=== PATIENT | male | born 1995 | race Caucasian/White ===

== ENCOUNTER → 2018-01-18 16:13 | Outpatient (CLI) | payer BC, SELFPAY ==
--- NOTE | 2018-01-18 16:17 | XR_ITS ---
XR knee RT 3V HISTORY: ITS.REASON: RIGHT KNEE PAIN ORDERING PHYSICIAN: Rylee Alexander PATIENT AGE: 22 years COMPARISON: None FINDINGS: No fracture or dislocation. No lytic or blastic change. Normal mineralization. No significant arthritic changes evident. No other significant findings IMPRESSION: Negative Knee
== END ==
PROVIDERS: PCP Nurse Practitioner Family; Visit Provider Nurse Practitioner Family
DX: M25.561 Pain in right knee (principal)
CPT/HCPCS: 73562

== ENCOUNTER → 2018-01-26 14:54 | Outpatient (CLI) | payer BC, SELFPAY ==
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
== END ==
PROVIDERS: Family Provider Family Medicine; PCP Nurse Practitioner Family; Visit Provider Family Medicine
DX: M25.561 Pain in right knee (principal)
CPT/HCPCS: 73721

== ENCOUNTER → 2018-08-03 10:27 | Outpatient (CLI) | payer BC, SELFPAY ==
--- NOTE | 2018-08-03 10:37 | NVE_ITS ---
Venous Exam Indications: 729.81 Swelling of limb. IMPRESSIONS 1. There is no evidence of significant Reflux. 2. No evidence of deep or superficial vein thrombosis involving the right lower extremity 3. No evidence of deep or superficial vein thrombosis involving the left lower extremity History: Risk factors: Obese. Complete lower extremity venous duplex evaluation. Doppler flow study including spectral analysis, color and moran scale imaging. Location: Vascular laboratory. Patient status: Outpatient. CRITICAL FINDINGS - Reported to: [facility] office - 08/03/2018 - 10:55 am - Neg. for DVT Tables: Venous flow and imaging: + +-------+ + Location Overall Flow properties + +-------+ + Right common femoral Patent Normal phasicity; spontaneous; normal augmentation; compressible + +-------+ + Right saphenofemoral junction Patent Compressible + +-------+ + Right profunda femoral Patent Compressible + +-------+ + Right femoral Patent Normal phasicity; spontaneous; normal augmentation; compressible; no reflux + +-------+ + Right greater saphenous Patent Normal phasicity; spontaneous; normal augmentation; compressible + +-------+ + Right popliteal Patent Normal phasicity; spontaneous; normal augmentation; compressible + +-------+ + Right posterior tibial Patent Compressible + +-------+ + Right peroneal Patent Compressible + +-------+ + Right gastrocnemius Patent Compressible + +-------+ + Right soleal Patent Compressible + +-------+ + Left common femoral Patent Normal phasicity; spontaneous; normal augmentation; compressible + +-------+ + Left saphenofemoral junction Patent Compressible + +-------+ + Left profunda femoral Patent Compressible + +-------+ + Left femoral Patent Normal phasicity; spontaneous; normal augmentation; compressible + +-------+ + Left greater saphenous
--- NOTE | 2018-08-03 11:05 | XR_ITS ---
XR chest 2V HISTORY: ITS.REASON: COUGH ORDERING PHYSICIAN: Richardson Melgoza MD PATIENT AGE: 22 years COMPARISON: 02/23/2015 FINDINGS: There is cardiomegaly with pulmonary venous congestion and interstitial edema consistent with congestive heart failure. No lobar consolidation or collapse is evident. Suspect trace bilateral effusions. No acute bony findings. IMPRESSION: CHF with interstitial edema and trace bilateral effusions Significant findings called to Richardson Melgoza MD on 08/03/2018 11:25 AM.
== END ==
PROVIDERS: PCP Family Medicine; Visit Provider Family Medicine
DX: R05 Cough (principal); R60.9 Edema, unspecified
CPT/HCPCS: 71046; 93970

== ENCOUNTER 2019-11-17 12:59 | Emergency (ER) | payer BC, SELFPAY ==
[2019-11-17 13:18] VITALS: BP 149/97; PULSE 96; RESP 18; TEMP 36.2; O2SAT 97; BMI 42.3
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
[2019-11-17 14:02] VITALS: BP 149/97; PULSE 96; RESP 18; TEMP 36.2; O2SAT 97
== END 2019-11-17 14:03 | disposition home or self-care (01) ==
PROVIDERS: Emergency Provider Nurse Practitioner Family; PCP Family Medicine
DX: Z20.828 Contact with and (suspected) exposure to other viral communicable diseases (principal)
CPT/HCPCS: 99201; U0003

== ENCOUNTER 2020-03-04 17:09 | Emergency (ER) | payer BC, SELFPAY ==
[2020-03-04 17:20] VITALS: BP 155/91; PULSE 84; RESP 18; TEMP 36.9; O2SAT 99; BMI 39.8
--- NOTE | 2020-03-04 17:39 | HMH.EDUTC ---
[facility] [place] [facility] [place] Clinical Impression: Urinary problem in male Disposition: Still a Patient Condition on Discharge: Good Referrals: Richardson Melgoza MD [Primary Care Provider] - Time of Disposition: 17:51 Medical Decision Making - Robert Inquiry Pt receiving controlled substance: No Robert was queried for this patient: No Vital Signs: 03/04/20 17:20 Temperature 98.4 F Temperature Source Oral Pulse Rate [Right Brachial] 84 Respiratory Rate 18 Blood Pressure [Right Arm] 155/91 H Blood Pressure Mean [Right Arm] 112 Blood Pressure Source [Right Arm] Automatic Cuff Blood Pressure Position [Right Arm] Sitting 02 Sat by Pulse Oximetry 99 Oxygen Delivery Method Room Air - Lab Data Lab results reviewed: Yes: I reviewed the patient's lab results. Medical Decision Narrative: Urine dip completed in [facility] patient denies history of kidney stones, complains of bilateral flank pain and hurting when he urinates, Urine dip showed large blood and 3+protein, Patient reports not feeling right having flank pain, Spoke with Dr Pavon in ED and patient transferred to ED for further work up and evaluation Patient transferred to room 5 without complications [facility] [place] [facility] [place] HPI - General Stated complaint: need Kidney function checked Time Seen by Provider: 03/04/20 17:39 Mode of Arrival: Ambulatory Source of Information: Patient Limitations: No Limitations Description of Symptoms (Recalled from Triage Doc. by RN): PATIENT C/O OCCASIONAL DISCOMFORT WHEN URINATING HEENT Symptoms (Recalled from RN notes): No Resp Symptoms (Recalled from RN notes): No Skin Symptoms (Recalled from RN notes): No MS Symptoms (Recalled from RN notes): No Functional Status (Recalled from RN notes): WNL - History of Present Illness Provider Complaint: Patient state that he has history of Kidney failure/problems States that he has been having some pain on and off when he urinates but last night started having pain in his back around his kidneys States that it has continued to get worse and just hurts and dont feel right States that he had kidney failure last year and feels like it did then State that today he just has not felt well and felt off, the pain in his kidneys has continued State that he called his PCP and the office was closed so he came in to get checked worried that his kidney function will be off again and wanted to get checked early - Related Data Allergies Allergy/AdvReac Type Severity Reaction Status Date / Time Penicillins [PENICILLINS] Allergy Unknown Verified 12/30/17 10:06 - Worker's Comp Is this a Worker's Comp case?: No [facility] History - Hepatitis A Screen Drug use history?: No High risk sexual behaviors?: No History of sexually transmitted infection?: No Currently employed?: No Childcare worker?: No Do you have indoor plumbing?: Yes Do you have electricity?: Yes Attestation statement:: This patient has been screened for Hepatitis A risk factors. Medical History: Denies:: Cancer, Diabetes Mellitus Type 1, Diabetes Mellitus Type 2, Internal Pacemaker, MRSA Other Surgeries: No: Pacemaker Amputation: No Fractures: No - Social History Smoking Status: Never smoker Alcohol Intake: never Occupational Status: other ROS Obtained: Yes All systems reviewed & no additional complaints, Yes Systems reviewed as appropriate & no additional complaints - Constitutional Constitutional: Reports system reviewed and no additional complaints, except as docu, Denies fever(s) - ENT Ears, Nose, Mouth, and Throat: Reports system reviewed and no additional complaints, except as docu, Reports dizziness - Respiratory Respiratory: Yes system reviewed and no additional complaints, except as docu - Gastrointestinal Gastrointestingal: Reports: system reviewed and no additional complaints, except as docu - Genitourinary Male Genitourinary: Reports flank pain, Reports other (Reports pain with urination at times, pain in kidney area ) [facility]ica
[2020-03-04 17:43] VITALS: BP 151/102; PULSE 80; O2SAT 98
--- NOTE | 2020-03-04 17:45 | PC.NURSE ---
PATIENT SENT TO ER PER CASSIA GUIDRY APRN WHO GAVE REPORT TO Eugenio LOUIS RN
--- NOTE | 2020-03-04 17:49 | XR_ITS ---
PROCEDURE: XR CHEST PORTABLE CLINICAL HISTORY: cough COMPARISON: CR CXR CHEST(2 VIEWS-NOT PORTABLE) from 02/23/2015 FINDINGS: The cardiomediastinal silhouette and pulmonary vascularity are within normal limits. The lungs are clear without infiltrates, suspicious nodules, or pleural effusions. No acute bony abnormalities. IMPRESSION: No acute findings. Dictated by: Nilton Mcfarland MD 03/04/2020 18:39 Nilton Mcfarland MD in [place] 03/04/2020 18:39
[2020-03-04 17:51] LABS: Apearance,Urine Clear (Clear); Bilirubin,Urine Negative (Negative); Blood, Urine 3+ (Negative); Color,Urine Yellow (Yellow); Glucose,Urine (UA) Negative (Negative); Ketones,Urine Negative (Negative); PH,Urine 5.5 (5.0-8.5); Protein,Urine 3+ (Negative); Specific Gravity, Urine 1.025 (1.005-1.030)
[2020-03-04 17:52] LABS: UTC Leukocyte Esterase,Urine Negative (Negative); UTC Nitrate,Urine Negative (Negative); Urobilinogen,Urine 0.2 EU/dl (0.2)
--- NOTE | 2020-03-04 17:52 | HMH.EDGENADL ---
ED Disposition Clinical Impression: Viral syndrome, Nephropathy Fatigue Qualifiers: Fatigue type: unspecified Qualified Code(s): R53.83 - Other fatigue Disposition: Home, Self-Care Condition on Discharge: Fair Instructions: Preventing the Spread of Coronavirus Discharge Instructions, DI for Nephrotic Syndrome Additional Instructions: You have been evaluated for generalized fatigue, possibly due to viral syndrome or COVID-19. Please stay hydrated. Take all medications as prescribed. Follow-up with your graduate advisor. Return to the emergency department if you have any new or worsening symptoms. Referrals: Richardson Melgoza MD [Primary Care Provider] - Forms: Work/School Release Time of Disposition: 19:05 - Critical Care Critical Care Time: No Attestation: On 03/04/20, the high probability of a clinically significant, sudden or life threatening deterioration of the following system(s) required my full and direct attention, intervention and personal management. The time I documented below is in addition to time spent performing reported procedures but includes the following listed in this critical care notation. Medical Decision Making - Medical Records Medical records reviewed: Yes: I reviewed the patient's medical records. - Robert Inquiry Pt receiving controlled substance: No Vital Signs: 03/04/20 17:20 03/04/20 17:43 03/04/20 18:00 Temperature 98.4 F Temperature Source Oral Pulse Rate [Right Brachial] 84 80 74 Respiratory Rate 18 17 Blood Pressure [Right Arm] 155/91 H 151/102 H 155/93 H Blood Pressure Mean [Right Arm] 112 118 113 Blood Pressure Source [Right Arm] Automatic Cuff Automatic Cuff Blood Pressure Position [Right Arm] Sitting Sitting 02 Sat by Pulse Oximetry 99 98 99 Oxygen Delivery Method Room Air Room Air - Lab Data Lab Results 03/04/20 17:27: Urine Color Yellow, Urine Appearance Clear, Urine pH 5.5, Ur Specific [place] 1.025, Urine Protein 3+, Urine Glucose (UA) Negative, Urine Ketones Negative, Urine Blood 3+, Urine Nitrate Negative, Urine Bilirubin Negative, Urine Urobilinogen 0.2, Ur Leukocyte Esterase Negative 03/04/20 17:48: Urine Color Yellow, Urine Appearance Clear, Urine pH 6.0, Ur Specific [place] 1.025, Urine Protein 3+, Urine Glucose (UA) Negative, Urine Ketones Negative, Urine Blood 3+, Urine Nitrate Negative, Urine Bilirubin Negative, Urine Urobilinogen 0.2, Ur Leukocyte Esterase Negative, Urine RBC 5-10, Urine WBC 5-10, Ur Squamous Epith Cells Occasional, Urine Bacteria Trace 03/04/20 17:49: WBC 8.5, RBC 5.05, Hgb 16.6, Hct 48.8, MCV 96.6 H, MCH 32.9 H, MCHC 34.0, RDW 14.3, Plt Count 303, MPV 9.9, Neut % (Auto) 62.7, Lymph % (Auto) 25.5, [place] % (Auto) 7.6, Eos % (Auto) 2.9, Baso % (Auto) 1.4, Neut # (Auto) 5.3, Lymph # (Auto) 2.2, [place] # (Auto) 0.6, Eos # (Auto) 0.3, Baso # (Auto) 0.1 03/04/20 17:49: Sodium 138, Potassium 3.7, Chloride 105, Carbon Dioxide 25, Anion Gap 11.7, BUN 30 H, Creatinine 1.80 H, Estimated Creat Clear 124, Estimated GFR 47 L, Est GFR ( Amer) 57 L, Glucose 106 H, Calcium 9.1, Total Bilirubin 0.3, AST 34, ALT 26, Alkaline Phosphatase 77, Total Protein 7.3, Albumin 4.2, Globulin 3.1, Albumin/Globulin Ratio 1.4 Result diagrams: 03/04/20 17:49 03/04/20 17:49 Orders (Tests/Meds): ORDERS Category Date Time Status Covid-19 Nasal PCR Sendout Vj Stat Lab 03/04/20 17:57 Ordered Medical Decision Narrative: In summary this is a 24-year-old male presenting to the emergency department with dysuria, malaise. Patient clinically stable on arrival. Vital signs within normal limits. Slightly hypertensive. Concern for worsening nephropathy, acute kidney injury, rhabdo. Will obtain CBC, CMP, urinalysis. Urinalysis shows 3+ protein and 3+ blood, concerning for nephrotic syndrome. Initial laboratory results show creatinine of 1.80. Patient says that his baseline creatinine is around 1.9. His has been in contact with his graduate advisor at
--- NOTE | 2020-03-04 17:56 | PC.NURSE ---
Radiology at bedside
[2020-03-04 18:00] VITALS: BP 155/93; PULSE 74; RESP 17; O2SAT 99; BMI 40.0
[2020-03-04 18:09] LABS: Chloride 105 mmol/L (98-107); Potassium 3.7 mmoL/L (3.5-5.1); Sodium 138 mmol/L (136-145)
[2020-03-04 18:10] LABS: Microscopic, Urine URINE MICROSCOPIC (MICROSCOPIC)
[2020-03-04 18:11] LABS: Alanine Aminotransferase 26 U/L (12-78); Aspartate Amino Transferase 34 U/L (17-59); Basophils # 0.1 K/mm3 (0-0.2); Basophils % 1.4 % (0.1-2.0); Blood Urea Nitrogen 30 mg/dl (9-20); Creatinine Clearance Estimated 124 mL/min (50-200); Eosinophils # 0.3 K/mm3 (0.0-0.4); Eosinophils % 2.9 % (0.1-12.0); Estimated Glomerular Filt Rate 47 ml/min (>60); GFR (African American) 57 ML/MIN (>60); Hematocrit 48.8 % (42.0-52.0); Hemoglobin 16.6 g/dL (14.1-18.0); Lymphocytes # 2.2 K/mm3 (0.7-4.5); Lymphocytes % 25.5 % (10-50); Mean Corpuscular Hemoglobin 32.9 pg (27.0-31.2); Mean Corpuscular Volume 96.6 fl (80-94); Mean Platelet Volume 9.9 fl (7.4-10.4); Monocytes # 0.6 K/mm3 (0.1-1.0); Monocytes % 7.6 % (1.7-9.3); Neutrophils # 5.3 K/mm3 (1.8-7.8); Neutrophils % 62.7 % (37.0-80.0); Platelet Count 303 K/mm3 (142-424); Red Blood Count 5.05 M/mm3 (4.60-6.20); Red Cell Distribution Width 14.3 % (11.5-17.5); White Blood Count 8.5 K/mm3 (4.8-10.8)
[2020-03-04 18:12] LABS: Albumin Level 4.2 g/dl (3.5-5.0); Albumin/Globulin Ratio 1.4 (1.1-1.8); Alkaline Phosphatase 77 U/L (38-126); Anion Gap 11.7 mEq/L (5-15); Bilirubin,Total 0.3 mg/dl (0.2-1.3); Calcium 9.1 mg/dl (8.4-10.2); Carbon Dioxide 25 mmol/L (22.0-30.0); Globulin 3.1 g/dL (1.3-3.2); Glucose 106 mg/dl (74-100); Total Protein,Serum 7.3 g/dl (6.3-8.2)
[2020-03-04 18:23] LABS: Appearance,Urine CLEAR (Clear); Bilirubin,Urine Negative (Negative); Blood, Urine 3+ (Negative); Color,Urine YELLOW (Yellow); Glucose,Urine (UA) Negative (Negative); Ketones,Urine Negative (Negative); Leukocyte Esterase,Urine Negative (Negative); Nitrate,Urine Negative (Negative); Protein,Urine 3+ (Negative); Specific Gravity, Urine 1.025 (1.005-1.030); Urobilinogen,Urine 0.2 EU/dl (0.2)
[2020-03-04 18:58] LABS: Bacteria,Urine Trace /lpf; Squamous Epithelial Cell,Urine Occasional #/hpf (0-5)
[2020-03-04 19:35] VITALS: BP 138/96; PULSE 72; RESP 16; TEMP 36.6; O2SAT 98
[2020-03-05 21:27] LABS: Covid-19 Nasal PCR Sendout Lex Not Detected
== END 2020-03-04 19:36 | disposition home or self-care (01) ==
LOC: UTC 17:13 → ER 17:41
PROVIDERS: Nurse Practitioner; Emergency Provider Emergency Medicine; PCP Family Medicine
DX: Z20.828 Contact with and (suspected) exposure to other viral communicable diseases (principal); B34.9 Viral infection, unspecified; N28.9 Disorder of kidney and ureter, unspecified; Z88.0 Allergy status to penicillin
CPT/HCPCS: 71045; 80053; 81001; 81003; 85025; 99282; U0004

== ENCOUNTER 2020-08-08 15:58 | Day surgery (SDC) | payer BC, SELFPAY ==
[2020-08-08] VITALS (15 sets, daily range): BP systolic 126–164; BP diastolic 74–100; PULSE 70–102; RESP 16–22; TEMP 36.4–43; O2SAT 94–99; BMI 36.6
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
--- NOTE | 2020-08-08 17:46 | PC.NURSE ---
at bedside performing sutures at this time.
--- NOTE | 2020-08-08 17:59 | PC.NURSE ---
cutting and creasing press operator paging ortho rn concurrent review per ER MD request
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
--- NOTE | 2020-08-08 18:53 | HMH.ORTHOCON ---
*Admission Date: 08/08/20 *Reason for consult:: Laceration right thigh *History of present illness: Patient is a 24-year-old male seen in the ER for orthopedic consultation. Patient states he sustained a laceration to his right distal thigh while working with a utility knife. Patient states that he bled a lot at the time of the injury which subsided spontaneously. However, it started bleeding again when he was initially seen in the [facility]. Therefore patient was transferred to the ER and was evaluated by the ER physician under local anesthesia. The ER physician reports that the wound could not be explored properly as it is very small. He also reports active bleeding from the laceration with surrounding hematoma. Patient denies any distal tingling, numbness or weakness. He was given a tetanus immunization in the urgent treatment center. He is not on any blood thinners. He has history of hypertension and renal impairment. [facility] History I have reviewed the patient's past medical history: Yes Medical History: Denies:: Cancer, Diabetes Mellitus Type 1, Diabetes Mellitus Type 2, Internal Pacemaker, MRSA *Have you ever received a pneumonia vaccine?: No *Have you received a flu vaccine this season?: No Other Surgeries: No: Pacemaker Amputation: No Fractures: No - *Social History Smoking Status: Never smoker Alcohol Intake: never *Occupational Status:: other *Travel in the last 8 weeks: None Family Hx:: Non-contributory Review of Systems - Review of Systems Review of systems:: pertinent systems reviewed and negative unless documented below - *Neurologic Denies numbness, Denies weakness Meds Home Medications Medication Instructions Recorded Confirmed Type No Known Home Medications 03/04/20 08/08/20 History Allergies Allergy/AdvReac Type Severity Reaction Status Date / Time Penicillins [PENICILLINS] Allergy Unknown Verified 08/08/20 16:21 Exam Vital signs and Labs for Last 24 Hours: Temp Pulse Resp BP Pulse Ox 97.6 F 80 16 140/88 99 08/08/20 16:14 08/08/20 17:30 08/08/20 16:14 08/08/20 17:30 08/08/20 17:30 I & O for Last 24 hours: Intake & Output 08/06/20 08/07/20 08/08/20 08/09/20 11:59 11:59 11:59 11:59 Weight 285 lb - Constitutional no acute distress, obese, cooperative - *Routine HEENT Exam Head: Present: normocephalic, atraumatic Eye: Present: EOMI, PERRL ENT: Present: mucous membranes moist - *Routine Neck Exam Present: supple, full ROM, trachea midline. Absent: lymphadenopathy - *Routine Respiratory Exam Present: CTA bilaterally. Absent: respiratory distress - *Routine Cardiovascular Exam Present: RRR, Normal S1, Normal S2 - *Routine Abdominal Exam Present: soft, normoactive bowel sounds. Absent: organomegaly - *Routine Extremities Exam Comments: On examination of the right lower extremity, there is a 1.5 to 2 cm laceration (more like a stab injury) over the anteromedial medial aspect of the distal thigh/knee.? The edges are sharp and there is a small amount of bleeding from the wound at present.? No pulsatile bleeding is noted at the time of examination but there is dried blood over the thigh and leg. No underlying structures are visible through the small laceration. However, there is a sizable hematoma around the wound.? No visible contamination or foreign body material noted. The distal extent of the wound is in line with the proximal pole of the patella.? On examination of the knee joint itself, there is no effusion.? Knee joint is nontender and ligamentously stable.? Patient is able to actively straight leg raise and the quadriceps tendon and patellar tendons are clinically intact.? He is nontender over the hip joint, tib-fib, ankle and foot.? Distal pulses (DP, TP) are 2+; capillary refill is brisk.? Altered sensation noted over the anterior aspect of the knee; however, patient had local anesthesia by the ER physician. Sensation is intact to light touch dist
[2020-08-08 19:16] LABS: Basophils # 0.1 K/mm3 (0-0.2); Basophils % 0.5 % (0.1-2.0); Eosinophils # 0.2 K/mm3 (0.0-0.4); Eosinophils % 1.1 % (0.1-12.0); Hematocrit 41.3 % (42.0-52.0); Hemoglobin 13.7 g/dL (14.1-18.0); Lymphocytes # 2.1 K/mm3 (0.7-4.5); Lymphocytes % 14.4 % (10-50); Mean Corpuscular HGB Conc 33.2 g/dL (31.8-35.4); Mean Corpuscular Hemoglobin 31.1 pg (27.0-31.2); Mean Corpuscular Volume 93.7 fl (80-94); Mean Platelet Volume 7.7 fl (7.4-10.4); Monocytes # 0.7 K/mm3 (0.1-1.0); Neutrophils # 11.3 K/mm3 (1.8-7.8); Platelet Count 286 K/mm3 (142-424); Red Cell Distribution Width 12.5 % (11.5-17.5); White Blood Count 14.3 K/mm3 (4.8-10.8)
[2020-08-08 19:19] LABS: Chloride 107 mmol/L (98-107); Potassium 4.4 mmoL/L (3.5-5.1); Sodium 139 mmol/L (136-145)
[2020-08-08 19:22] LABS: Anion Gap 11.4 mEq/L (5-15); Blood Urea Nitrogen 32 mg/dl (9-20); Calcium 8.8 mg/dl (8.4-10.2); Carbon Dioxide 25 mmol/L (22.0-30.0); Creatinine Clearance Estimated 88 mL/min (50-200); Estimated Glomerular Filt Rate 34 ml/min (>60); GFR (African American) 41 ML/MIN (>60); Glucose 99 mg/dl (74-100)
[2020-08-08 19:47] LABS: Coronavirus 19 IgG Antibody Negative (Negative); Coronavirus 19 IgM Antibody Negative (Negative)
--- NOTE | 2020-08-08 20:01 | HMH.ANESCL ---
[facility] Anesthesia Checklist - Patient Identification Patient Identification: Arm Band - Structural Data Admitted From: Emergency Dept Planned Operative Procedure/s: I&D Right Knee Laceration Consent for Planned Operative Procedure(s) Verified: Yes Verified Documents: Surgical Consent, History and Physical - NPO Status Verified Time NPO: 17:30 (1730 clear liquids, 1200 solid foods) - Additional verifications Anesthesia Reactions: No - Airway Assessment C-Spine Mobility Assessed: Yes (mp2) TMJ Mobility Assessed: Yes Dentition: Good Dentition - Neurological Assessment Level of Consciousness: Awake, Alert - Anesthesia Plan Anesthesia Risk discussed: Yes Anesthesia Plan: Verified ASA Class: II Anesthesia Type: General [facility] History I have reviewed the patient's past medical history: Yes Medical History: Reports:: Hypertension, Renal Disease Denies:: Cancer, Diabetes Mellitus Type 1, Diabetes Mellitus Type 2, Internal Pacemaker, MRSA *Have you ever received a pneumonia vaccine?: No *Have you received a flu vaccine this season?: No Anesthesia experience/problems:: nac Other Surgeries: Yes: No Previous Surgery. No: Pacemaker Amputation: No Fractures: No - *Social History Smoking Status: Never smoker Alcohol Intake: never Substance Use Type: denies use *Occupational Status:: other *Travel in the last 8 weeks: None Family Hx:: No significant family history
--- NOTE | 2020-08-08 21:07 | HMH.ANESI ---
[facility] Anesthesia Record Part I Intake, IV Amount: 1,200 Estimated blood loss (mL): 10 Urine output (mL): 0 Blood Pressure: 163/99 SaO2: 94 Pulse Rate: 83 Respiratory Rate: 16 Temperature: 98.7 F Patient is:: Drowsy, Stable Stable to PACU at:: 21:05
--- NOTE | 2020-08-08 21:37 | HMH.OPNOTE ---
Date of procedure: 08/08/20 Pre-op Diagnosis:: Laceration, right thigh Post-op Diagnosis:: Same Procedure performed:: 1. Wound exploration and debridement, laceration right thigh 2. Primary closure of laceration, right thigh 3. Saline load test, right knee Surgeon:: Luis Alberto Dean MD Hot Press Operator(s):: Nay Yates SENIOR STORAGE ENGINEER:: Leonel Stanton Anesthesia: LMA Estimated blood loss (mL): 5 Clinical Note:: Patient is a 24-year-old male seen earlier this evening in the ER for orthopedic consultation. Patient states he sustained a laceration to his right distal thigh while working with a utility knife. Patient states that he bled a lot at the time of the injury which subsided spontaneously. However, it started bleeding again when he was initially seen in the [facility]. Therefore patient was transferred to the ER and was evaluated by the ER physician under local anesthesia. The ER physician reports that the wound could not be explored properly as it is very small. He also reports active bleeding from the laceration with surrounding hematoma. Patient denies any distal tingling, numbness or weakness. No history of any previous knee problems or surgery. He was given a tetanus immunization in the urgent treatment center. He is not on any blood thinners. He has history of hypertension and renal impairment. On examination of the right lower extremity, there is a 1.5 to 2 cm laceration (more like a stab injury) over the anteromedial aspect of the distal thigh/knee. The edges are sharp and there is a small amount of bleeding from the wound at present. No pulsatile bleeding is noted at the time of examination but there is dried blood over the thigh and leg. No underlying structures are visible through the small laceration. However, there is a sizable hematoma around the wound. No visible contamination or foreign body material noted. The distal extent of the wound is in line with the proximal pole of the patella. On examination of the knee joint itself, there is no effusion. Knee joint is nontender and ligamentously stable. Patient is able to actively straight leg raise and the quadriceps tendon and patellar tendons are clinically intact. He is nontender over the hip joint, tib-fib, ankle and foot. Distal pulses (DP, TP) are 2+; capillary refill is brisk. Altered sensation noted over the anterior aspect of the knee; however, patient had local anesthesia by the ER physician. Sensation is intact to light touch distally over the leg, foot and ankle. Diagnostic imaging: X-rays of the right knee performed at [facility] reviewed. The x-rays do not show any obvious bony injury. No effusion free air noted in the knee joint. No foreign body material noted in the soft tissue. No acute bony injury like fracture, subluxation or dislocation noted. Please refer to my consult note for full details. Operative findings:: As noted in the operative report below Operative note:: Patient was brought to the operating room and placed supine on the operating table. All the bony prominences were appropriately padded. A general anesthesia was administered by the medical office assistant instructor.? A well-padded tourniquet cuff was placed high over the right upper thigh.? Examination showed a clean laceration over the anteromedial aspect of the distal thigh at the level of superior pole of the patella measuring about 1.5-2 cm in size.? Minimal active bleeding is noted from the wound.? Examination of the right knee under anesthesia was performed. No knee effusion was noted. Knee range of motion was 0-140 degrees of flexion. Knee joint is noted to be ligamentously stable. The right lower extremity was then prepped and draped in the usual sterile fashion. A preprocedure timeout was performed as per protocol. Administration of prophylactic IV antibiotics was confirmed with the medical office assistant instructor.? Initially, the wound was thoroughly washed out with normal saline with bacitracin.? The limb was exsanguinated with
--- NOTE | 2020-08-11 08:10 | HMH.ANESII ---
[facility] Anesthesia Record Part II Discharge Time: 21:38 Destination: Surgical Day Care (OP Surgery) PACU nurse assessment reviewed?: Yes Patient Condition:: Good Anesthesia Complications:: None Swallowing reflex intact?: Yes Cyanosis?: No Blood Pressure: 142/94 Pulse Rate: 81 Temperature: 98.6 F Mental Status: Alert & Oriented Pain level:: 7 Nausea and/or vomitting:: None Intake, IV Amount: 0
[2020-08-11 08:11] VITALS: BP 142/94; PULSE 81; TEMP 37
== END 2020-08-08 22:10 ==
LOC: UTC 16:21 → ER 16:52 → SDC 19:55
PROVIDERS: Emergency Provider Emergency Medicine; PCP Family Medicine; Visit Provider Orthopaedic Surgery
PROC: (CPT 12031; principal; 2020-08-08 07:30)
DX: S71.111A Laceration without foreign body, right thigh, initial encounter (principal); W26.0XXA Contact with knife, initial encounter
CPT/HCPCS: 12031; 73562; 80048; 85025; 86328; 87070; 87075; 87205; 90471; 90714; 96374; 99283; J2405

== ENCOUNTER 2020-12-02 15:16 | Emergency (ER) | payer BC, SELFPAY ==
[2020-12-02 17:08] VITALS: BP 144/95; PULSE 77; RESP 16; TEMP 36.6; O2SAT 97; BMI 39.2
--- NOTE | 2020-12-02 17:26 | HMH.EDUTC ---
[facility] – [place], [place] Disposition Clinical Impression: IgA nephropathy, Renal insufficiency, Viral syndrome, Exposure to COVID-19 virus Disposition: Home, Self-Care Condition on Discharge: Good Instructions: IgA Nephropathy, Preventing the Spread of Coronavirus Discharge Instructions Additional Instructions: Follow up with your primary care doctor regarding your blood work results. We will give you a copy of local primary care doctors that are taking new patients. It's hard drive all the way to [place] when you're sick. Continue to see you nephologist in [place]. Those kinds of doctors are not very common. Quarantine until you know the results of your covid-19 test. If it is positive, the health department should call you and give you further instructions about your length of Quarantine and other things. Notify your school or workplace of your results and follow their instructions regarding return to work/school. GO TO THE ER FOR ANY WORSENING SYMPTOMS OR CONCERNS Referrals: Richardson Melgoza MD [Primary Care Provider] - Time of Disposition: 17:35 Medical Decision Making - Medical Records Medical records reviewed: No: I reviewed the patient's medical records. - Robert Inquiry Pt receiving controlled substance: No Vital Signs: 12/02/20 17:08 12/02/20 17:59 Temperature 97.8 F 98.2 F Temperature Source Oral Pulse Rate 79 Pulse Rate [Left] 77 Respiratory Rate 16 16 Blood Pressure 133/84 Blood Pressure [Right Arm] 144/95 H Blood Pressure Mean [Right Arm] 111 02 Sat by Pulse Oximetry 97 - Lab Data Lab Results 12/02/20 17:40: WBC 6.0, RBC 4.40 L, Hgb 14.0 L, Hct 41.9 L, MCV 95.2 H, MCH 31.8 H, MCHC 33.4, RDW 12.7, Plt Count 284, MPV 8.4, Neut % (Auto) 62.3, Lymph % (Auto) 28.1, [place] % (Auto) 5.3, Eos % (Auto) 3.0, Baso % (Auto) 1.2, Neut # (Auto) 3.8, Lymph # (Auto) 1.7, [place] # (Auto) 0.3, Eos # (Auto) 0.2, Baso # (Auto) 0.1 12/02/20 17:40: Sodium 142, Potassium 4.5, Chloride 110 H, Carbon Dioxide 25, Anion Gap 11.5, BUN 33 H, Creatinine 2.60 H, Estimated Creat Clear 81, Estimated GFR 30 L, Est GFR ( Amer) 37 L, Glucose 95, Calcium 8.5, Total Bilirubin 0.3, AST 23, ALT 19, Alkaline Phosphatase 64, Total Protein 5.9 L, Albumin 3.3 L, Globulin 2.6, Albumin/Globulin Ratio 1.3 Result diagrams: 12/02/20 17:40 12/02/20 17:40 Medical Decision Narrative: He is to follow up with her window machine operator and his pcp. [facility] [place] [place] HPI - General Stated complaint: cough, headache, loss of taste/smell Time Seen by Provider: 12/02/20 17:27 Mode of Arrival: Ambulatory Source of Information: Patient Limitations: No Limitations Description of Symptoms (Recalled from Triage Doc. by RN): pt c/o a AHMADI, cough and runny nose. HEENT Symptoms (Recalled from RN notes): Yes (AHMADI and runny nose) Resp Symptoms (Recalled from RN notes): Yes (cough) Skin Symptoms (Recalled from RN notes): No MS Symptoms (Recalled from RN notes): No Functional Status (Recalled from RN notes): na - History of Present Illness Provider Complaint: He came in today to have his renal function checked. He has a history of Iga Nephrophahy. He states that it has been too long since he has had it checked. He also has a runny nose and sinus congestion, so he would like to be tested for covid-19. He denies any fever or chills. - Related Data Home Medications Medication Instructions Recorded Confirmed No Known Home Medications 03/04/20 08/20/20 Allergies Allergy/AdvReac Type Severity Reaction Status Date / Time Penicillins [PENICILLINS] Allergy Unknown Verified 08/20/20 09:36 - Worker's Comp Is this a Worker's Comp case?: No [facility] History - Hepatitis A Screen Drug use history?: No High risk sexual behaviors?: No History of sexually transmitted infection?: No Currently employed?: No Childcare worker?: No Do you have indoor plumbing?: Yes Do you have electricity?: Yes Attestation statement:: This patient has been screened for Hepat
[2020-12-02 17:59] VITALS: BP 133/84; PULSE 79; RESP 16; TEMP 36.8
[2020-12-02 17:59] LABS: Basophils # 0.1 K/mm3 (0-0.2); Basophils % 1.2 % (0.1-2.0); Eosinophils # 0.2 K/mm3 (0.0-0.4); Hematocrit 41.9 % (42.0-52.0); Lymphocytes # 1.7 K/mm3 (0.7-4.5); Lymphocytes % 28.1 % (10-50); Mean Corpuscular HGB Conc 33.4 g/dL (31.8-35.4); Mean Corpuscular Hemoglobin 31.8 pg (27.0-31.2); Mean Corpuscular Volume 95.2 fl (80-94); Mean Platelet Volume 8.4 fl (7.4-10.4); Monocytes # 0.3 K/mm3 (0.1-1.0); Monocytes % 5.3 % (1.7-9.3); Neutrophils # 3.8 K/mm3 (1.8-7.8); Neutrophils % 62.3 % (37.0-80.0); Platelet Count 284 K/mm3 (142-424); Red Cell Distribution Width 12.7 % (11.5-17.5)
[2020-12-02 18:01] LABS: Chloride 110 mmol/L (98-107); Potassium 4.5 mmoL/L (3.5-5.1); Sodium 142 mmol/L (136-145)
[2020-12-02 18:03] LABS: Alanine Aminotransferase 19 U/L (12-78); Aspartate Amino Transferase 23 U/L (17-59); Blood Urea Nitrogen 33 mg/dl (9-20); Creatinine Clearance Estimated 81 mL/min (50-200); Estimated Glomerular Filt Rate 30 ml/min (>60); GFR (African American) 37 ML/MIN (>60)
[2020-12-02 18:04] LABS: Albumin Level 3.3 g/dl (3.5-5.0); Albumin/Globulin Ratio 1.3 (1.1-1.8); Alkaline Phosphatase 64 U/L (38-126); Anion Gap 11.5 mEq/L (5-15); Bilirubin,Total 0.3 mg/dl (0.2-1.3); Calcium 8.5 mg/dl (8.4-10.2); Carbon Dioxide 25 mmol/L (22.0-30.0); Globulin 2.6 g/dL (1.3-3.2); Glucose 95 mg/dl (74-100); Total Protein,Serum 5.9 g/dl (6.3-8.2)
== END 2020-12-02 17:59 | disposition home or self-care (01) ==
PROVIDERS: Emergency Provider Nurse Practitioner Family; PCP Family Medicine
DX: N02.8 Recurrent and persistent hematuria with other morphologic changes (principal); N28.9 Disorder of kidney and ureter, unspecified; B34.9 Viral infection, unspecified; Z20.822 Contact with and (suspected) exposure to COVID-19; I10 Essential (primary) hypertension; Z79.899 Other long term (current) drug therapy
CPT/HCPCS: 80053; 85025; 99202; G0463; U0003

== ENCOUNTER → 2020-12-31 13:16 | Outpatient (CLI) | payer BC, SELFPAY ==
[2020-12-31 13:20] LABS: Microscopic, Urine URINE MICROSCOPIC (MICROSCOPIC)
[2020-12-31 13:32] LABS: Appearance,Urine CLEAR (Clear); Basophils # 0.1 K/mm3 (0-0.2); Basophils % 1.2 % (0.1-2.0); Bilirubin,Urine Negative (Negative); Blood, Urine 3+ (Negative); Color,Urine YELLOW (Yellow); Eosinophils # 0.3 K/mm3 (0.0-0.4); Eosinophils % 2.6 % (0.1-12.0); Glucose,Urine (UA) Negative (Negative); Hematocrit 40.6 % (42.0-52.0); Hemoglobin 13.4 g/dL (14.1-18.0); Ketones,Urine Negative (Negative); Leukocyte Esterase,Urine Negative (Negative); Lymphocytes % 19.8 % (10-50); Mean Corpuscular HGB Conc 32.9 g/dL (31.8-35.4); Mean Corpuscular Hemoglobin 31.8 pg (27.0-31.2); Mean Corpuscular Volume 96.4 fl (80-94); Mean Platelet Volume 8.3 fl (7.4-10.4); Monocytes # 0.5 K/mm3 (0.1-1.0); Monocytes % 5.1 % (1.7-9.3); Neutrophils # 7.3 K/mm3 (1.8-7.8); Neutrophils % 71.3 % (37.0-80.0); Nitrate,Urine Negative (Negative); Platelet Count 265 K/mm3 (142-424); Protein,Urine 2+ (Negative); Red Blood Count 4.21 M/mm3 (4.60-6.20); Red Cell Distribution Width 12.8 % (11.5-17.5); Urobilinogen,Urine 0.2 EU/dl (0.2); White Blood Count 10.2 K/mm3 (4.8-10.8)
[2020-12-31 13:43] LABS: RBC,Urine 20-50 #/hpf (0-3); Squamous Epithelial Cell,Urine Occasional #/hpf (0-5)
[2020-12-31 13:47] LABS: Creatinine,Urine Random 58 mg/dL (Not Estab.)
[2020-12-31 14:16] LABS: Albumin Level 2.9 g/dl (3.5-5.0)
[2020-12-31 14:18] LABS: Blood Urea Nitrogen 51 mg/dl (9-20); Estimated Glomerular Filt Rate 26 ml/min (>60); GFR (African American) 31 ML/MIN (>60)
[2020-12-31 14:19] LABS: Calcium 8.3 mg/dl (8.4-10.2); Glucose 96 mg/dl (74-100); Phosphorous 3.8 mg/dl (2.5-4.5)
[2020-12-31 21:40] LABS: Anion Gap 11.3 mEq/L (5-15); Carbon Dioxide 25 mmol/L (22.0-30.0); Chloride 107 mmol/L (98-107); Potassium 4.3 mmoL/L (3.5-5.1); Sodium 139 mmol/L (136-145)
== END ==
PROVIDERS: Visit Provider Internal Medicine
DX: N18.32 Chronic kidney disease, stage 3b (principal)
CPT/HCPCS: 36415; 80069; 81001; 82570; 84155; 85025

== ENCOUNTER 2021-03-20 12:42 | Emergency (ER) | payer BC, SELFPAY ==
[2021-03-20 12:45] VITALS: BP 166/96; PULSE 98; RESP 18; TEMP 36.7; O2SAT 96; BMI 38.2
--- NOTE | 2021-03-20 13:34 | HMH.EDUTC ---
[facility] [place] Disposition Clinical Impression: Bronchitis Sinusitis Qualifiers: Sinusitis location: unspecified location Chronicity: acute Recurrence: non-recurrent Qualified Code(s): J01.90 - Acute sinusitis, unspecified Pharyngitis Qualifiers: Pharyngitis/tonsillitis etiology: unspecified etiology Qualified Code(s): J02.9 - Acute pharyngitis, unspecified Disposition: Home, Self-Care Condition on Discharge: Good Instructions: DI for Pharyngitis/Tonsillopharyngitis -- Adult, DI for Sinusitis Additional Instructions: Drink plenty of fluids. Take tylenol or ibuprofen for pain or fever. Take the medications as directed. Follow up with your regular doctor. GO TO THE ER FOR ANY WORSENING SYMPTOMS Prescriptions: Benzonatate [Benzonatate 100mg cap] 100 mg PO TIDP PRN #30 cap PRN Reason: Cough [id number] methylPREDNISolone [Medrol] 4 mg PO DIRECTED 6 Days #21 packet Transmission Status: [id number] guaiFENesin [Mucinex 600mg tablet] 1 - 2 tab PO BIDP PRN #30 tab PRN Reason: Congestion Transmission Status: [facility] Azithromycin [Z-Geronimo 250mg Tab*] 250 mg PO UD DOSE PK #6 tab Transmission Status: Received by [facility] Referrals: Richardson Melgoza MD [Primary Care Provider] - Forms: Work/School Release Time of Disposition: 14:04 Medical Decision Making - Medical Records Medical records reviewed: No: I reviewed the patient's medical records. - Robert Inquiry Pt receiving controlled substance: No Vital Signs: 03/20/21 12:45 03/20/21 14:10 Temperature 98.1 F 98.1 F Temperature Source Oral Pulse Rate 98 H Pulse Rate [Right Brachial] 98 H Respiratory Rate 18 18 Blood Pressure 166/96 H Blood Pressure [Right Arm] 166/96 H Blood Pressure Mean [Right Arm] 119 Blood Pressure Source [Right Arm] Automatic Cuff Blood Pressure Position [Right Arm] Sitting 02 Sat by Pulse Oximetry 96 Oxygen Delivery Method Room Air - Lab Data Lab results reviewed: Yes: I reviewed the patient's lab results. Lab Results 03/20/21 13:42: Strep Scn Rapid Clinic Negative Orders (Tests/Meds): ORDERS Category Date Time Status Strep Screen Confirmation Stat Micro 03/20/21 13:42 Received [facility] [place] HPI - General Stated complaint: cough Time Seen by Provider: 03/20/21 13:34 Mode of Arrival: Ambulatory Source of Information: Patient Limitations: No Limitations Description of Symptoms (Recalled from Triage Doc. by RN): PATIENT C/O COUGH AND CONGESTION X 1 WEEK HEENT Symptoms (Recalled from RN notes): No Resp Symptoms (Recalled from RN notes): Yes Skin Symptoms (Recalled from RN notes): No MS Symptoms (Recalled from RN notes): No Functional Status (Recalled from RN notes): WNL - History of Present Illness Provider Complaint: He states that for the past 3 days he has had a sore throat and a cough. He denies any fever, but he has had some chilling. He denies any body aches. - Related Data Home Medications Medication Instructions Recorded Confirmed NIFEdipine [Procardia Xl] 60 mg PO DAILY 03/20/21 03/20/21 Torsemide [Demadex] 40 mg PO DAILY 03/20/21 03/20/21 Previous Rx's Medication Instructions Recorded Azithromycin [Z-Geronimo 250mg Tab*] 250 mg PO UD DOSE PK #6 tab 03/20/21 Benzonatate [Benzonatate 100mg 100 mg PO TIDP PRN #30 cap 03/20/21 cap] guaiFENesin [Mucinex 600mg tablet] 1 - 2 tab PO BIDP PRN #30 tab 03/20/21 methylPREDNISolone [Medrol] 4 mg PO DIRECTED 6 Days #21 03/20/21 packet Allergies Allergy/AdvReac Type Severity Reaction Status Date / Time Penicillins [PENICILLINS] Allergy Unknown Verified 08/20/20 09:36 - Worker's Comp Is this a Worker's Comp case?: No [facility] History - Hepatitis A Screen Drug use history?: No High risk sexual behaviors?: No History of sexually transmitted infection?: No Currently employed?: No Childcare worker?: No Do you have
[2021-03-20 13:49] LABS: UTC Strep Screen (Rapid) Negative (Negative)
[2021-03-20 14:10] VITALS: BP 166/96; PULSE 98; RESP 18; TEMP 36.7; O2SAT 96
== END 2021-03-20 14:11 | disposition home or self-care (01) ==
PROVIDERS: Emergency Provider Nurse Practitioner Family; PCP Family Medicine
DX: J01.90 Acute sinusitis, unspecified (principal); J20.9 Acute bronchitis, unspecified; I10 Essential (primary) hypertension; Z88.0 Allergy status to penicillin
CPT/HCPCS: 87880; 99203; C9803; G0463; U0003; U0005

== ENCOUNTER → 2021-04-09 09:40 | Outpatient (CLI) | payer BC, SELFPAY | PROVIDERS: PCP Family Medicine; Visit Provider Nurse Practitioner | DX: U07.1 COVID-19 (principal) | CPT/HCPCS: C9803; U0003; U0005 ==

== ENCOUNTER 2022-03-02 12:13 | Emergency (ER) | payer BC, SELFPAY ==
[2022-03-02 12:45] VITALS: BP 164/90; PULSE 89; RESP 19; TEMP 37; O2SAT 99; BMI 33.5
[2022-03-02 13:01] LABS: UTC Influenza A Antigen Negative (Negative)
[2022-03-02 13:02] LABS: UTC Influenza B Antigen Negative (Negative)
[2022-03-02 13:09] VITALS: BP 164/90; PULSE 89; RESP 19; TEMP 37; O2SAT 99
--- NOTE | 2022-03-02 13:11 | EXP.UTC ---
Discharge Plan Disposition Patient Disposition: Home, Self-Care Condition: Good Prescriptions Prescriptions: New azithromycin [Zithromax Z-Geronimo] 250 mg tablet See Rx Instructions .ROUTE .COMPLEX 5 Days Qty: 6 0RF Rx Instructions: For 250 mg dose pack: take 500 mg today (day 1), then 250 mg for 4 days (days 2-5) prednisone [prednisone] 20 mg tablet 20 mg PO BID 5 Days Qty: 10 0RF guaifenesin [Mucinex] 600 mg tablet extended release 12hr 600 mg PO BID PRN (Reason: cough) Qty: 20 0RF No Action torsemide 20 MG tablet 40 mg PO DAILY nifedipine 60 MG tablet extended release 24hr 60 mg PO DAILY azithromycin 250 MG tablet 250 mg PO UD DOSE PK Qty: 6 0RF Rx Instructions: Take two (2) tablets today, then one (1) tablet days #2 thru #5 benzonatate 100 MG capsule 100 mg PO TIDP PRN (Reason: Cough) Qty: 30 0RF methylprednisolone 4 MG tablets,dose pack 4 mg PO DIRECTED 6 Days Qty: 21 0RF guaifenesin 600 MG tablet extended release 12hr 1 - 2 tab PO BIDP PRN (Reason: Congestion) Qty: 30 0RF Referrals Follow up/Referrals: Richardson Melgoza MD [Primary Care Provider] - See instructions Activity Restrictions/Add. Instructions Additional Instructions/Restrictions: *Monitor Temp, Over the counter Motrin or Tylenol as directed/as needed Tylenol every 4 hours and Motrin every 6 hours (as long as your family doctor has told you that you can take it) for fever or pain. and straight to ER if unable to lower temp less than 101.0 after medication given *Warm salt water gargles may help to soothe the throat *Throat Lozenges? *Warm fluids like tea with honey may help to soothe the throat? *Sleep elevated *Humidifier/Vaporizer *Bromfed may cause drowsiness. Know how it effects you (your child) before driving, caring for small child, or sending your child to school. Not other antihistamines/allergy medications while taking bromfed Your throat swab was sent for culture. Those results are typically sent to your primary care. Be sure to follow up in 2-3 days with your family doctor/primary care physician if no improvement so they can review those result and treat if necessary. If you don?t have a primary care doctor, I recommend you get one but in the mean time, you will have to return to a walk in clinic Follow up IMMEDIATELY for new or worsening symptoms or no Noticeable improvement over the next 48-72 hours. 911 for difficulty breathing or swallowing Clinical Impressions Clinical Impression: Sinusitis Stand Alone Forms Stand Alone Forms: Work/School Release Instructions Patient Instructions: DI for Sinusitis, Sinusitis Discharge ED Provider: Ashanti Reich [facility] [place] HPI General Stated complaint: Cough, AHMADI, Drainage, Vomitting, BA Mode of Arrival: Ambulatory Source of Information: Patient Limitations: No Limitations Time Seen by Provider: 03/02/22 13:11 Description of Symptoms (Recalled from Triage Doc. by RN): PATIENT C/O SCRATCHY VOICE, COUGH, SINUS PRESSURE AND BODY ACHES HEENT Symptoms (Recalled from RN notes): Yes Resp Symptoms (Recalled from RN notes): Yes Skin Symptoms (Recalled from RN notes): No MS Symptoms (Recalled from RN notes): No Functional Status (Recalled from RN notes): WNL History of Present Illness Provider Complaint: Patient states that he has been sick for about a week States that he has been having sore scratchy throat, sinus pain and pressure, cough, and now lost his voice State that today the pressure behind his eyes was getting worse so he came in to get checked Related Data Home Medications Medication Instructions Recorded Confirmed nifedipine 60 mg tablet,extended 60 mg PO DAILY Hypertension 03/20/21 03/20/21 release 24 hr torsemide 20 mg tablet 40 mg PO DAILY KIDNEY DISEASE 03/20/21 03/20/21 Previous Rx's Medication Instructions Recorded azithromycin 250 mg tablet 250 mg PO UD DOSE PK #6 tabs 03/20/21 benzonat
== END 2022-03-02 13:29 | disposition home or self-care (01) ==
PROVIDERS: Emergency Provider Nurse Practitioner; PCP Family Medicine
DX: J02.9 Acute pharyngitis, unspecified (principal); H57.10 Ocular pain, unspecified eye; M79.10 Myalgia, unspecified site; R05.9 Cough, unspecified; R51.9 Headache, unspecified; R11.10 Vomiting, unspecified; Z79.52 Long term (current) use of systemic steroids; Z79.899 Other long term (current) drug therapy; Z88.0 Allergy status to penicillin
CPT/HCPCS: 87804; 99213; G0463

== ENCOUNTER 2024-01-15 00:30 | Emergency (ER) | payer BC, SELFPAY ==
[2024-01-15 00:32] VITALS: BP 159/92; PULSE 95; RESP 19; TEMP 37.1; O2SAT 98; BMI 36.0
--- NOTE | 2024-01-15 01:11 | CT_ITS ---
PROCEDURE INFORMATION: Exam: CT Head Without Contrast Exam date and time: 01/15/2024 1:16 AM Age: 28 years old Clinical indication: Injury or trauma; Other: Hit with a baseball; Blunt trauma (contusions or hematomas); Additional info: L scalp hematoma from baseball hit, heparin use TECHNIQUE: Imaging protocol: Computed tomography of the head without contrast. Radiation optimization: All CT scans at this facility use at least one of these dose optimization techniques: automated exposure control; mA and/or kV adjustment per patient size (includes targeted exams where dose is matched to clinical indication); or iterative reconstruction. COMPARISON: No relevant prior studies available. FINDINGS: Brain: Normal. No hemorrhage. Unremarkable white matter. No mass effect. Cerebral ventricles: No ventriculomegaly. Paranasal sinuses: Visualized sinuses are unremarkable. No fluid levels. Mastoid air cells: Visualized mastoid air cells are well aerated. Bones: Unremarkable. No acute fracture. Soft tissues: Unremarkable. IMPRESSION: No acute intracranial abnormality.
[2024-01-15 02:03] VITALS: BP 152/108; PULSE 96; RESP 15; TEMP 36.9; O2SAT 97
--- NOTE | 2024-01-15 03:10 | ED_ITS ---
Discharge Plan Disposition Patient Disposition: Home, Self-Care Condition: Good Prescriptions Prescriptions: No Action torsemide 20 MG tablet 40 mg PO DAILY nifedipine 60 MG tablet extended release 24hr 60 mg PO DAILY azithromycin 250 MG tablet 250 mg PO UD DOSE PK Qty: 6 0RF Rx Instructions: Take two (2) tablets today, then one (1) tablet days #2 thru #5 benzonatate 100 MG capsule 100 mg PO TIDP PRN (Reason: Cough) Qty: 30 0RF methylprednisolone 4 MG tablets,dose pack 4 mg PO DIRECTED 6 Days Qty: 21 0RF guaifenesin 600 MG tablet extended release 12hr 1 - 2 tab PO BIDP PRN (Reason: Congestion) Qty: 30 0RF azithromycin [Zithromax Z-Geronimo] 250 mg tablet See Rx Instructions .ROUTE .COMPLEX 5 Days Qty: 6 0RF Rx Instructions: For 250 mg dose pack: take 500 mg today (day 1), then 250 mg for 4 days (days 2-5) prednisone [prednisone] 20 mg tablet 20 mg PO BID 5 Days Qty: 10 0RF guaifenesin [Mucinex] 600 mg tablet extended release 12hr 600 mg PO BID PRN (Reason: cough) Qty: 20 0RF Referrals Follow up/Referrals: Richardson Melgoza MD [Primary Care Provider] - See instructions Activity Restrictions/Add. Instructions Additional Instructions/Restrictions: You were evaluated in the ER and are appropriate for discharge at this time. Continue taking home medications as prescribed. Follow-up with all scheduled appointments. Make an appoint with your primary care doctor for reevaluation in 2 to 3 days. Return to the ER with new, worsening, or otherwise concerning symptoms. Clinical Impressions Clinical Impression: Hematoma of left parietal scalp Print Language Print Language: Egyptian Discharge ED Provider: Ese Rodriguez General Adult HPI General Chief complaint: Head Injury Stated complaint: AO 2330 head injury Time Seen by Provider: 01/15/24 00:54 Mode of Arrival: Ambulatory Source of Information: Patient Limitations: No Limitations Description of Symptoms (Recalled from ER Triage Doc. by RN): 28 M presents after being hit in the back of the head with a baseball approximately 1 hour [employer]. Patient denies LOC or blood thinners daily. Patient does take dialysis 3 days per week and they give him heparin during those sessions. History of Present Illness HPI narrative: 28-year-old male presents to the ER after being struck in the left side of the head with a baseball approximately 1 hour prior to arrival. Patient denies loss of consciousness, he does not take daily blood thinners but is on dialysis 3 days weekly including yesterday and states he received heparin during those sessions. Patient states he did not want to come to the ER but his friends encouraged him to do so. He has no pain, dizziness, numbness, tingling, weakness, nausea, vomiting, or other associated symptoms. No other injuries. ROS otherwise negative Related Data Home Medications ?Medication ?Instructions ?Recorded ?Confirmed nifedipine 60 mg tablet,extended 60 mg PO DAILY Hypertension 03/20/21 03/20/21 release 24 hr torsemide 20 mg tablet 40 mg PO DAILY KIDNEY DISEASE 03/20/21 03/20/21 Previous Rx's ?Medication ?Instructions ?Recorded azithromycin 250 mg tablet 250 mg PO UD DOSE PK #6 tabs 03/20/21 benzonatate 100 mg capsule 100 mg PO TIDP PRN Cough #30 caps 03/20/21 guaifenesin 600 mg tablet, 1 - 2 tab PO BIDP PRN Congestion 03/20/21 extended release 12 hr #30 tabs methylprednisolone 4 mg tablets in 4 mg PO DIRECTED 6 days #21 03/20/21 a dose pack packets azithromycin 250 mg tablet See Rx Instructions PO .COMPLEX 5 03/02/22 (Zithromax Z-Geronimo) days #6 tabs guaifenesin 600 mg tablet, 600 mg PO BID PRN cough #20 tabs 03/02/22 extended release 12 hr (Mucinex) prednisone 20 mg tablet 20 mg PO BID 5 days #10 tabs 03/02/22 Allergies Allergy/AdvReac Type Severity Reaction Status Date / Time Penicillins [PENICILLINS] Allergy Unknown Verified 08/20/20 09:36 [facility] Disclaimer: The information contained in this section may have been updated after the patient was seen, as this information can be updated by other users. Medical History (Updated 01/15/24 @ 01:58 by Ese Rodriguez MD) Hypertension Social History (Updated 03/02/22 @ 12:55 by Agnes Ramirez RN) Smoking Status: Never smoker second hand exposure: No (dips one can a day) alcohol intake: never substance use type: denies use current occupational status: other Travel in the last 8 weeks: None caffeine: Yes Other Medical History Have you received the Flu Vaccine for this season: No Have you received the Pneumonia Vaccine: No ROS Obtained: Yes All systems reviewed & no additional complaints except as documented Positive ROS per HPI Physical Exam General General appearance: alert and in no apparent distress Head Head exam: normocephalic and other (5 cm diameter scalp hematoma on the left posterior parietal region of the scalp without laceration. No underlying skull deformity appreciated) Eye Eye exam: Present PERRL and EOMI ENT ENT exam: Present mucous membranes moist Neck Neck exam: Present normal inspection and full ROM Chest Chest inspection: Present symmetric chest wall rise Respiratory Respiratory exam: Absent respiratory distress or stridor Cardiovascular Cardiovascular exam: Present regular rate and normal rhythm Extremities Exam Extremities exam: Present full ROM and other (Left upper extremity fistula with good thrill); Absent edema Neurological Exam Neurological exam: Present alert, oriented X3, CN II-XII intact and normal gait; Absent motor sensory deficit Psychiatric Psychiatric exam: Present normal affect and normal mood Skin Skin exam: Present warm and dry Medical Decision Making Medical Records Screening: Per USPSTF and CDC recommendations, given the prevalence of disease in our region, it is our hospital?s policy to screen for HIV and viral Hepatitis for all patients aged 18 and over and those with ongoing risk factors. Robert Inquiry Pt receiving controlled substance: No Vital Signs: 01/15/24 00:32 01/15/24 02:03 Temperature 98.7 F 98.5 F Temperature Source Oral Oral Pulse Rate 96 H Pulse Rate [Left] 95 H Respiratory Rate 19 15 Blood Pressure 152/108 H Blood Pressure [Right Arm] 159/92 H Blood Pressure Mean [Right Arm] 114 Blood Pressure Source Automatic Cuff Blood Pressure Source [Right Arm] Automatic Cuff Blood Pressure Position Sitting Blood Pressure Position [Right Arm] Sitting 02 Sat by Pulse Oximetry 98 Oxygen Delivery Method Room Air Room Air Orders (Tests/Meds): ORDERS Category Date Time Status CT head/brain wo con Stat Cat Scan 01/15/24 01:11 Completed Medical Decision Narrative: In summary, this 28-year-old male with comorbidities including ESRD on dialysis who receives occasional heparin presents to the emergency department today after being struck in the left side of the head with a softball. On initial evaluation patient is hemodynamically stable, afebrile, GCS 15, no focal neurologic defic its, no findings of skull fracture on exam, no other injuries appreciated remainder of exam benign. Differential diagnosis includes but is not limited to skull fracture, intracranial bleed, hematoma. Based on these concerns, I ordered CT imaging of the head. CT imaging personally interpreted does not demonstrate acute intracranial abnormality, no findings of skull fracture. See radiology read for final interpretation. On reassessment patient continues to be stable with no neurologic deficits. Hematoma is unchanged. He is appropriate for discharge at this time. Patient was given instructions on symptomatic management, follow up instructions, and return precautions for the emergency department. Patient indicated understanding and was discharged in stable condition. Critical Care Critical Care Time Critical Care Time: No
== END 2024-01-15 02:04 | disposition home or self-care (01) ==
PROVIDERS: Emergency Provider Emergency Medicine; PCP Family Medicine
DX: S00.03XA Contusion of scalp, initial encounter (principal); S09.90XA Unspecified injury of head, initial encounter; W21.03XA Struck by baseball, initial encounter; Y93.9 Activity, unspecified; Y92.9 Unspecified place or not applicable
CPT/HCPCS: 70450; 99284

== ENCOUNTER 2025-02-12 09:49 | Outpatient (CLI) | payer OTHER, SELFPAY ==
--- OUTSIDE RECORDS SUMMARY | 2025-02-12 09:56 | XMS_ITS ---
Author Organization [facility] Address [address] [place] [address] Care Team Providers Care Behavioral Science Chair Name Role Phone Richardson Melgoza MD Primary Care Provider [phone] Transplant Episode Kidney Candidate [facility] ([place] [facility] [place] 12/05/2023 Marked as Active on 09/26/2024 Kidney CoordinatorLior Marquez RN Phone: N/A Fax: N/A Email: N/A Scores Score Value Updated Exceptions/Reas ons CPRA 50 09/21/2024 EPTS (Calc) 4 02/12/2025 [place] Organ Diagnosis Organ Primary Contributory Kidney IgA Nephropathy Care Team Name Role Phone Fax Email Lior Marquez RN Kidney Coordinator N/A N/A N/A Aman Potter MD Referring Physician [phone] N/A Events Pre-Transplant Referred: 03/14/2023 Evaluation began: 06/22/2023 Committee: 11/21/2023 UNOS qualified: 12/04/2022 Center waitlisted: 12/05/2023 Dialysis History Dialysis History Start End Type Comments Center 12/04/2022 Hemo MWF; [facility] D[facility] Center Information Center Phone Fax Address [facility] [phone] [place] [id number]
--- OUTSIDE RECORDS SUMMARY | 2025-02-12 09:56 | XMS_ITS | Clinical Summary ---
Author Organization [facility] Address [address] [place] [address] Care Team Providers Care Supervisor Parking Lot Name Role Phone Richardson Melgoza MD Primary Care Provider + [phone] Aman Potter MD Unavailable Allergies Active Allergy Reactions Criticality Noted Date Comments Penicillins Hives Medium 08/03/2018 Developed hives as a baby. Has tolerated oral cephalosporins. Medications sevelamer carbonate (Renvela) 800 MG tablet Take 2 tablets (1,600 mg) by mouth 3 (three) times a day with meals. Swallow tablet whole; do not crush, break, or chew. 180 tablet 11 4 Active Tenapanor HCl, CKD, 30 MG tablet Take 30 mg by mouth 2 (two) times a day. 60 tablet 5 4 Active Additional Information Patient not taking.Reason: Not available (Has not started yet), Reported on 03/22/2024 acetaminophen (Tylenol) 500 MG tablet Take 1 tablet (500 mg) by mouth every 6 (six) hours if needed. Active B Yluhlot-L-Sfasi Acid (Cynthia-Audie) tablet Take 0.8 mg by mouth daily. 90 tablet 3 5 12/13/19 26 Active torsemide (Demadex) 100 MG tablet Take 1 tablet by mouth daily. 90 tablet 3 5 12/13/19 26 Active NIFEdipine CC (Adalat CC) 60 MG 24 hr tablet Take 1 tablet by mouth daily. Do not crush, chew, or split. 90 tablet 3 5 12/13/19 Active olmesartan (BENIcar) 40 MG tablet Take 1 tablet by mouth daily. 90 tablet 3 5 12/13/19 Active Active Problems Problem Noted Date Diagnosed Date Obesity (BMI 35.0-39.9 without comorbidity) 02/09 ESRD needing dialysis 01/10/2023 Complications due to vascular device, implant, a nd graft 01/10/2023 CKD (chronic kidney disease) stage 5, GFR less than 15 ml/min 11/26/2022 Renal failure 12/18/2020 IgA nephropathy 12/04/2020 Essential hypertension 12/04/2020 Chronic kidney disease-mineral and bone disorder 12/04/2020 Persistent proteinuria 12/04/2020 Encounters Date Type Department Care Team Description 12/12/2024 Orders Only [facility] [address] [place] [address] Becky Coleman PA from Last 3 Months Immunizations Immunization Administration Dates Next Due Influenza, injectable, quadrivalent, preservativ e free 08/09/2018 Family History Medical History Relation Name Comments Alcohol abuse Father Hypertension Father Kidney disease Father IgAN (IgA nep hropathy) IgA nephropathy Father's Brother IgA nephropathy Father's Sister Anesthesia problems Neg Hx Malig Hyperthermia Neg Hx Relation Name Status Comments Father Father's Brother Alive Father's Sister Alive Social History Tobacco Use Types Packs/Day Years Used Date Smoking Tobacco: Never Passive Smoke Exposure: Never Smokeless Tobacco: Current Chew Tobacco Cessation:Ready to Q uit: Not Asked; Counseling Given: Not Answered Alcohol Use Standard Drinks/Week Comments Not Currently 0 (1 standard drink = 0.6 oz pur e alcohol) PHQ-2 Answer Date Recorded Patient Health Questionnaire-2 Score 0 02/23/2024 PHQ-2A Answer Date Recorded Patient Health Questionnaire-2 Score 0 01/10/2023 Education Answer Date Recorded What is the highest level of school you have completed or the highest degree you have received? 12th grade 01/03/2023 Sex and Gender Information Value Date Recorded Sex Assigned at Not on file Legal Sex Male 6:27 PM EDT Gender Identity Not on file Sexual Orientation Not on file Last Filed Vital Signs Vital Sign Reading Time Taken Comments Blood Pressure 159/117 06/12/2024 8:47 AM EST Pulse 71 06/12/2024 8:47 AM EST Temperature 36.3 C (97.4 F) 06/12/2024 6:17 AM EST Respiratory Rate 13 06/12/2024 8:47 AM EST Oxygen Saturation 98% 06/12/2024 8:47 AM EST Inhaled Oxygen Concentration - - Weight 126 kg (277 lb 12.5 oz) 06/12/2024 6:17 A M EST Height 182.9 cm (6') 06/12/2024 6:17 AM EST Body Mass Index 37.67 06/12/2024 6:17 AM EST Plan of Treatment Health Maintenance Due Date Last Done Comments [facility]-Infant/Child/Adol SDOH Screenings 1996 [facility]-Varicella Vaccines (1 of 2 - 13+ 2-dose series) 2009 [facility]- SDOH Screenings 2014 [facility]-Adult SDOH Screenings 2014 [facility]-Pneumococcal Vaccine: Pediatrics (0 to 5 Years) and At-Risk Patients (6 to 49 Years) (1 of 2 - PCV) 08/15/2015 [facility]-Hepatitis B Vaccines (1 of 3 - Risk Dialysis 4-dose series) 2016 HPV Vaccines (1 - 3-dose SCDM series) 08/15/2023 [id number]-49 Vaccine (1 - season) 2024 [facility]-Influenza Vaccine (#1) 2024 08/09/2018 [facility]-Depression Screening 02/22/2025 02/23/2024 [facility]-DTaP,Tdap,and Td Vaccines (3 - Td or Tdap) 08/08/2030 08/08/2020, 09/15/2007 [facility]-Zoster Vaccines (1 of 2) 2046 [facility]-Hepatitis C Screening Completed 2023, 08/03/2018, 08/03/2018 [facility]-Obesity Intervention Completed 025, 02/23/2024, 02/23/2024, Additional history exists [facility]-HIV Screening Completed 07/24/2024, , 06/22/2023, Additional history exists [facility]-HIB Vaccines Aged Out No longer e ligible based on patient's age to complete this topic [facility]-Hepatitis A Vaccines Aged Out No longer eligible based on patient's age to complete this topic [facility]-IPV Vaccines Aged Out No longer e ligible based on patient's age to complete this topic [facility]-Rotavirus Vaccines Aged Out No lo nger eligible based on patient's age to complete this topic Procedures Procedure Name Priority Date/Time Associated Diagnosis Comments HEPATITIS C ANTIBODY W/REFLEX TO HCV QUANT PCR Routine 02/23/2024 7:19 AM EST End stage renal disease (CMS/HCC) HIV 1/2 ANTIBODY/ANTIGEN SCREEN WITH REFLEX TO HIV I/II DIFFERENTIATION Routine 02/23/2024 7:19 AM EST Pre-transplant evaluation for kidney transplant from Last 3 Months or Most Recently Relevant to Health Maintenance Results * HIV 1 & 2 Antibody/Antigen Screen (02/23/2024 7:19 AM EST) HIV 1 & 2 Antibody/Antigen Screen Non Reactive Non Reactive 02/23/2024 8:28 AM EST [facility] Comment:Screening for HIV 1 & 2 antibodies, and P24 antigen is NONREACTIVE. No confirmatory testing is required. Blood Venous blood specimen / Unknown Venipuncture / Unknown 02/23/2024 7:19 AM EST 02/23/2024 7:40 AM EST us Fide Anthony MD LAB BLOOD ORDERABLES Final Resul t [facility] [address] [place] [address] * Hepatitis C antibody (02/23/2024 7:19 AM EST) Hepatitis C Antibody Negative Negative 02/23/2024 8:28 AM EST [facility] Blood Venous blood specimen / Unknown Venipuncture / Unknown 02/23/2024 7:19 AM EST 02/23/2024 7:41 AM EST us Fide Anthony MD LAB BLOOD ORDERABLES Final Resul t [facility] [address] [place] [address] from Last 3 Months or Most Recently Relevant to Health Maintenance Insurance [facility] [place] [address] [place] [address] [employer] Advance Directives * Full Code (Latest Code Status on File) Date Activated Date Inactivated Comments 12/20/2020 11:54 AM 12/20/2020 6:31 PM Question Answer Comments Patient has decision-making capacity? Yes * Full Code Date Activated Date Inactivated Comments 12/18/2020 3:50 PM 12/19/2020 3:03 PM Question Answer Comments Patient has decision-making capacity? Yes Care Teams Supervisor Parking Lot Relationship Specialty Start Date End Date Richardson Melgoza MD [address] [facility] [address] [place] [address] PCP - General 08/22/20 Aman Potter MD [address] [place] [id number] Referring Physician Nephrology 12/10/22
--- OUTSIDE RECORDS SUMMARY | 2025-02-12 09:56 | XMS_ITS | Clinical Summary ---
Author Organization [facility] Address [address] [place] [address] Phone [email or web address] Care Team Providers Care Research Associate Policy Name Role Phone Unavailable Primary Care Provider Unavailabl e Allergies Active Allergy Reactions Criticality Noted Date Comments Penicillins Hives Medium 08/03/2018 Medications NIFEdipine CC (ADALAT CC) 60 MG 24 hr tablet 12/20/2020 Active torsemide (DEMADEX) 20 MG tablet 01/01/2021 Active Active Problems No known active problems Social History Tobacco Use Types Packs/Day Years Used Date Smoking Tobacco: Never Smokeless Tobacco: Current Chew Intimate Partner Violence Answer Date R ecorded Insults You Not on file 07/22/2020 Threatens You Not on file 07/22/2020 Screams at You Not on file 07/22/2020 Physically Hurt Not on file 07/22/2020 Intimate Partner Violence Score Not on file 07/22/2020 Stress Answer Date Recorded Stress in your Life 0 05/23/2020 Dealing with Stress Not on file 05/23/2020 Sex and Gender Information Value Date Recorded Sex Assigned at Not on file Legal Sex Male 8:21 AM CDT Gender Identity Not on file Sexual Orientation Not on file Last Filed Vital Signs Vital Sign Reading Time Taken Comments Blood Pressure 138/90 03/03/2021 4:01 PM EST Pulse 84 03/03/2021 4:01 PM EST Temperature 36.8 C (98.2 F) 03/03/2021 4:01 PM EST Respiratory Rate - - Oxygen Saturation 98% 03/03/2021 4:01 PM EST Inhaled Oxygen Concentration - - Weight 132 kg (291 lb 12.8 oz) 03/03/2021 4:01 P M EST Height 182.9 cm (6') 03/03/2021 4:01 PM EST Body Mass Index 39.58 03/03/2021 4:01 PM EST Plan of Treatment Health Maintenance Due Date Last Done Comments Dental Cleaning/Exam 1996 HPV Immunization (1 - Male 3 -dose series) 08/15/2011 Hepatitis B Immunization (1 of 3 - 19+ 3-dose series) 08/15/2015 Tetanus Diphtheria and Pertu ssis Immunization (1 - Tdap) 08/15/2015 Covid-19 Immunization (1 - 2 season) 2024 Influenza Immunization (#1) 2024 HIB Immunization Aged Out No longer e ligible based on patient's age to complete this topic Hepatitis A Immunization Aged Out No longer eligible based on patient's age to complete this topic Pneumococcal Immunization Aged Out No longer eligible based on patient's age to complete this topic Polio Immunization Aged Out No longer eligible based on patient's age to complete this topic Varicella Immunization Aged Out No lo nger eligible based on patient's age to complete this topic
--- OUTSIDE RECORDS SUMMARY | 2025-02-12 09:56 | XMS_ITS | Patient Health Record ---
Author [facility] Address [address] [place] [id number] Care Team Providers Care Services Manager Name Role Phone Damien Ruiz Primary Care Provider Allergies Allergen (clinical drug ingredient) Drug/Non Drug Allergy documented on EMR Reaction Allergy Type Onset Date Status Substance with penicillin structure and antibacterial mechanism of action (substance) Penicillins Unknown Drug Allergy Active Medications Medication SIG (Take, Route, Frequency, Duration) Notes Start Date End Date Status Olmesartan Medoxomil 40 MG 1 tablet Oral ly Once a day; Duration: 30 day(s) Active Torsemide 100 MG 1 tablet Orally Once a day; Duration: 30 day(s) Active NIFEdipine ER 60 MG 1 tablet on an empty stomach Orally Once a day; Duration: 30 day(s) 11/10/2022 Active Immunizations Vaccine Route Administration Date Status Comme nts Tetanus Tdap-Adacel (over 7yrs) IM Intramuscular 09/15/2007 Administered MENINGOCOCCAL VACCINE, SC IM Intramuscular 09/15/2007 Admi nistered Fluzone PF Quad (6-35 months) Unknown 08/09/2018 Administered Problems Problem Type SNOMED Code ICD Code Onset Dates Problem Status W/U Status Risk Notes Problem End stage renal disease (35499675) End stage renal disease (N18.6) Active confirmed Problem Migraine without aura, not refractory (634181161) Migraine without aura and without status migrainosus, not intractable (G43.009) Active confirmed Problem Chronic renal failure syndrome (71521393) Chronic renal impairment, unspecified CKD stage (N18.9) Active confirmed Problem Essential hypertension (70705654) Hypertension, unspecified type (I10) Active confirmed Plan Of Treatment No Information Insurance Providers Payer Name Payer Address Payer Phone Subscriber Number Group Number Insured Name Patient Relationship to Insured Coverage Start Date Coverage End Date VANESSA ALVAREZ [address] [place] [address] [id number] EMIL HORTA Self - patient is the insured Medications Administered Medication Instructions Date of Administration Dosage Notes Gio 08/03/2018 4 mg Medical (General) History Medical History History ICD Code Chronic Kidney Disease, S/P Renal Biopsy , [facility] at [facility] IgA Nephropathy dialysis, started November 2022 Surgical History Surgery Date(Month/Year) LT Kidney Biopsy 08/2018 Hospitalization History Reason Date(Month/Year) Bee Sting- [facility] ER 11/2010 Cough, SOA- [facility] ER 02/23/2015 LT Index Finger Laceration- [facility] ER 03/22 Strep Throat- [facility] ER 09/2016 - Kidney Disease- 08/03-08/10/2018
--- OUTSIDE RECORDS SUMMARY | 2025-02-12 09:57 | XMS_ITS | Encounter Summary ---
Author Organization [facility] Address [address] [place] [address] Care Team Providers Care Fitter/Welder Name Role Phone Richardson Melgoza MD Primary Care Provider + [phone] Source Comments This information has been disclosed to you from confidential records protectfrom disclosure by state law. You shall make no further disclosure of thisinformation without the specific, written, and informed release of theindividual to whom it pertains, or as otherwise permitted by law. A generalauthorization for the release of medical or other information is not sufficientfor the purposes of the release of HIV test results or diagnoses. [id number] Health Encounter Details Date Type Department Care Team (Late st Contact Info) Description 02/01/2025 Orders Only [facility] [address] [place] [address] Clif Cunningham MD [address] [facility] [address] [place] [address] Social History Tobacco Use Types Packs/Day Years Used Date Smoking Tobacco: Never Smokeless Tobacco: Current Chew Alcohol Use Standard Drinks/Week Comments Not Currently 0 (1 standard drink = 0.6 oz pur e alcohol) PHQ-2 Answer Date Recorded PHQ-2 Total Score 1 06/22/2023 Sex and Gender Information Value Date Recorded Sex Assigned at Not on file Legal Sex Male 1:01 PM EST Gender Identity Not on file Sexual Orientation Not on file documented as of this encounter Plan of Treatment Not on file documented as of this encounter Procedures Procedure Name Priority Date/Time Associated Diagnosis Comments HOX - HLA ANTIBODY-DETAILED REPORT Routine 02/01/2025 1:43 PM EDT documented in this encounter Results * [facility] - HLA Antibody-Detailed Report (02/01/2025 1:43 PM EDT) 02/01/2025 1:43 PM EDT us Clif Marisa VINES LAB BLOOD ORDERABLES Final Resul t [facility] [address] [place] [address] documented in this encounter Visit Diagnoses Not on filedocumented in this encounter Additional Health Concerns Assessment Noted Time PHQ-9 Depression Total Score: 7 06/22/19 24 1:00 PM EDT documented as of this encounter Care Teams Fitter/Welder Relationship Specialty Start Date End Date Richardson Melgoza MD [address] [place] [address] [place] [address] PCP - General Family Medicine 08/10/23 documented as of this encounter
--- OUTSIDE RECORDS SUMMARY | 2025-02-12 09:57 | XMS_ITS | Clinical Summary ---
Author Organization [facility] Address [address] [place] [address] Care Team Providers Care Solvent Station Attendant Name Role Phone Richardson Melgoza MD Primary Care Provider + [phone] Source Comments This information has been disclosed to you from confidential records protectedfrom disclosure by state law. You shall make no further disclosure of thisinformation without the specific, written, and informed release of theindividual to whom it pertains, or as otherwise permitted by law. A generalauthorization for the release of medical or other information is not sufficientfor the purposes of therelease of HIV test results or diagnoses. [id number] Health Allergies Active Allergy Reactions Criticality Noted Date Comments Penicillin G Hives 06/22/2023 Medications benzonatate (TESSALON) 200 MG capsule Take by mouth 3 times a day as needed. Take 1 capsule (200 mg) by mouth 3 (three) times a day if needed for cough. Do not crush or chew. Active chlorhexidine (PERIDEX) 0.12 % solution RINSE WITH 15ML FOR 30 SECONDS AND SPIT, USE TWICE DAILY 08/15/2023 Active sevelamer carbonate (RENVELA) 800 mg tablet TAKE 1 TABLET BY MOUTH WITH MEALS DAILY ( 3 TIMES DAILY ) 03/29/2023 Active torsemide (DEMADEX) 100 MG tablet Take by mouth. Take 1 tablet (100 mg) by mouth 1 (one) time each day. Active Active Problems Problem Noted Date Diagnosed Date CHF (congestive heart failure) 06/20/2023 ESRD (end stage renal disease) 06/20/2023 Hematuria 06/20/2023 HTN (hypertension) 06/20/2023 IgA nephropathy 06/20/2023 Encounters Date Type Department Care Team Description 02/01/2025 Orders Only [facility] Pancreas Transplant at Outpatient [address] [address] Clif Cunningham MD 12/07/2024 Orders Only [facility] Pancreas Transplant at Outpatient [address] [address] Clif Cunningham MD from Last 3 Months Social History Tobacco Use Types Packs/Day Years Used Date Smoking Tobacco: Never Smokeless Tobacco: Current Chew Tobacco Cessation:Ready to Q uit: Yes; Counseling Given: Not Answered Alcohol Use Standard [...] Sign Reading Time Taken Comments Blood Pressure 138/62 08/10/2023 11:34 AM EDT Pulse 65 08/10/2023 11:34 AM EDT Temperature 36.5 C (97.7 F) 06/22/2023 12:30 PM EDT Respiratory Rate 16 08/10/2023 11:3 4 AM EDT Oxygen Saturation 100% 08/10/2023 11: 34 AM EDT Inhaled Oxygen Concentration 100% 04/2023 11:34 AM EDT Weight 117.1 kg (258 lb 3.2 oz) 024 12:30 PM EDT Height 185.4 cm (6' 1 ) 06/22/2023 12:3 0 PM EDT Body Mass Index 34.07 06/22/2023 12:30 PM EDT Plan of Treatment Health Maintenance Due Date Last Done Comments Immunization: COVID-19 (#1) 2001 Alcohol Misuse Screening 2014 Immunization: Pneumococcal (1 of 2 - PCV) 08/15/2015 Immunization: Zoster (1 of 2) 08/15/2015 Immunization: DTaP/Tdap/Td (1 - Tdap) 08/09/2020 Depression Screening 06/21/2024 06/22/2023 Immunization: Influenza (MyChart) (#1) 2024 Diabetes Screening 07/24/2025 07/24/2024, 06/22/2023 Renal Function/GFR 07/24/2025 07/24/2024, 06/22/2023 HIV Screening Completed 07/24/2024, 06/22/2023 Hepatitis C Screening (MyChart) Completed , 06/22/2023 Procedures Procedure Name Priority Date/Time Associated Diagnosis Comments HOX - HLA ANTIBODY-DETAILED REPORT Routine 02/01/2025 1:43 PM EDT HOX - HLA ANTIBODY-DETAILED REPORT Routine 12/07/2024 11:30 AM EDT HEMOGLOBIN A1C Routine 07/24/2024 11:30 AM EDT Patient on waiting list for kidney transplant ESRD (end stage renal disease) on dialysis ([facility]) Routine history and physical examination of adult HIV 1+2 ANTIBODY/ANTIGEN WITH REFLEX Routine 07/24/2024 11:30 AM EDT Patient on waiting list for kidney transplant ESRD (end stage renal disease) on dialysis ([facility]) Routine history and physical examination of adult BASIC METABOLIC PANEL Routine 07/24/2024 11:30 AM EDT Patient on waiting list for kidney transplant ESRD (end stage renal disease) on dialysis ([facility]) Routine history and physical examination of adult HEPATITIS C ANTIBODY Routine 07/24/2024 11:30 AM EDT Patient on waiting list for kidney transplant ESRD (end stage renal disease) on dialysis ([facility]) Routine history and physical examination of adult from Last 3 Months or Most Recently Relevant to Health Maintenance Results * Hox - HLA Antibody-Detailed Report (02/01/2025 1:43 PM EDT) Only the most recent of2 resultswithin the time period is included. 02/01/2025 1:43 PM EDT us Clif Marisa VINES LAB BLOOD ORDERABLES Final Resul t [facility] [address] [place] [address] * Hepatitis C antibody (07/24/2024 11:30 AM EDT) HCV Ab Nonreactive Nonreactive 07/24/2024 4:47 PM EDT [facility] Comment:Health Department no tified in accordance with reportable infectious disease guidelines. Serum 07/24/2024 11:3 0 AM EDT 07/24/2024 3:37 PM EDT [facility] - 07/24/2024 4:47 PM EDT Antibodies to HCV not detected; does not exclude the possibility of exposure to HCV. Ana Cruz [facility] BLOOD ORDERABLES Final Result [facility] [address] [facility] * HIV-1 and HIV-2 antibodies (07/24/2024 11:30 AM EDT) HIV 1+2 AB/AGN Nonreactive Nonreactive 07/24/2024 4:30 PM EDT [facility] Serum 07/24/2024 11:3 0 AM EDT 07/24/2024 3:37 PM EDT [facility] - 07/24/2024 4:30 PM EDT [facility] BLOOD ORDERABLES Final Result [facility] [address] [facility] * Hemoglobin A1c (07/24/2024 11:30 AM EDT) Hemoglobin A1C 4.9 4.0 - 5.6 % 07/24/2024 6:08 PM EDT [facility] Comment: Hemoglobin A1c Interpretation Guidelines: Normal: <5.7% Prediabetes: 5.7-6.4% Diabetes: >6.4% Diagnosis requires two independent tests unless clinical diagnosis is clear. Some clinical conditions, particularly anemias and hemoglobinopathies, may interfere with the diagnostic accuracy of hemoglobin A1c. The recommended goal for diabetic glycemic control (Hemoglobin A1c <7.0%) should be individualized based on duration of diabetes, age/life expectancy, comorbid conditions, known CVD or advanced microvascular complications, hypoglycemia unawareness, and other individual patient considerations. Whole Blood 07/24/2024 11:3 0 AM EDT 07/24/2024 4:06 PM EDT Ana Cruz [facility] BLOOD ORDERABLES Final Result [facility] [address] [facility] [place] [address], [facility] * (ABNORMAL) Basic metabolic panel (07/24/2024 11:30 AM EDT) Sodium 135 133 - 146 mmol/L 07/24/2024 4:33 PM EDT [facility] Potassium 3.5 3.5 - 5.3 mmol/L 07/24/2024 4:33 PM EDT [facility] Chloride 97(L) 98 - 110 mmol/L 07/24/2024 4:33 PM EDT [facility] CO2 21 21 - 33 mmol/L 07/24/2024 4:33 PM EDT [facility] Anion Gap 17(H) 3 - 16 mmol/L 07/24/2024 4:33 PM EDT [facility] BUN 69(H) 7 - 25 mg/dL 07/24/2024 4:33 PM EDT [facility] Creatinine 11.53(H) 0.60 - 1.30 mg/dL 07/24/2024 4:33 PM EDT [facility] Glucose 80 70 - 100 mg/dL 07/24/2024 4:33 PM EDT [facility] Calcium 9.5 8.6 - 10.3 mg/dL 07/24/2024 4:33 PM EDT [facility] Osmolality, Calculated 299 278 - 305 mOsm/kg 07/24/2024 4:33 PM EDT [facility] EGFR 6 07/24/2024 4:33 PM EDT [facility] Comment:As of 2021, the estimated GFR is calculated using the 2020 Chronic Kidney Disease Epidemiology Collaboration (CKD-EPI) equation. In line with the NKF-ASN Task Force Recommendations, this equation does not include a coefficient for race. A single eGFR value is calculated for each patient. The reference interval is >60 mL/min/1.73m2. eGFR values greater than 90 will be reported as >90mL/min/1.73m2. Reference: Luca C, Love M, Mitul DC, Macario ND, Sekou CA, Ruy LA, et al. A Unifying Approach for GFR Estimation: Recommendations of the NKF-ASN Task Force on Reassessing the inclusion of Race in Diagnosing Kidney Disease. Am J Kidney Dis. 2020. Plasma 07/24/2024 11:3 0 AM EDT 07/24/2024 4:00 PM EDT Ana Briggsman [facility] BLOOD ORDERABLES Final Result [facility] [address] [place] [address], [facility] from Last 3 Months or Most Recently Relevant to Health Maintenance Insurance [place] [id number] [address] [facility] [place] [id number] [employer] [facility] Advance Directives For more information, please contact: [phone] Documents on File Type Date Recorded Patient Salvage Diver Expl anation Durable Power of Yarn Inspector - scan 10/26/2023 12:09 PM Care Teams Solvent Station Attendant Relationship Specialty Start Date End Date Richardson Melgoza MD [address] [place] [address] PCP - General Family Medicine 08/10/23
--- OUTSIDE RECORDS SUMMARY | 2025-02-12 09:57 | XMS_ITS | Clinical Summary ---
Author Organization [facility] Address [address] [facility] [address] [place] [address] Care Team Providers Care Traffic Control Officer Name Role Phone Richardson Melgoza MD Primary Care Provider [phone] Social History Tobacco Use Types Packs/Day Years Used Date Smoking Tobacco: Never Assessed Sex and Gender Information Value Date Recorded Sex Assigned at Not on file Legal Sex Male 8:21 AM EDT Gender Identity Not on file Sexual Orientation Not on file Plan of Treatment Health Maintenance Due Date Last Done Comments Lipid Panel 1996 MMR Vaccines (1 of 1 - Standard series) 1997 Varicella Vaccines (1 of 2 - 13+ 2-dose series) 2009 Hepatitis B Screening 2014 DTaP/Tdap/Td Vaccines (1 - Tdap) 08/15/2015 Pneumococcal Vaccine (1 of 2 - PCV) 08/15/2015 Hepatitis B Vaccines (1 of 3 - Risk Dialysis 4-dose series) 2016 HPV Vaccines (1 - 3-dose SCDM series) 08/15/2023 Depression Risk Screening 04/11/2024 SDOH Screening 04/11/2024 COVID-19 Vaccine (1 - season) 2024 Influenza Vaccine (#1) 2024 08/09/2018 Diabetes Screening 07/24/2025 07/24/2024, 1 04/24/2023, 06/22/2023, Additional history exists Zoster Vaccines (1 of 2) 2046 Hepatitis C Screening Completed 02/23/2024 HIV Screening Completed 07/24/2024 HIB Vaccines Aged Out No longer eligi ble based on patient's age to complete this topic Hepatitis A Vaccines Aged Out No long er eligible based on patient's age to complete this topic IPV Vaccines Aged Out No longer eligi ble based on patient's age to complete this topic Meningococcal B Vaccine Aged Out No l onger eligible based on patient's age to complete this topic Meningococcal Vaccine Aged Out No gordy ritu eligible based on patient's age to complete this topic Rotavirus Vaccines Aged Out No longer eligible based on patient's age to complete this topic Insurance [place] GLEZ [id number] [employer]ET[employer] [facility] Care Teams Traffic Control Officer Relationship Specialty Start Date End Date Richardson Melgoza MD [address] [facility] [address] [place] [address] PCP - General Family Medicine 12/10/24
[2025-02-12 10:07] LABS: Hemoglobin 11.7 g/dL (14.1-18.0)
[2025-02-12 10:16] LABS: Potassium 4.1 mmoL/L (3.5-5.1)
== END 2025-02-12 23:59 | disposition home or self-care (01) ==
LOC: LAB 09:52
PROVIDERS: PCP Family Medicine; Visit Provider Internal Medicine
DX: N18.6 End stage renal disease (principal); Z99.2 Dependence on renal dialysis
CPT/HCPCS: 36415; 84132; 85018

== ENCOUNTER 2025-03-29 15:47 | Outpatient (CLI) | payer OTHER, SELFPAY ==
--- OUTSIDE RECORDS SUMMARY | 2025-03-29 15:50 | XMS_ITS | Encounter Summary ---
Author Organization [facility] Address [address] [place] [address] Care Team Providers Care Firer Retort Name Role Phone Richardson Melgoza MD Primary Care Provider + [phone] Source Comments This information has been disclosed [...] release of HIV test results or diagnoses. [id number] Health Encounter Details Date Type Department Care Team (Late st Contact Info) Description 02/18/2025 Telephone [facility] Kidney Transplant at [address] [address] Lior Marquez RN Social History Tobacco Use Types Packs/Day Years [...] on file documented as of this encounter Progress Notes * Lior Marquez RN - 02/18/2025 4:47 PM EST Spoke to pt- advised will need updated dental clearance for new insurance authorization per FC. Patient stated he will schedule dentist appointment, will notify this [facility] coordinator when complete so can send clearance over. Advised patient this needs to be completed before March. Pt verbalized understanding. documented in this encounter Plan of Treatment Not on file documented as of this encounter Visit Diagnoses Not on filedocumented in this encounter Additional Health Concerns Assessment Noted Time PHQ-9 Depression Total Score: 7 06/22/19 24 1:00 PM EDT documented as of this encounter Care Teams Firer Retort Relationship Specialty Start Date End Date Richardson Melgoza MD [address] [place] [address] PCP - General Family Medicine 08/10/23 documented as of this encounter
--- OUTSIDE RECORDS SUMMARY | 2025-03-29 15:50 | XMS_ITS ---
Author Organization [facility] Address [address] [place] [address] Care Team Providers Care Claims Sorter Name Role Phone Richardson Melgoza MD Primary Care Provider [phone] Transplant Episode Kidney Candidate [facility] ([place], [place]) - [facility] Center waitlisted on 12/05/2023 Marked as Active on 09/26/2024 Kidney CoordinatorLior Marquez RN Phone: N/A Fax: N/A Email: N/A Scores Score Value Updated Exceptions/Reas ons CPRA 50 09/21/2024 EPTS (Calc) 4 03/29/2025 [place] Organ Diagnosis Organ Primary Contributory Kidney IgA Nephropathy Care Team Name Role Phone Fax Email Lior Marquez RN Kidney Coordinator N/A N/A N/A Aman Potter MD Referring Physician [phone] N/A Events Pre-Transplant Referred: 03/14/2023 Evaluation began: 06/22/2023 Committee: 11/21/2023 UNOS qualified: 12/04/2022 Center waitlisted: 12/05/2023 Dialysis History Dialysis History Start End Type Comments Center 12/04/2022 Hemodialysis MWF; [facility] Dialysis Center Information Center Phone Fax Address [facility] [phone] [place] [address]
--- OUTSIDE RECORDS SUMMARY | 2025-03-29 15:50 | XMS_ITS | Encounter Summary ---
Author Organization [facility] Address [address] [place] [address] Care Team Providers Care Developer Programmer Name Role Phone Richardson Melgoza MD Primary Care Provider + [phone] Source Comments This information has been disclosed [...] release of HIV test results or diagnoses. [id number] Health Encounter Details Date Type Department Care Team (Late st Contact Info) Description 03/26/2025 Orders Only [facility] [address] [place] [address] Clif Cunningham MD [address] [facility] [address] [place] [address] Social History Tobacco Use Types [...] Comments HOX - HLA ANTIBODY-DETAILED REPORT Routine 03/26/2025 1:55 PM EST documented in this encounter Results * Hox - HLA Antibody-Detailed Report (03/26/2025 1:55 PM EST) 03/26/2025 1:55 PM EST Clif Cunningham MD LAB BLOOD ORDERABLES Final Resul t Performing Organization Address City/State/[facility] Co de Phone Number [facility] [address] [place] [address] documented in this encounter Visit Diagnoses Not on filedocumented in this encounter Additional Health Concerns Assessment Noted Time PHQ-9 Depression Total Score: 7 06/22/19 24 1:00 PM EDT documented as of this encounter Care Teams Developer Programmer Relationship Specialty Start Date End Date Richardson Melgoza MD [address] [place] [address] PCP - General Family Medicine 08/10/23 documented as of this encounter
--- OUTSIDE RECORDS SUMMARY | 2025-03-29 15:50 | XMS_ITS | Patient Health Record ---
[facility] Address [address] [place] [id number] Care Team Providers Care Lead Applier Name Role Phone Damien Ruiz Primary Care Provider [phone] Allergies Allergen (clinical drug ingredient) Drug/Non Drug [...] Risk Notes Problem End stage renal disease (05431864) End stage renal disease (N18.6) Active confirmed Problem Migraine without aura, not refractory (313918557) Migraine without aura and without status migrainosus, not intractable (G43.009) Active confirmed Problem Chronic renal failure syndrome (34356471) Chronic renal impairment, unspecified CKD stage (N18.9) Active confirmed Problem Essential hypertension (96717551) Hypertension, unspecified type (I10) Active confirmed Plan Of Treatment No Information Insurance Providers Payer Name Payer Address Payer Phone Subscriber Number Group Number Insured Name Patient Relationship to Insured Coverage Start Date Coverage End Date VANESSA ALVAREZ [address] [place] [address] [id number] EMIL HORTA Self - patient is the insured Medications Administered Medication Instructions Date of Administration Dosage Notes Gio 08/03/2018 4 mg Medical (General) History Medical History History ICD Code Chronic Kidney Disease, S/P Renal Biopsy , followed at and [facility] IgA Nephropathy dialysis, started November 2022 Surgical History Surgery Date(Month/Year) LT Kidney Biopsy 08/2018 Hospitalization History Reason Date(Month/Year) Bee Sting- [facility] ER 11/2010 Cough, SOA- [facility] ER 02/23/2015 LT Index Finger Laceration- [facility] ER 03/22 Strep Throat- [facility] ER 09/2016 - Kidney Disease- 08/03-08/10/2018
--- OUTSIDE RECORDS SUMMARY | 2025-03-29 15:50 | XMS_ITS | Encounter Summary ---
Author Organization [facility] Address [address] [place] [address] Care Team Providers Care Vendor Specialist Name Role Phone Richardson Melgoza MD Primary Care Provider + [phone] Source Comments This information has been disclosed [...] release of HIV test results or diagnoses. [id number] Health Encounter Details Date Type Department Care Team (Late st Contact Info) Description 03/22/2025 Telephone [facility] Kidney Transplant at [address] [address] Lior Marquez RN Social History [...] on file documented as of this encounter Miscellaneous Notes * Telephone Encounter - Lior Marquez RN - 03/22/2025 3:21 PM EST Spoke to pt- follow up on dental clearance. Pt stated he has not been able to get an appointment with dentist. First available appointment in April. Encouraged patient to follow up with dentist to ask for first available/cancelled appointment call. Advised patient that his insurance auth expires 04/10/25- need dental clearance to obtain new auth. Pt verbalized understanding.Will follow up with FC. documented in this encounter Plan of Treatment Not on file documented as of this encounter Visit Diagnoses Not on filedocumented in this encounter Additional Health Concerns Assessment Noted Time PHQ-9 Depression Total Score: 7 06/22/19 24 1:00 PM EDT documented as of this encounter Care Teams Vendor Specialist Relationship Specialty Start Date End Date Richardson Melgoza MD [address] [place] [address] PCP - General Family Medicine 08/10/23 documented as of this encounter
--- OUTSIDE RECORDS SUMMARY | 2025-03-29 15:52 | XMS_ITS | Clinical Summary ---
Author Organization [facility] Address [address] [place] [address] Care Team Providers Care Diesel Trailer Mechanic Name Role Phone Richardson Melgoza MD Primary Care Provider + [phone] Aman Potter MD Unavailable Allergies Active Allergy [...] 6 (six) hours if needed. Active B Qshbvnt-B-Kclsz Acid (Cynthia-Audie) tablet Take 0.8 mg by [...] and bone disorder 12/04/2020 Persistent proteinuria 12/04/2020 Immunizations Immunization Administration Dates Next Due Influenza, [...] Health Maintenance Due Date Last Done Comments [facility]-/Child/Adol SDOH Screenings 1996 [id number] Vaccine (#1) 02/14/1997 [facility]-Varicella Vaccines (1 of 2 - 13+ 2-dose series) 2009 [facility]- SDOH Screenings 2014 [facility]-Adult SDOH Screenings 2014 [facility]-Pneumococcal Vaccine: Pediatrics (0 to 5 Years) and At-Risk Patients (6 to 49 Years) (1 of 2 - PCV) 08/15/2015 [facility]-Zoster Vaccines (1 of 2) 08/15/2015 [facility]-Hepatitis B Vaccines (1 of 3 - Risk Dialysis 4-dose series) 2016 [facility]-Depression Screening 02/22/2025 02/23/2024 [facility]-DTaP,Tdap,and Td Vaccines (3 - Td or Tdap) 08/08/2030 08/08/2020, 09/15/2007 [facility]-Hepatitis C Screening Completed 2023, 08/03/2018, 08/03/2018 [facility]-Obesity Intervention Completed 025, 02/23/2024, 02/23/2024, Additional history exists [facility]-HIV Screening Completed 07/24/2024, , 06/22/2023, Additional history exists [facility]-Influenza Vaccine Completed 01/25/2025, 019 HPV Vaccines (No Doses Required) Completed [facility]-HIB Vaccines Aged Out No longer e [...] Reactive Non Reactive 02/23/2024 8:28 AM EST [facility] Comment:Screening for HIV 1 & 2 antibodies, and P24 antigen is NONREACTIVE. No confirmatory testing is required. Blood Venous blood specimen / Unknown Venipuncture / Unknown 02/23/2024 7:19 AM EST 02/23/2024 7:40 AM EST us Fide Anthony MD LAB BLOOD ORDERABLES Final Resul t Performing Organization Address City/[facility]/ZIP Co de Phone Number [facility] [address] [place] [address] * Hepatitis C antibody (02/23/2024 7:19 AM EST) Hepatitis C Antibody Negative Negative 02/23/2024 8:28 AM EST [facility] Blood Venous blood specimen / Unknown Venipuncture / Unknown 02/23/2024 7:19 AM EST 02/23/2024 7:41 AM EST us Fide Anthony MD LAB BLOOD ORDERABLES Final Resul t [facility] [address] [place] [address] from Last 3 Months or Most Recently Relevant to Health [place] [id number] [employer] Advance Directives * Full Code (Latest Code Status on File) Date Activated Date Inactivated Comments 12/20/2020 11:54 AM 12/20/2020 6:31 PM Question Answer Comments Patient has decision-making capacity? Yes * Full Code Date Activated Date Inactivated Comments 12/18/2020 3:50 PM 12/19/2020 3:03 PM Question Answer Comments Patient has decision-making capacity? Yes Care Teams Diesel Trailer Mechanic Relationship Specialty Start Date End Date Richardson Melgoza MD [address] [facility] [address] [place] [address] PCP - General 08/22/20 Aman Potter MD [address] [place] [id number] Referring Physician Nephrology 12/10/22
--- OUTSIDE RECORDS SUMMARY | 2025-03-29 15:52 | XMS_ITS | Clinical Summary ---
Author Organization [facility] Address [address] [place] [address] Phone [email or web address] Care Team Providers Care Hog Cutter Name Role Phone Unavailable Primary Care Provider [...]
--- OUTSIDE RECORDS SUMMARY | 2025-03-29 15:52 | XMS_ITS ---
Author Organization [facility] ([facility]) Address [address] [place] [id number] Care Team Providers Care Senior Mechanical Project Manager Name Role Phone Unavailable Unavailable Unavailable Allergies, Adverse Reactions, Alerts Allergy Name Allergy Type Status Severity Reaction(s) Onset Date Inactive Date Treating Clinician Comments Penicillins Allergy Active Moderate Allergy Hives 04-14 16:41: 38 Medications Ordered Medication Name Filled Medication Name Start Date Stop Date Current Medication? Ordering Clinician Indication Dosage Frequency Signature (SIG) Comments Components Mircera 2024-04 18:43: 17 Yes [id number] Number of Repeats Allowed: Frequency: AMI dosing, every four weeks calcitriol 2024-04 04:00: 00 Yes [id number] Number of Repeats Allowed: Frequency: Three times a week heparin sodium, porcine 08-23 11:16: 47 Yes [id number] Number of Repeats Allowed: Frequency: Every Dialysis TreatmentD osesOrdere d: Hourly Dose 1000 Units/Hr 1:1000 Units/mLRo ana: Intravenou s clonidine hydrochlori de 2023-04 17:21: 54 Yes [id number] Number of Repeats Allowed: Frequency: Every 4 hours as needed ondansetron hydrochlori de 08-17 13:58: 13 Yes [id number] Number of Repeats Allowed: Frequency: Every 4 hours as needed heparin sodium, porcine 12-29 11:22: 27 Yes [id number] Number of Repeats Allowed: Frequency: Every Dialysis TreatmentD osesOrdere d: Loading Dose 2000 Units 1:1000 Units/mLRo ana: Intravenou s Problems This patient has no known problems. Procedures Procedure Date / Time Performed Performing Clinician Carmelina ce Details AV Fistula 2023-03-31 05:00:00 Access Surgeon TRAVIS OVALLE M.D. ( [id number]),[place], [place] Access Site Forearm (Left) Access Use Start Date 2023-05-26 00:00:0 0 Central Venous Catheter (CVC)2023-02-16 05:00:00 Access Site Subclavian (Right) Access Use Start Date 2023-02-16 05:00:0 0 Access Use End Date 2023-06-20 04:00:00 Central Venous Catheter (CVC)2022-11-30 04:00:00 Access Site Chest (Right) Access Use Start Date 2022-12-04 04:00:0 0 Access Use End Date 2023-02-16 05:00:00 DIALYSIS TREATMENT INFORMATION Conventional Hemodialysis Date Type Treatment Start Date Treatment End Date Pre-Treatment Vitals Post-Treatment Vitals Weight Gain BFR DFR Actual UF Dialysis Access Decem 2024 In-Ce nter Hemod ialys is Treat ment 2025-03-22 T14:29:04. 000Z 2025-03-22 T18:03:50. 000Z BP Sitting (Pre-Dialysis) 183/120 mmHg BP Sitting (Post-D ialysis ) 120/ 76 mmHg Sitting Heart Rate Pre-Dialysis 82 BPM BP Standing (Post-Dialysis) 118/81 mmHg Temperature Pre-Dialysis 97.6 degF Sitting Heart Ra te Post-Dialysis 97 BPM Standing Heart Rate Post-Nusrat lysis 112 BPM Temperature Post-Dialysis 97 .9 degF March 15, 2025 In-Center Hemodialysis Treatment 2928-08-37B42:20:00.000Z 3007-93-49N89:01:11.000Z BP Sitting (Pre-Dialysis) 149/103 mmHg BP Sitting (Post-Dialysis) 129/87 mmHg Concurrent Access: falseAV Fistula Forearm (Left) Arterial Sitting Heart Rate Pre-Dialysis 103 BPM BP Standi ng (Post-Dialysis) 128/83 mmHg Temperature Pre-Dialysis 98 degF Sitting Heart Ra te Post-Dialysis 94 BPM Standing Heart Rate Post-Nusrat lysis 104 BPM Temperature Post-Dialysis 98 .7 degF March 13, 2025 In-Center Hemodialysis Treatment 1759-55-55E58:52:13.000Z 4114-39-03G92:55:56.000Z BP Sitting (Pre-Dialysis) 168/108 mmHg BP Sitting (Post-Dialysis) 107/77 mmHg Concurrent Access: falseAV Fistula Forearm (Left) Arterial BP Standing (Pre-Dialysis) 159/99 mmHg BP Standing (P ost-Dialysis) 123/95 mmHg Sitting Heart Rate Pre-Dialysis 86 BPM Sitting Heart Rate Post-Dialysis 55 BPM Standing Heart Rate Pre-Dialysis 100 BPM Standing Heart Rate Post-Dialysis 62 BPM Temperature Pre-Dialysis 98.3 degF Temperature Post -Dialysis 98 degF March 11, 2025 In-Center Hemodialysis Treatment 0984-59-62J46:32:00.000Z 5525-37-93G24:11:49.000Z BP Sitting (Pre-Dialysis) 179/113 mmHg BP Sitting (Post-Dialysis) 132/86 mmHg Concurrent Access: falseAV Fistula Forearm (Left) Arterial Sitting Heart Rate Pre-Dialysis 86 BPM Sitting H eart Rate Post-Dialysis 93 BPM Temperature Pre-Dialysis 98.5 degF Temperature Post -Dialysis 98.3 degF March 08, 2025 In-Center Hemodialysis Treatment 2737-44-04Y29:07:51.000Z 7493-78-49J14:39:51.000Z BP Sitting (Pre-Dialysis) 129/84 mmHg BP Sitting (Post-Dialysis) 118/62 mmHg Concurrent Access: falseAV Fistula Forearm (Left) Arterial BP Standing (Pre-Dialysis) 175/115 mmHg BP Standing (P ost-Dialysis) 126/69 mmHg Sitting Heart Rate Pre-Dialysis 77 BPM Sitting Heart Rate Post-Dialysis 88 BPM Standing Heart Rate Pre-Dialysis 86 BPM Standing Heart Rate Post-Dialysis 80 BPM Temperature Pre-Dialysis 97.8 degF Temperature Post -Dialysis 97.6 degF March 06, 2025 In-Center Hemodialysis Treatment 6942-98-44Y71:57:45.000Z 2082-05-38B99:28:33.000Z BP Sitting (Pre-Dialysis) 164/111 mmHg BP Sitting (Post-Dialysis) 116/88 mmHg Concurrent Access: falseAV Fistula Forearm (Left) Arterial BP Standing (Pre-Dialysis) 161/110 mmHg Sitti ng Heart Rate Post-Dialysis 107 BPM Sitting Heart Rate Pre-Dialysis 80 BPM Temperatu re Post-Dialysis 97.9 degF Standing Heart Rate Pre-Dialysis 86 BPM Temperature Pre-Dialysis 98 degF March 01, 2025 In-Center Hemodialysis Treatment 4587-27-73X75:53:57.000Z 5766-62-81S60:23:53.000Z BP Sitting (Pre-Dialysis) 141/79 mmHg BP Sitting (Post-Dialysis) 138/80 mmHg Concurrent Access: falseAV Fistula Forearm (Left) Arterial BP Standing (Pre-Dialysis) 145/65 mmHg Sitting Heart Rate Post-Dialysis 92 BPM Sitting Heart Rate Pre-Dialysis 80 BPM Temperatu re Post-Dialysis 98 degF Standing Heart Rate Pre-Dialysis 102 BPM Temperature Pre-Dialysis 98.1 degF February 22, 2025 In-Center Hemodialysis Treatment 6189-26-13F51:33:24.000Z 5521-04-28J94:06:05.000Z BP Sitting (Pre-Dialysis) 152/102 mmHg BP Sitting (Post-Dialysis) 118/94 mmHg Concurrent Access: falseAV Fistula Forearm (Left) Arterial BP Standing (Pre-Dialysis) 104/80 mmHg BP Standing (P ost-Dialysis) 108/88 mmHg Sitting Heart Rate Pre-Dialysis 80 BPM Sitting Heart Rate Post-Dialysis 96 BPM Standing Heart Rate Pre-Dialysis 95 BPM Standing Heart Rate Post-Dialysis 109 BPM Temperature Pre-Dialysis 97 degF Temperature Post -Dialysis 98.4 degF February 18, 2025 In-Center Hemodialysis Treatment 5261-03-83Q86:29:07.000Z 8633-57-50Z94:08:29.000Z BP Sitting (Pre-Dialysis) 167/107 mmHg BP Sitting (Post-Dialysis) 152/102 mmHg Concurrent Access: falseAV Fistula Forearm (Left) Arterial BP Standing (Pre-Dialysis) 158/94 mmHg BP Standing (P ost-Dialysis) 136/97 mmHg Sitting Heart Rate Pre-Dialysis 86 BPM Sitting Heart Rate Post-Dialysis 89 BPM Standing Heart Rate Pre-Dialysis 92 BPM Standing Heart Rate Post-Dialysis 113 BPM Temperature Pre-Dialysis 97.9 degF Temperature Post -Dialysis 98.1 degF February 14, 2025 In-Center Hemodialysis Treatment 5173-89-34S01:48:00.000Z 5255-86-64A66:51:53.000Z BP Sitting (Pre-Dialysis) 145/91 mmHg BP Sitting (Post-Dialysis) 130/85 mmHg Concurrent Access: falseAV Fistula Forearm (Left) Arterial BP Standing (Pre-Dialysis) 147/101 mmHg BP Standing (P ost-Dialysis) 135/85 mmHg Sitting Heart Rate Pre-Dialysis 97 BPM Sitting Heart Rate Post-Dialysis 81 BPM Standing Heart Rate Pre-Dialysis 97 BPM Standing Heart Rate Post-Dialysis 81 BPM Temperature Pre-Dialysis 98.3 degF Temperature Post -Dialysis 98.3 degF February 13, 2025 In-Center Hemodialysis Treatment 9648-45-69R52:41:43.000Z 6438-11-37Y47:16:18.000Z BP Sitting (Pre-Dialysis) 176/127 mmHg BP Sitting (Post-Dialysis) 133/121 mmHg Concurrent Access: falseAV Fistula Forearm (Left) Arterial BP Standing (Pre-Dialysis) 175/128 mmHg BP Standing (P ost-Dialysis) 126/67 mmHg Sitting Heart Rate Pre-Dialysis 85 BPM Sitting Heart Rate Post-Dialysis 62 BPM Standing Heart Rate Pre-Dialysis 85 BPM Standing Heart Rate Post-Dialysis 114 BPM Temperature Pre-Dialysis 97.9 degF Temperature Post -Dialysis 97.6 degF February 04, 2025 In-Center Hemodialysis Treatment 8194-78-97U80:18:00.000Z 7837-85-56H05:52:08.000Z BP Sitting (Pre-Dialysis) 164/107 mmHg BP Sitting (Post-Dialysis) 157/89 mmHg Concurrent Access: falseAV Fistula Forearm (Left) Arterial BP Standing (Pre-Dialysis) 169/106 mmHg BP Standing (P ost-Dialysis) 132/85 mmHg Sitting Heart Rate Pre-Dialysis 86 BPM Sitting Heart Rate Post-Dialysis 80 BPM Standing Heart Rate Pre-Dialysis 88 BPM Standing Heart Rate Post-Dialysis 87 BPM Temperature Pre-Dialysis 98.2 degF Temperature Post -Dialysis 98.3 degF February 01, 2025 In-Center Hemodialysis Treatment 1233-45-61C11:51:00.000Z 3954-75-63X77:23:10.000Z BP Sitting (Pre-Dialysis) 166/95 mmHg BP Sitting (Post-Dialysis) 139/105 mmHg Concurrent Access: falseAV Fistula Forearm (Left) Arterial BP Standing (Pre-Dialysis) 168/92 mmHg BP Standing (P ost-Dialysis) 142/74 mmHg Sitting Heart Rate Pre-Dialysis 80 BPM Sitting Heart Rate Post-Dialysis 84 BPM Standing Heart Rate Pre-Dialysis 80 BPM Standing Heart Rate Post-Dialysis 90 BPM Temperature Pre-Dialysis 98.2 degF Temperature Post -Dialysis 98.1 degF January 30, 2025 In-Center Hemodialysis Treatment 8360-41-16G78:10:59.000Z 1462-60-42D10:45:22.000Z BP Sitting (Pre-Dialysis) 117/85 mmHg BP Sitting (Post-Dialysis) 133/81 mmHg Concurrent Access: falseAV Fistula Forearm (Left) Arterial BP Standing (Pre-Dialysis) 114/93 mmHg Sitti ng Heart Rate Post-Dialysis 90 BPM Sitting Heart Rate Pre-Dialysis 73 BPM Temperatu re Post-Dialysis 97.9 degF Standing Heart Rate Pre-Dialysis 80 BPM Temperature Pre-Dialysis 97.4 degF January 28, 2025 In-Center Hemodialysis Treatment 2199-62-18P02:39:16.000Z 5492-65-93C82:11:41.000Z BP Sitting (Pre-Dialysis) 131/68 mmHg BP Sitting (Post-Dialysis) 110/57 mmHg Concurrent Access: falseAV Fistula Forearm (Left) Arterial BP Standing (Pre-Dialysis) 155/103 mmHg BP Standing (P ost-Dialysis) 140/92 mmHg Sitting Heart Rate Pre-Dialysis 74 BPM Sitting Heart Rate Post-Dialysis 80 BPM Standing Heart Rate Pre-Dialysis 87 BPM Standing Heart Rate Post-Dialysis 99 BPM Temperature Pre-Dialysis 98.2 degF Temperature Post -Dialysis 98.6 degF January 25, 2025 In-Center Hemodialysis Treatment 0499-84-27A89:55:00.000Z 4572-29-47X27:28:31.000Z BP Sitting (Pre-Dialysis) 98/63 mmHg BP Sitting (Post-Dialysis) 151/109 mmHg Concurrent Access: falseAV Fistula Forearm (Left) Arterial BP Standing (Pre-Dialysis) 146/128 mmHg Sitti ng Heart Rate Post-Dialysis 80 BPM Sitting Heart Rate Pre-Dialysis 66 BPM Temperatu re Post-Dialysis 97.6 degF Standing Heart Rate Pre-Dialysis 66 BPM Temperature Pre-Dialysis 98 degF January 23, 2025 In-Center Hemodialysis Treatment 4579-21-63M84:19:24.000Z 3420-86-44N02:30:50.000Z BP Sitting (Pre-Dialysis) 156/97 mmHg BP Sitting (Post-Dialysis) 157/109 mmHg Concurrent Access: falseAV Fistula Forearm (Left) Arterial BP Standing (Pre-Dialysis) 132/80 mmHg BP Standing (P ost-Dialysis) 154/107 mmHg Sitting Heart Rate Pre-Dialysis 80 BPM Sitting Heart Rate Post-Dialysis 96 BPM Standing Heart Rate Pre-Dialysis 88 BPM Standing Heart Rate Post-Dialysis 94 BPM Temperature Pre-Dialysis 97.4 degF Temperature Post -Dialysis 97.4 degF January 21, 2025 In-Center Hemodialysis Treatment 2612-53-10T74:41:00.000Z 6015-84-54C58:15:45.000Z BP Sitting (Pre-Dialysis) 179/104 mmHg BP Sitting (Post-Dialysis) 169/104 mmHg Concurrent Access: falseAV Fistula Forearm (Left) Arterial BP Standing (Pre-Dialysis) 149/99 mmHg BP Standing (P ost-Dialysis) 109/63 mmHg Sitting Heart Rate Pre-Dialysis 98 BPM Sitting Heart Rate Post-Dialysis 89 BPM Standing Heart Rate Pre-Dialysis 98 BPM Standing Heart Rate Post-Dialysis 94 BPM Temperature Pre-Dialysis 98.6 degF Temperature Post -Dialysis 98.3 degF January 19, 2025 In-Center Hemodialysis Treatment 7005-20-62R25:18:03.000Z 5577-76-97C97:50:56.000Z BP Sitting (Pre-Dialysis) 163/105 mmHg BP Sitting (Post-Dialysis) 131/99 mmHg Concurrent Access: falseAV Fistula Forearm (Left) Arterial BP Standing (Pre-Dialysis) 163/105 mmHg BP Standing (P ost-Dialysis) 143/84 mmHg Sitting Heart Rate Pre-Dialysis 89 BPM Sitting Heart Rate Post-Dialysis 109 BPM Standing Heart Rate Pre-Dialysis 89 BPM Standing Heart Rate Post-Dialysis 103 BPM Temperature Pre-Dialysis 97.9 degF Temperature Post -Dialysis 97.9 degF January 18, 2025 In-Center Hemodialysis Treatment 8652-21-85R46:46:00.000Z 2073-68-34T13:20:00.000Z BP Sitting (Pre-Dialysis) 165/111 mmHg BP Sitting (Post-Dialysis) 156/113 mmHg Concurrent Access: falseAV Fistula Forearm (Left) Arterial BP Standing (Pre-Dialysis) 146/116 mmHg BP Standing (P ost-Dialysis) 146/101 mmHg Sitting Heart Rate Pre-Dialysis 128 BPM Sitting Heart Rate Post-Dialysis 80 BPM Standing Heart Rate Pre-Dialysis 103 BPM Standing Heart Rate Post-Dialysis 113 BPM Temperature Pre-Dialysis 98 degF Temperature Post -Dialysis 98.3 degF January 17, 2025 In-Center Hemodialysis Treatment 8880-46-09L27:28:51.000Z 2310-08-55G28:58:08.000Z BP Sitting (Pre-Dialysis) 164/112 mmHg BP Sitting (Post-Dialysis) 158/109 mmHg Concurrent Access: falseAV Fistula Forearm (Left) Arterial BP Standing (Pre-Dialysis) 168/102 mmHg Sitti ng Heart Rate Post-Dialysis 93 BPM Sitting Heart Rate Pre-Dialysis 89 BPM Temperatu re Post-Dialysis 97.8 degF Standing Heart Rate Pre-Dialysis 89 BPM Temperature Pre-Dialysis 97.9 degF January 11, 2025 In-Center Hemodialysis Treatment 4411-72-85P32:25:42.000Z 9726-28-26F34:05:17.000Z BP Sitting (Pre-Dialysis) 174/111 mmHg BP Sitting (Post-Dialysis) 125/93 mmHg Concurrent Access: falseAV Fistula Forearm (Left) Arterial BP Standing (Pre-Dialysis) 170/99 mmHg Sitti ng Heart Rate Post-Dialysis 93 BPM Sitting Heart Rate Pre-Dialysis 80 BPM Temperatu re Post-Dialysis 97.7 degF Standing Heart Rate Pre-Dialysis 85 BPM Temperature Pre-Dialysis 98.2 degF January 09, 2025 In-Center Hemodialysis Treatment 9237-59-18F48:29:43.000Z 1517-27-97S82:11:54.000Z BP Sitting (Pre-Dialysis) 163/111 mmHg BP Sitting (Post-Dialysis) 139/88 mmHg Concurrent Access: falseAV Fistula Forearm (Left) Arterial BP Standing (Pre-Dialysis) 160/100 mmHg BP Standing (P ost-Dialysis) 153/86 mmHg Sitting Heart Rate Pre-Dialysis 82 BPM Sitting Heart Rate Post-Dialysis 86 BPM Standing Heart Rate Pre-Dialysis 80 BPM Standing Heart Rate Post-Dialysis 85 BPM Temperature Pre-Dialysis 97.6 degF Temperature Post -Dialysis 97.9 degF January 07, 2025 In-Center Hemodialysis Treatment 2601-98-17O86:25:00.000Z 7381-16-51R57:57:30.000Z BP Sitting (Pre-Dialysis) 174/96 mmHg BP Sitting (Post-Dialysis) 149/81 mmHg Concurrent Access: falseAV Fistula Forearm (Left) Arterial BP Standing (Pre-Dialysis) 160/85 mmHg BP Standing (P ost-Dialysis) 110/76 mmHg Sitting Heart Rate Pre-Dialysis 80 BPM Sitting Heart Rate Post-Dialysis 99 BPM Standing Heart Rate Pre-Dialysis 88 BPM Standing Heart Rate Post-Dialysis 99 BPM Temperature Pre-Dialysis 98.3 degF January 04, 2025 In-Center Hemodialysis Treatment 4337-08-50C38:35:16.000Z 4303-87-36V43:54:36.000Z BP Sitting (Pre-Dialysis) 164/98 mmHg BP Sitting (Post-Dialysis) 139/98 mmHg Concurrent Access: falseAV Fistula Forearm (Left) Arterial BP Standing (Pre-Dialysis) 164/98 mmHg BP Standing (P ost-Dialysis) 138/89 mmHg Sitting Heart Rate Pre-Dialysis 80 BPM Sitting Heart Rate Post-Dialysis 108 BPM Standing Heart Rate Pre-Dialysis 80 BPM Standing Heart Rate Post-Dialysis 120 BPM Temperature Pre-Dialysis 98.3 degF Temperature Post -Dialysis 98.2 degF January 02, 2025 In-Center Hemodialysis Treatment 9807-99-56M48:32:00.000Z 0633-27-66H82:08:20.000Z BP Sitting (Pre-Dialysis) 164/106 mmHg BP Sitting (Post-Dialysis) 148/99 mmHg Concurrent Access: falseAV Fistula Forearm (Left) Arterial Sitting Heart Rate Pre-Dialysis 80 BPM BP Standing (Post-Dialysis) 133/84 mmHg Temperature Pre-Dialysis 98.2 degF Sitting Heart Ra te Post-Dialysis 80 BPM Standing Heart Rate Post-Nusrat lysis 114 BPM Temperature Post-Dialysis 98 degF December 26, 2024 In-Center Hemodialysis Treatment 4013-60-18Q44:26:37.000Z 9821-19-83Z13:58:37.000Z BP Sitting (Pre-Dialysis) 161/104 mmHg BP Sitting (Post-Dialysis) 145/79 mmHg Concurrent Access: falseAV Fistula Forearm (Left) Arterial BP Standing (Pre-Dialysis) 174/112 mmHg BP Standing (P ost-Dialysis) 112/85 mmHg Sitting Heart Rate Pre-Dialysis 80 BPM Sitting Heart Rate Post-Dialysis 80 BPM Standing Heart Rate Pre-Dialysis 77 BPM Standing Heart Rate Post-Dialysis 106 BPM Temperature Pre-Dialysis 97.4 degF Temperature Post -Dialysis 97.4 degF December 21, 2024 In-Center Hemodialysis Treatment 6615-05-73C03:17:53.000Z 9722-49-43A05:51:26.000Z BP Sitting (Pre-Dialysis) 152/67 mmHg BP Sitting (Post-Dialysis) 121/79 mmHg Concurrent Access: falseAV Fistula Forearm (Left) Arterial BP Standing (Pre-Dialysis) 136/96 mmHg BP Standing (P ost-Dialysis) 118/78 mmHg Sitting Heart Rate Pre-Dialysis 82 BPM Sitting Heart Rate Post-Dialysis 95 BPM Standing Heart Rate Pre-Dialysis 89 BPM Standing Heart Rate Post-Dialysis 96 BPM Temperature Pre-Dialysis 98.2 degF Temperature Post -Dialysis 98.4 degF December 19, 2024 In-Center Hemodialysis Treatment 8910-62-59G36:38:47.000Z 7801-95-94Z02:20:32.000Z BP Sitting (Pre-Dialysis) 186/87 mmHg BP Sitting (Post-Dialysis) 131/98 mmHg Concurrent Access: falseAV Fistula Forearm (Left) Arterial BP Standing (Pre-Dialysis) 160/76 mmHg BP Standing (P ost-Dialysis) 140/88 mmHg Sitting Heart Rate Pre-Dialysis 98 BPM Sitting Heart Rate Post-Dialysis 113 BPM Standing Heart Rate Pre-Dialysis 86 BPM Standing Heart Rate Post-Dialysis 82 BPM Temperature Pre-Dialysis 97.9 degF Temperature Post -Dialysis 97.9 degF December 14, 2024 In-Center Hemodialysis Treatment 9913-21-37Y16:20:36.000Z 0798-83-28Z55:55:43.000Z BP Sitting (Pre-Dialysis) 146/65 mmHg BP Sitting (Post-Dialysis) 120/81 mmHg Concurrent Access: falseAV Fistula Forearm (Left) Arterial BP Standing (Pre-Dialysis) 141/96 mmHg Sitti ng Heart Rate Post-Dialysis 89 BPM Sitting Heart Rate Pre-Dialysis 85 BPM Temperatu re Post-Dialysis 98.4 degF Standing Heart Rate Pre-Dialysis 97 BPM Temperature Pre-Dialysis 98.3 degF December 12, 2024 In-Center Hemodialysis Treatment 7205-51-30R52:22:09.000Z 0375-66-98O82:56:54.000Z BP Sitting (Pre-Dialysis) 151/89 mmHg BP Sitting (Post-Dialysis) 109/92 mmHg Concurrent Access: falseAV Fistula Forearm (Left) Arterial BP Standing (Pre-Dialysis) 133/68 mmHg BP Standing (P ost-Dialysis) 139/99 mmHg Sitting Heart Rate Pre-Dialysis 87 BPM Sitting Heart Rate Post-Dialysis 95 BPM Standing Heart Rate Pre-Dialysis 106 BPM Standing Heart Rate Post-Dialysis 90 BPM Temperature Pre-Dialysis 97.4 degF Temperature Post -Dialysis 98.2 degF December 10, 2024 In-Center Hemodialysis Treatment 5826-81-80D10:28:00.000Z 8452-12-82I15:01:20.000Z BP Sitting (Pre-Dialysis) 140/104 mmHg BP Sitting (Post-Dialysis) 150/95 mmHg Concurrent Access: falseAV Fistula Forearm (Left) Arterial BP Standing (Pre-Dialysis) 122/78 mmHg BP Standing (P ost-Dialysis) 127/88 mmHg Sitting Heart Rate Pre-Dialysis 103 BPM Sitting Heart Rate Post-Dialysis 80 BPM Standing Heart Rate Pre-Dialysis 97 BPM Standing Heart Rate Post-Dialysis 80 BPM Temperature Pre-Dialysis 97.9 degF Temperature Post -Dialysis 98 degF December 05, 2024 In-Center Hemodialysis Treatment 3740-99-20L89:26:00.000Z 1306-88-90D14:59:17.000Z BP Sitting (Pre-Dialysis) 142/76 mmHg BP Sitting (Post-Dialysis) 103/75 mmHg Concurrent Access: falseAV Fistula Forearm (Left) Arterial BP Standing (Pre-Dialysis) 123/77 mmHg BP Standing (P ost-Dialysis) 119/81 mmHg Sitting Heart Rate Pre-Dialysis 114 BPM Sitting Heart Rate Post-Dialysis 108 BPM Standing Heart Rate Pre-Dialysis 106 BPM Standing Heart Rate Post-Dialysis 107 BPM Temperature Pre-Dialysis 97.6 degF Temperature Post -Dialysis 97.9 degF December 03, 2024 In-Center Hemodialysis Treatment 9738-03-68A16:25:04.000Z 0523-51-20Q30:57:14.000Z BP Sitting (Pre-Dialysis) 149/99 mmHg BP Sitting (Post-Dialysis) 136/82 mmHg Concurrent Access: falseAV Fistula Forearm (Left) Arterial BP Standing (Pre-Dialysis) 140/95 mmHg BP Standing (P ost-Dialysis) 110/72 mmHg Sitting Heart Rate Pre-Dialysis 80 BPM Sitting Heart Rate Post-Dialysis 85 BPM Standing Heart Rate Pre-Dialysis 82 BPM Standing Heart Rate Post-Dialysis 120 BPM Temperature Pre-Dialysis 98.3 degF Temperature Post -Dialysis 110 degF November 30, 2024 In-Center Hemodialysis Treatment 3409-54-10G19:15:43.000Z 9343-58-83W19:55:13.000Z BP Sitting (Pre-Dialysis) 124/90 mmHg BP Sitting (Post-Dialysis) 149/74 mmHg Concurrent Access: falseAV Fistula Forearm (Left) Arterial BP Standing (Pre-Dialysis) 156/90 mmHg BP Standing (P ost-Dialysis) 120/78 mmHg Sitting Heart Rate Pre-Dialysis 96 BPM Sitting Heart Rate Post-Dialysis 80 BPM Standing Heart Rate Pre-Dialysis 107 BPM Standing Heart Rate Post-Dialysis 120 BPM Temperature Pre-Dialysis 97.4 degF Temperature Post -Dialysis 97.9 degF November 29, 2024 In-Center Hemodialysis Treatment 4804-34-11P21:51:21.000Z 6075-22-74H45:38:00.000Z BP Sitting (Pre-Dialysis) 133/71 mmHg BP Sitting (Post-Dialysis) 119/78 mmHg Concurrent Access: falseAV Fistula Forearm (Left) Arterial BP Standing (Pre-Dialysis) 133/82 mmHg BP Standing (P ost-Dialysis) 102/68 mmHg Sitting Heart Rate Pre-Dialysis 88 BPM Sitting Heart Rate Post-Dialysis 80 BPM Standing Heart Rate Pre-Dialysis 92 BPM Standing Heart Rate Post-Dialysis 99 BPM Temperature Pre-Dialysis 98.3 degF Temperature Post -Dialysis 98 degF November 28, 2024 In-Center Hemodialysis Treatment 0034-79-38L17:32:29.000Z 8328-10-50K82:06:36.000Z BP Sitting (Pre-Dialysis) 140/78 mmHg BP Sitting (Post-Dialysis) 117/78 mmHg Concurrent Access: falseAV Fistula Forearm (Left) Arterial BP Standing (Pre-Dialysis) 122/79 mmHg Sitti ng Heart Rate Post-Dialysis 80 BPM Sitting Heart Rate Pre-Dialysis 80 BPM Temperatu re Post-Dialysis 97.9 degF Standing Heart Rate Pre-Dialysis 88 BPM Temperature Pre-Dialysis 97.5 degF November 22, 2024 In-Center Hemodialysis Treatment 6605-63-13H13:15:00.000Z 8909-22-21I75:48:44.000Z BP Sitting (Pre-Dialysis) 120/82 mmHg BP Sitting (Post-Dialysis) 148/99 mmHg Concurrent Access: falseAV Fistula Forearm (Left) Arterial BP Standing (Pre-Dialysis) 119/82 mmHg BP Standing (P ost-Dialysis) 123/83 mmHg Sitting Heart Rate Pre-Dialysis 80 BPM Sitting Heart Rate Post-Dialysis 73 BPM Standing Heart Rate Pre-Dialysis 80 BPM Standing Heart Rate Post-Dialysis 106 BPM Temperature Pre-Dialysis 98.1 degF Temperature Post -Dialysis 97.8 degF November 19, 2024 In-Center Hemodialysis Treatment 9952-98-97D32:01:00.000Z 4700-30-85W28:32:27.000Z BP Sitting (Pre-Dialysis) 180/113 mmHg BP Sitting (Post-Dialysis) 152/103 mmHg Concurrent Access: falseAV Fistula Forearm (Left) Arterial Sitting Heart Rate Pre-Dialysis 92 BPM BP Standing (Post-Dialysis) 132/76 mmHg Temperature Pre-Dialysis 98.2 degF Sitting Heart Ra te Post-Dialysis 77 BPM Standing Heart Rate Post-Nusrat lysis 114 BPM Temperature Post-Dialysis 98 .3 degF November 14, 2024 In-Center Hemodialysis Treatment 9625-95-86T64:33:00.000Z 0125-71-13V72:44:31.000Z BP Sitting (Pre-Dialysis) 140/81 mmHg BP Sitting (Post-Dialysis) 122/85 mmHg Concurrent Access: falseAV Fistula Forearm (Left) Arterial BP Standing (Pre-Dialysis) 137/82 mmHg Sitti ng Heart Rate Post-Dialysis 86 BPM Sitting Heart Rate Pre-Dialysis 86 BPM Temperatu re Post-Dialysis 98.5 degF Standing Heart Rate Pre-Dialysis 86 BPM Temperature Pre-Dialysis 98.4 degF November 12, 2024 In-Center Hemodialysis Treatment 6389-95-96A23:40:00.000Z 4749-71-89Y44:43:40.000Z BP Sitting (Pre-Dialysis) 159/98 mmHg BP Sitting (Post-Dialysis) 145/62 mmHg Concurrent Access: falseAV Fistula Forearm (Left) Arterial Sitting Heart Rate Pre-Dialysis 79 BPM BP Standing (Post-Dialysis) 105/78 mmHg Temperature Pre-Dialysis 97.4 degF Sitting Heart Ra te Post-Dialysis 80 BPM Standing Heart Rate Post-Nusrat lysis 94 BPM Temperature Post-Dialysis 97 .3 degF November 09, 2024 In-Center Hemodialysis Treatment 7650-23-52E89:42:00.000Z 4726-70-58S19:29:43.000Z BP Sitting (Pre-Dialysis) 112/93 mmHg BP Sitting (Post-Dialysis) 116/65 mmHg Concurrent Access: falseAV Fistula Forearm (Left) Arterial BP Standing (Pre-Dialysis) 137/64 mmHg BP Standing (P ost-Dialysis) 122/78 mmHg Sitting Heart Rate Pre-Dialysis 97 BPM Sitting Heart Rate Post-Dialysis 108 BPM Standing Heart Rate Pre-Dialysis 98 BPM Standing Heart Rate Post-Dialysis 112 BPM Temperature Pre-Dialysis 98 degF Temperature Post -Dialysis 98.2 degF November 07, 2024 In-Center Hemodialysis Treatment [id number]:59:00.000Z [id number]:42:19.000Z BP Sitting (Pre-Dialysis) 165/105 mmHg BP Sitting (Post-Dialysis) 120/92 mmHg Concurrent Access: falseAV Fistula Forearm (Left) Arterial BP Standing (Pre-Dialysis) 117/88 mmHg BP Standing (P ost-Dialysis) 141/96 mmHg Sitting Heart Rate Pre-Dialysis 87 BPM Sitting Heart Rate Post-Dialysis 85 BPM Standing Heart Rate Pre-Dialysis 95 BPM Standing Heart Rate Post-Dialysis 93 BPM Temperature Pre-Dialysis 97.3 degF Temperature Post -Dialysis 98.1 degF November 05, 2024 In-Center Hemodialysis Treatment [id number]:34:15.000Z [id number]:08:36.000Z BP Sitting (Pre-Dialysis) 149/95 mmHg BP Sitting (Post-Dialysis) 131/88 mmHg Concurrent Access: falseAV Fistula Forearm (Left) Arterial BP Standing (Pre-Dialysis) 105/68 mmHg BP Standing (P ost-Dialysis) 110/76 mmHg Sitting Heart Rate Pre-Dialysis 112 BPM Sitting Heart Rate Post-Dialysis 102 BPM Standing Heart Rate Pre-Dialysis 107 BPM Standing Heart Rate Post-Dialysis 120 BPM Temperature Pre-Dialysis 97.5 degF Temperature Post -Dialysis 98.1 degF November 02, 2024 In-Center Hemodialysis Treatment [id number]:12:55.000Z [id number]:39:25.000Z BP Sitting (Pre-Dialysis) 122/78 mmHg BP Sitting (Post-Dialysis) 104/75 mmHg Concurrent Access: falseAV Fistula Forearm (Left) Arterial BP Standing (Pre-Dialysis) 120/86 mmHg BP Standing (P ost-Dialysis) 100/79 mmHg Sitting Heart Rate Pre-Dialysis 90 BPM Sitting Heart Rate Post-Dialysis 112 BPM Standing Heart Rate Pre-Dialysis 80 BPM Standing Heart Rate Post-Dialysis 107 BPM Temperature Pre-Dialysis 97.6 degF Temperature Post -Dialysis 97.6 degF October 31, 2024 In-Center Hemodialysis Treatment [id number]:31:30.000Z 5039-40-16F20:59:01.000Z BP Sitting (Pre-Dialysis) 136/78 mmHg BP Sitting (Post-Dialysis) 122/78 mmHg Concurrent Access: falseAV Fistula Forearm (Left) Arterial BP Standing (Pre-Dialysis) 137/81 mmHg BP Standing (P ost-Dialysis) 115/63 mmHg Sitting Heart Rate Pre-Dialysis 92 BPM Sitting Heart Rate Post-Dialysis 96 BPM Standing Heart Rate Pre-Dialysis 96 BPM Standing Heart Rate Post-Dialysis 105 BPM Temperature Pre-Dialysis 98.5 degF Temperature Post -Dialysis 98.1 degF October 29, 2024 In-Center Hemodialysis Treatment [id number]:36:44.000Z [id number]:09:04.000Z BP Sitting (Pre-Dialysis) 161/102 mmHg BP Sitting (Post-Dialysis) 141/91 mmHg Concurrent Access: falseAV Fistula Forearm (Left) Arterial BP Standing (Pre-Dialysis) 147/94 mmHg BP Standing (P ost-Dialysis) 126/55 mmHg Sitting Heart Rate Pre-Dialysis 85 BPM Sitting Heart Rate Post-Dialysis 97 BPM Standing Heart Rate Pre-Dialysis 86 BPM Standing Heart Rate Post-Dialysis 109 BPM Temperature Pre-Dialysis 98.3 degF Temperature Post -Dialysis 97.6 degF October 26, 2024 In-Center Hemodialysis Treatment [id number]:57:00.000Z [id number]:11:27.000Z BP Sitting (Pre-Dialysis) 136/80 mmHg BP Sitting (Post-Dialysis) 119/59 mmHg Concurrent Access: falseAV Fistula Forearm (Left) Arterial BP Standing (Pre-Dialysis) 136/80 mmHg BP Standing (P ost-Dialysis) 129/99 mmHg Sitting Heart Rate Pre-Dialysis 96 BPM Sitting Heart Rate Post-Dialysis 95 BPM Standing Heart Rate Pre-Dialysis 96 BPM Standing Heart Rate Post-Dialysis 95 BPM Temperature Pre-Dialysis 97.4 degF Temperature Post -Dialysis 97.3 degF October 24, 2024 In-Center Hemodialysis Treatment [id number]:09:30.000Z 3609-43-18G15:38:05.000Z BP Sitting (Pre-Dialysis) 156/94 mmHg BP Sitting (Post-Dialysis) 129/77 mmHg Concurrent Access: falseAV Fistula Forearm (Left) Arterial BP Standing (Pre-Dialysis) 121/89 mmHg Sitti ng Heart Rate Post-Dialysis 94 BPM Sitting Heart Rate Pre-Dialysis 89 BPM Temperatu re Post-Dialysis 97.9 degF Standing Heart Rate Pre-Dialysis 120 BPM Temperature Pre-Dialysis 97.4 degF October 22, 2024 In-Center Hemodialysis Treatment [id number]:27:53.000Z [id number]:57:03.000Z BP Sitting (Pre-Dialysis) 178/118 mmHg BP Sitting (Post-Dialysis) 131/99 mmHg Concurrent Access: falseAV Fistula Forearm (Left) Arterial BP Standing (Pre-Dialysis) 158/112 mmHg Sitti ng Heart Rate Post-Dialysis 106 BPM Sitting Heart Rate Pre-Dialysis 93 BPM Temperatu re Post-Dialysis 97.4 degF Standing Heart Rate Pre-Dialysis 96 BPM Temperature Pre-Dialysis 98.3 degF October 19, 2024 In-Center Hemodialysis Treatment 5942-35-28M03:34:00.000Z 4715-65-89P05:58:52.000Z BP Sitting (Pre-Dialysis) 141/86 mmHg BP Sitting (Post-Dialysis) 158/81 mmHg Concurrent Access: falseAV Fistula Forearm (Left) Arterial BP Standing (Pre-Dialysis) 174/112 mmHg Sitti ng Heart Rate Post-Dialysis 112 BPM Sitting Heart Rate Pre-Dialysis 77 BPM Temperatu re Post-Dialysis 97.5 degF Standing Heart Rate Pre-Dialysis 101 BPM Temperature Pre-Dialysis 97.5 degF October 17, 2024 In-Center Hemodialysis Treatment [id number]:19:50.000Z 0349-22-88W02:42:25.000Z BP Sitting (Pre-Dialysis) 168/112 mmHg BP Sitting (Post-Dialysis) 140/92 mmHg Concurrent Access: falseAV Fistula Forearm (Left) Arterial BP Standing (Pre-Dialysis) 180/109 mmHg BP Standing (P ost-Dialysis) 151/97 mmHg Sitting Heart Rate Pre-Dialysis 82 BPM Sitting Heart Rate Post-Dialysis 96 BPM Standing Heart Rate Pre-Dialysis 86 BPM Standing Heart Rate Post-Dialysis 108 BPM Temperature Pre-Dialysis 98.1 degF Temperature Post -Dialysis 98.5 degF October 15, 2024 In-Center Hemodialysis Treatment [id number]:23:51.000Z 8314-74-30U93:57:04.000Z BP Sitting (Pre-Dialysis) 176/106 mmHg BP Sitting (Post-Dialysis) 126/92 mmHg Concurrent Access: falseAV Fistula Forearm (Left) Arterial BP Standing (Pre-Dialysis) 187/109 mmHg BP Standing (P ost-Dialysis) 128/98 mmHg Sitting Heart Rate Pre-Dialysis 92 BPM Sitting Heart Rate Post-Dialysis 107 BPM Standing Heart Rate Pre-Dialysis 92 BPM Standing Heart Rate Post-Dialysis 107 BPM Temperature Pre-Dialysis 98.1 degF Temperature Post -Dialysis 98.4 degF October 12, 2024 In-Center Hemodialysis Treatment [id number]:08:00.000Z [id number]:30:15.000Z BP Sitting (Pre-Dialysis) 158/116 mmHg BP Sitting (Post-Dialysis) 145/105 mmHg Concurrent Access: falseAV Fistula Forearm (Left) Arterial BP Standing (Pre-Dialysis) 157/102 mmHg BP Standing (P ost-Dialysis) 124/111 mmHg Sitting Heart Rate Pre-Dialysis 97 BPM Sitting Heart Rate Post-Dialysis 99 BPM Standing Heart Rate Pre-Dialysis 97 BPM Standing Heart Rate Post-Dialysis 45 BPM Temperature Pre-Dialysis 97.3 degF Temperature Post -Dialysis 97.8 degF October 11, 2024 In-Center Hemodialysis Treatment 5512-23-24V93:32:29.000Z [id number]:08:20.000Z BP Sitting (Pre-Dialysis) 164/105 mmHg BP Sitting (Post-Dialysis) 178/100 mmHg Concurrent Access: falseAV Fistula Forearm (Left) Arterial BP Standing (Pre-Dialysis) 166/117 mmHg Sitti ng Heart Rate Post-Dialysis 89 BPM Sitting Heart Rate Pre-Dialysis 89 BPM Temperatu re Post-Dialysis 97.9 degF Standing Heart Rate Pre-Dialysis 97 BPM Temperature Pre-Dialysis 97.5 degF October 08, 2024 In-Center Hemodialysis Treatment [id number]:24:01.000Z 8665-97-98R03:57:21.000Z BP Sitting (Pre-Dialysis) 157/119 mmHg BP Sitting (Post-Dialysis) 156/76 mmHg Concurrent Access: falseAV Fistula Forearm (Left) Arterial BP Standing (Pre-Dialysis) 169/105 mmHg Sitti ng Heart Rate Post-Dialysis 92 BPM Sitting Heart Rate Pre-Dialysis 80 BPM Temperatu re Post-Dialysis 98.6 degF Standing Heart Rate Pre-Dialysis 87 BPM Temperature Pre-Dialysis 98.3 degF October 03, 2024 In-Center Hemodialysis Treatment [id number]:35:00.000Z 9690-52-54P97:43:25.000Z BP Sitting (Pre-Dialysis) 161/126 mmHg BP Sitting (Post-Dialysis) 114/76 mmHg Concurrent Access: falseAV Fistula Forearm (Left) Arterial BP Standing (Pre-Dialysis) 174/107 mmHg BP Standing (P ost-Dialysis) 128/90 mmHg Sitting Heart Rate Pre-Dialysis 97 BPM Sitting Heart Rate Post-Dialysis 80 BPM Standing Heart Rate Pre-Dialysis 95 BPM Standing Heart Rate Post-Dialysis 90 BPM Temperature Pre-Dialysis 97.6 degF Temperature Post -Dialysis 97.6 degF October 01, 2024 In-Center Hemodialysis Treatment [id number]:24:00.000Z 7840-79-35Z49:58:20.000Z BP Sitting (Pre-Dialysis) 169/114 mmHg BP Sitting (Post-Dialysis) 161/95 mmHg Concurrent Access: falseAV Fistula Forearm (Left) Arterial BP Standing (Pre-Dialysis) 162/115 mmHg BP Standing (P ost-Dialysis) 142/93 mmHg Sitting Heart Rate Pre-Dialysis 94 BPM Sitting Heart Rate Post-Dialysis 94 BPM Standing Heart Rate Pre-Dialysis 105 BPM Standing Heart Rate Post-Dialysis 107 BPM Temperature Pre-Dialysis 97.3 degF Temperature Post -Dialysis 97.4 degF September 28, 2024 In-Center Hemodialysis Treatment [id number]:33:00.000Z 7357-64-05F76:01:00.000Z BP Sitting (Pre-Dialysis) 166/96 mmHg BP Sitting (Post-Dialysis) 146/86 mmHg Concurrent Access: falseAV Fistula Forearm (Left) Arterial BP Standing (Pre-Dialysis) 133/101 mmHg BP Standing (P ost-Dialysis) 129/74 mmHg Sitting Heart Rate Pre-Dialysis 90 BPM Sitting Heart Rate Post-Dialysis 97 BPM Standing Heart Rate Pre-Dialysis 100 BPM Standing Heart Rate Post-Dialysis 114 BPM Temperature Pre-Dialysis 98.6 degF Temperature Post -Dialysis 98.4 degF September 27, 2024 In-Center Hemodialysis Treatment [id number]:11:34.000Z [id number]:27:07.000Z BP Sitting (Pre-Dialysis) 176/129 mmHg BP Sitting (Post-Dialysis) 139/91 mmHg Concurrent Access: falseAV Fistula Forearm (Left) Arterial BP Standing (Pre-Dialysis) 146/107 mmHg BP Standing (P ost-Dialysis) 120/79 mmHg Sitting Heart Rate Pre-Dialysis 80 BPM Sitting Heart Rate Post-Dialysis 100 BPM Standing Heart Rate Pre-Dialysis 108 BPM Standing Heart Rate Post-Dialysis 109 BPM Temperature Pre-Dialysis 97.9 degF September 26, 2024 In-Center Hemodialysis Treatment [id number]:30:50.000Z 5309-41-72I25:03:15.000Z BP Sitting (Pre-Dialysis) 181/110 mmHg BP Sitting (Post-Dialysis) 174/120 mmHg Concurrent Access: falseAV Fistula Forearm (Left) Arterial BP Standing (Pre-Dialysis) 106/74 mmHg Sitti ng Heart Rate Post-Dialysis 88 BPM Sitting Heart Rate Pre-Dialysis 91 BPM Temperatu re Post-Dialysis 97.6 degF Standing Heart Rate Pre-Dialysis 131 BPM Temperature Pre-Dialysis 98.6 degF September 21, 2024 In-Center Hemodialysis Treatment [id number]:29:15.000Z [id number]:56:43.000Z BP Sitting (Pre-Dialysis) 129/98 mmHg BP Sitting (Post-Dialysis) 153/71 mmHg Concurrent Access: falseAV Fistula Forearm (Left) Arterial BP Standing (Pre-Dialysis) 139/107 mmHg Sitti ng Heart Rate Post-Dialysis 87 BPM Sitting Heart Rate Pre-Dialysis 95 BPM Temperatu re Post-Dialysis 98.2 degF Standing Heart Rate Pre-Dialysis 97 BPM Temperature Pre-Dialysis 98.1 degF September 20, 2024 In-Center Hemodialysis Treatment [id number]:27:25.000Z 9644-88-64S33:42:35.000Z BP Sitting (Pre-Dialysis) 173/112 mmHg BP Sitting (Post-Dialysis) 133/97 mmHg Concurrent Access: falseAV Fistula Forearm (Left) Arterial BP Standing (Pre-Dialysis) 108/83 mmHg BP Standing (P ost-Dialysis) 126/115 mmHg Sitting Heart Rate Pre-Dialysis 82 BPM Sitting Heart Rate Post-Dialysis 94 BPM Standing Heart Rate Pre-Dialysis 85 BPM Standing Heart Rate Post-Dialysis 111 BPM Temperature Pre-Dialysis 97.5 degF Temperature Post -Dialysis 97.5 degF September 19, 2024 In-Center Hemodialysis Treatment [id number]:32:57.000Z 1529-15-81R43:37:58.000Z BP Sitting (Pre-Dialysis) 177/119 mmHg BP Sitting (Post-Dialysis) 162/110 mmHg Concurrent Access: falseAV Fistula Forearm (Left) Arterial BP Standing (Pre-Dialysis) 159/104 mmHg BP Standing (P ost-Dialysis) 136/108 mmHg Sitting Heart Rate Pre-Dialysis 86 BPM Sitting Heart Rate Post-Dialysis 80 BPM Standing Heart Rate Pre-Dialysis 95 BPM Standing Heart Rate Post-Dialysis 133 BPM Temperature Pre-Dialysis 98.3 degF Temperature Post -Dialysis 98.3 degF September 14, 2024 In-Center Hemodialysis Treatment [id number]:38:38.000Z 1293-02-18M72:11:09.000Z BP Sitting (Pre-Dialysis) 169/115 mmHg BP Sitting (Post-Dialysis) 120/86 mmHg Concurrent Access: falseAV Fistula Forearm (Left) Arterial BP Standing (Pre-Dialysis) 175/115 mmHg BP Standing (P ost-Dialysis) 120/50 mmHg Sitting Heart Rate Pre-Dialysis 89 BPM Sitting Heart Rate Post-Dialysis 120 BPM Standing Heart Rate Pre-Dialysis 89 BPM Standing Heart Rate Post-Dialysis 120 BPM Temperature Pre-Dialysis 98.3 degF Temperature Post -Dialysis 97.5 degF September 12, 2024 In-Center Hemodialysis Treatment 8701-32-30L19:57:10.000Z 2215-14-81P19:33:28.000Z BP Sitting (Pre-Dialysis) 158/98 mmHg BP Sitting (Post-Dialysis) 112/76 mmHg Concurrent Access: falseAV Fistula Forearm (Left) Arterial BP Standing (Pre-Dialysis) 123/87 mmHg Sitti ng Heart Rate Post-Dialysis 120 BPM Sitting Heart Rate Pre-Dialysis 94 BPM Temperatu re Post-Dialysis 98.1 degF Standing Heart Rate Pre-Dialysis 104 BPM Temperature Pre-Dialysis 98.4 degF September 10, 2024 In-Center Hemodialysis Treatment [id number]:46:39.000Z 6740-03-92C90:27:07.000Z BP Sitting (Pre-Dialysis) 171/118 mmHg BP Sitting (Post-Dialysis) 130/88 mmHg Concurrent Access: falseAV Fistula Forearm (Left) Arterial BP Standing (Pre-Dialysis) 164/113 mmHg BP Standing (P ost-Dialysis) 132/89 mmHg Sitting Heart Rate Pre-Dialysis 90 BPM Sitting Heart Rate Post-Dialysis 100 BPM Standing Heart Rate Pre-Dialysis 88 BPM Standing Heart Rate Post-Dialysis 113 BPM Temperature Pre-Dialysis 98 degF Temperature Post -Dialysis 98.3 degF September 07, 2024 In-Center Hemodialysis Treatment 7218-07-05T27:27:19.000Z [id number]:58:14.000Z BP Sitting (Pre-Dialysis) 112/87 mmHg BP Sitting (Post-Dialysis) 149/106 mmHg Concurrent Access: falseAV Fistula Forearm (Left) Arterial BP Standing (Pre-Dialysis) 133/111 mmHg BP Standing (P ost-Dialysis) 114/72 mmHg Sitting Heart Rate Pre-Dialysis 80 BPM Sitting Heart Rate Post-Dialysis 96 BPM Standing Heart Rate Pre-Dialysis 80 BPM Standing Heart Rate Post-Dialysis 101 BPM Temperature Pre-Dialysis 97.3 degF Temperature Post -Dialysis 98 degF September 05, 2024 In-Center Hemodialysis Treatment [id number]:37:02.000Z 4091-02-06O29:08:08.000Z BP Sitting (Pre-Dialysis) 137/101 mmHg BP Sitting (Post-Dialysis) 119/97 mmHg Concurrent Access: falseAV Fistula Forearm (Left) Arterial BP Standing (Pre-Dialysis) 168/109 mmHg BP Standing (P ost-Dialysis) 167/77 mmHg Sitting Heart Rate Pre-Dialysis 80 BPM Sitting Heart Rate Post-Dialysis 70 BPM Standing Heart Rate Pre-Dialysis 99 BPM Standing Heart Rate Post-Dialysis 110 BPM Temperature Pre-Dialysis 97.6 degF Temperature Post -Dialysis 97.4 degF September 03, 2024 In-Center Hemodialysis Treatment 5934-23-22I45:44:00.000Z 2094-59-16C51:00:00.000Z BP Sitting (Pre-Dialysis) 190/112 mmHg BP Sitting (Post-Dialysis) 178/110 mmHg Concurrent Access: falseAV Fistula Forearm (Left) Arterial BP Standing (Pre-Dialysis) 178/117 mmHg Sitti ng Heart Rate Post-Dialysis 101 BPM Sitting Heart Rate Pre-Dialysis 88 BPM Temperatu re Post-Dialysis 97.5 degF Standing Heart Rate Pre-Dialysis 92 BPM Temperature Pre-Dialysis 97.4 degF August 31, 2024 In-Center Hemodialysis Treatment 4976-51-15U46:53:00.000Z 1080-77-45F22:24:36.000Z BP Sitting (Pre-Dialysis) 173/108 mmHg BP Sitting (Post-Dialysis) 135/84 mmHg Concurrent Access: falseAV Fistula Forearm (Left) Arterial BP Standing (Pre-Dialysis) 119/93 mmHg Sitti ng Heart Rate Post-Dialysis 106 BPM Sitting Heart Rate Pre-Dialysis 92 BPM Temperatu re Post-Dialysis 97.3 degF Standing Heart Rate Pre-Dialysis 100 BPM Temperature Pre-Dialysis 98.3 degF August 30, 2024 In-Center Hemodialysis Treatment [id number]:31:51.000Z [id number]:46:31.000Z BP Sitting (Pre-Dialysis) 191/87 mmHg BP Sitting (Post-Dialysis) 120/80 mmHg Concurrent Access: falseAV Fistula Forearm (Left) Arterial BP Standing (Pre-Dialysis) 151/111 mmHg BP Standing (P ost-Dialysis) 170/117 mmHg Sitting Heart Rate Pre-Dialysis 105 BPM Sitting Heart Rate Post-Dialysis 69 BPM Standing Heart Rate Pre-Dialysis 117 BPM Standing Heart Rate Post-Dialysis 99 BPM Temperature Pre-Dialysis 97.9 degF Temperature Post -Dialysis 98.1 degF August 27, 2024 In-Center Hemodialysis Treatment [id number]:41:00.000Z 6672-54-49K19:17:02.000Z BP Sitting (Pre-Dialysis) 176/127 mmHg BP Sitting (Post-Dialysis) 163/112 mmHg Concurrent Access: falseAV Fistula Forearm (Left) Arterial BP Standing (Pre-Dialysis) 170/126 mmHg BP Standing (P ost-Dialysis) 140/111 mmHg Sitting Heart Rate Pre-Dialysis 94 BPM Sitting Heart Rate Post-Dialysis 85 BPM Standing Heart Rate Pre-Dialysis 95 BPM Standing Heart Rate Post-Dialysis 82 BPM Temperature Pre-Dialysis 98.3 degF Temperature Post -Dialysis 98.3 degF August 24, 2024 In-Center Hemodialysis Treatment 4890-60-88U12:36:00.000Z 4590-90-69X53:07:41.000Z BP Sitting (Pre-Dialysis) 168/105 mmHg BP Sitting (Post-Dialysis) 138/98 mmHg Concurrent Access: falseAV Fistula Forearm (Left) Arterial BP Standing (Pre-Dialysis) 162/101 mmHg BP Standing (P ost-Dialysis) 137/97 mmHg Sitting Heart Rate Pre-Dialysis 94 BPM Sitting Heart Rate Post-Dialysis 102 BPM Standing Heart Rate Pre-Dialysis 95 BPM Standing Heart Rate Post-Dialysis 102 BPM Temperature Pre-Dialysis 98.3 degF Temperature Post -Dialysis 98.3 degF August 23, 2024 Sequential Treatment [id number]:03:00.000Z [id number]:08:50.000Z BP Sitting (Pre-Dialysis) 165/102 mmHg BP Sitting (Post-Dialysis) 160/112 mmHg Concurrent Access: falseAV Fistula Forearm (Left) Arterial BP Standing (Pre-Dialysis) 161/99 mmHg Sitti ng Heart Rate Post-Dialysis 90 BPM Sitting Heart Rate Pre-Dialysis 87 BPM Temperatu re Post-Dialysis 97.9 degF Standing Heart Rate Pre-Dialysis 95 BPM Temperature Pre-Dialysis 98 degF August 22, 2024 In-Center Hemodialysis Treatment [id number]:22:00.000Z 4363-35-58N26:09:28.000Z BP Sitting (Pre-Dialysis) 166/130 mmHg BP Sitting (Post-Dialysis) 160/113 mmHg Concurrent Access: falseAV Fistula Forearm (Left) Arterial BP Standing (Pre-Dialysis) 163/130 mmHg Sitti ng Heart Rate Post-Dialysis 102 BPM Sitting Heart Rate Pre-Dialysis 108 BPM Temperatu re Post-Dialysis 98.1 degF Standing Heart Rate Pre-Dialysis 113 BPM Temperature Pre-Dialysis 97.9 degF August 20, 2024 In-Center Hemodialysis Treatment [id number]:13:30.000Z 2599-69-88N13:35:05.000Z BP Sitting (Pre-Dialysis) 185/121 mmHg BP Sitting (Post-Dialysis) 136/107 mmHg Concurrent Access: falseAV Fistula Forearm (Left) Arterial BP Standing (Pre-Dialysis) 178/121 mmHg BP Standing (P ost-Dialysis) 121/101 mmHg Sitting Heart Rate Pre-Dialysis 95 BPM Sitting Heart Rate Post-Dialysis 99 BPM Standing Heart Rate Pre-Dialysis 98 BPM Standing Heart Rate Post-Dialysis 92 BPM Temperature Pre-Dialysis 98.7 degF Temperature Post -Dialysis 98.7 degF August 17, 2024 In-Center Hemodialysis Treatment 8319-03-62Y01:12:03.000Z [id number]:42:49.000Z BP Sitting (Pre-Dialysis) 168/112 mmHg BP Sitting (Post-Dialysis) 109/76 mmHg Concurrent Access: falseAV Fistula Forearm (Left) Arterial BP Standing (Pre-Dialysis) 156/108 mmHg BP Standing (P ost-Dialysis) 108/83 mmHg Sitting Heart Rate Pre-Dialysis 102 BPM Sitting Heart Rate Post-Dialysis 99 BPM Standing Heart Rate Pre-Dialysis 86 BPM Standing Heart Rate Post-Dialysis 99 BPM Temperature Pre-Dialysis 98.3 degF Temperature Post -Dialysis 98.7 degF August 16, 2024 In-Center Hemodialysis Treatment [id number]:25:19.000Z 1399-26-61I17:55:19.000Z BP Sitting (Pre-Dialysis) 186/111 mmHg BP Sitting (Post-Dialysis) 149/100 mmHg Concurrent Access: falseAV Fistula Forearm (Left) Arterial BP Standing (Pre-Dialysis) 183/102 mmHg BP Standing (P ost-Dialysis) 158/110 mmHg Sitting Heart Rate Pre-Dialysis 108 BPM Sitting Heart Rate Post-Dialysis 94 BPM Standing Heart Rate Pre-Dialysis 92 BPM Standing Heart Rate Post-Dialysis 120 BPM Temperature Pre-Dialysis 97.6 degF Temperature Post -Dialysis 98.1 degF August 15, 2024 In-Center Hemodialysis Treatment [id number]:46:21.000Z 5138-87-55R78:28:08.000Z BP Sitting (Pre-Dialysis) 188/132 mmHg BP Sitting (Post-Dialysis) 110/96 mmHg Concurrent Access: falseAV Fistula Forearm (Left) Arterial BP Standing (Pre-Dialysis) 177/117 mmHg BP Standing (P ost-Dialysis) 119/99 mmHg Sitting Heart Rate Pre-Dialysis 102 BPM Sitting Heart Rate Post-Dialysis 111 BPM Standing Heart Rate Pre-Dialysis 109 BPM Standing Heart Rate Post-Dialysis 108 BPM Temperature Pre-Dialysis 97.6 degF Temperature Post -Dialysis 97.9 degF August 10, 2024 In-Center Hemodialysis Treatment 6819-77-77U04:12:02.000Z 6350-56-43W57:48:42.000Z BP Sitting (Pre-Dialysis) 162/101 mmHg BP Sitting (Post-Dialysis) 107/54 mmHg Concurrent Access: falseAV Fistula Forearm (Left) Arterial Sitting Heart Rate Pre-Dialysis 91 BPM BP Standi ng (Post-Dialysis) 139/90 mmHg Temperature Pre-Dialysis 98 degF Sitting Heart Ra te Post-Dialysis 80 BPM Standing Heart Rate Post-Nusrat lysis 99 BPM Temperature Post-Dialysis 97 .3 degF August 08, 2024 In-Center Hemodialysis Treatment [id number]:00:00.000Z 8780-82-18I92:02:43.000Z BP Sitting (Pre-Dialysis) 171/105 mmHg BP Sitting (Post-Dialysis) 132/105 mmHg Concurrent Access: falseAV Fistula Forearm (Left) Arterial Sitting Heart Rate Pre-Dialysis 103 BPM BP Standing (Post-Dialysis) 163/104 mmHg Temperature Pre-Dialysis 98.1 degF Sitting Heart Ra te Post-Dialysis 113 BPM Standing Heart R ate Post-Dialysis 120 BPM Temperature Post-Dialysis 98 .1 degF August 06, 2024 In-Center Hemodialysis Treatment [id number]:42:00.000Z 8621-87-25X43:10:36.000Z BP Sitting (Pre-Dialysis) 172/130 mmHg BP Sitting (Post-Dialysis) 165/125 mmHg Concurrent Access: falseAV Fistula Forearm (Left) Arterial BP Standing (Pre-Dialysis) 179/117 mmHg Sitti ng Heart Rate Post-Dialysis 104 BPM Sitting Heart Rate Pre-Dialysis 98 BPM Temperatu re Post-Dialysis 98.4 degF Standing Heart Rate Pre-Dialysis 87 BPM Temperature Pre-Dialysis 98.1 degF August 03, 2024 In-Center Hemodialysis Treatment [id number]:49:35.000Z [id number]:20:35.000Z BP Sitting (Pre-Dialysis) 172/107 mmHg BP Sitting (Post-Dialysis) 165/101 mmHg Concurrent Access: falseAV Fistula Forearm (Left) Arterial BP Standing (Pre-Dialysis) 164/109 mmHg BP Standing (P ost-Dialysis) 138/107 mmHg Sitting Heart Rate Pre-Dialysis 99 BPM Sitting Heart Rate Post-Dialysis 92 BPM Standing Heart Rate Pre-Dialysis 104 BPM Standing Heart Rate Post-Dialysis 100 BPM Temperature Pre-Dialysis 98.3 degF Temperature Post -Dialysis 97.3 degF August 01, 2024 In-Center Hemodialysis Treatment [id number]:02:00.000Z 8106-40-12G88:30:31.000Z BP Sitting (Pre-Dialysis) 167/102 mmHg BP Sitting (Post-Dialysis) 115/69 mmHg Concurrent Access: falseAV Fistula Forearm (Left) Arterial BP Standing (Pre-Dialysis) 161/110 mmHg BP Standing (P ost-Dialysis) 159/101 mmHg Sitting Heart Rate Pre-Dialysis 82 BPM Sitting Heart Rate Post-Dialysis 90 BPM Standing Heart Rate Pre-Dialysis 96 BPM Standing Heart Rate Post-Dialysis 90 BPM Temperature Pre-Dialysis 97.9 degF Temperature Post -Dialysis 97.6 degF July 30, 2024 In-Center Hemodialysis Treatment [id number]:42:20.000Z [id number]:16:51.000Z BP Sitting (Pre-Dialysis) 184/120 mmHg BP Sitting (Post-Dialysis) 130/106 mmHg Concurrent Access: falseAV Fistula Forearm (Left) Arterial BP Standing (Pre-Dialysis) 178/121 mmHg BP Standing (P ost-Dialysis) 107/77 mmHg Sitting Heart Rate Pre-Dialysis 89 BPM Sitting Heart Rate Post-Dialysis 82 BPM Standing Heart Rate Pre-Dialysis 92 BPM Standing Heart Rate Post-Dialysis 87 BPM Temperature Pre-Dialysis 98.1 degF Temperature Post -Dialysis 98.4 degF July 27, 2024 In-Center Hemodialysis Treatment [id number]:45:00.000Z 9162-29-57X83:44:14.000Z BP Sitting (Pre-Dialysis) 176/132 mmHg BP Sitting (Post-Dialysis) 158/99 mmHg Concurrent Access: falseAV Fistula Forearm (Left) Arterial Sitting Heart Rate Pre-Dialysis 103 BPM BP Standing (Post-Dialysis) 162/101 mmHg Temperature Pre-Dialysis 98.1 degF Sitting Heart Ra te Post-Dialysis 88 BPM Standing Heart R ate Post-Dialysis 102 BPM Temperature Post-Dialysis 98 .3 degF July 25, 2024 In-Center Hemodialysis Treatment [id number]:18:00.000Z [id number]:49:53.000Z BP Sitting (Pre-Dialysis) 131/75 mmHg BP Sitting (Post-Dialysis) 128/94 mmHg Concurrent Access: falseAV Fistula Forearm (Left) Arterial Sitting Heart Rate Pre-Dialysis 91 BPM BP Standing (Post-Dialysis) 149/98 mmHg Temperature Pre-Dialysis 98.1 degF Sitting Heart Ra te Post-Dialysis 80 BPM Standing Heart Rate Post-Nusrat lysis 95 BPM Temperature Post-Dialysis 98 .1 degF July 20, 2024 In-Center Hemodialysis Treatment [id number]:05:41.000Z 1266-79-41S49:38:19.000Z BP Sitting (Pre-Dialysis) 186/106 mmHg BP Sitting (Post-Dialysis) 145/85 mmHg Concurrent Access: falseAV Fistula Forearm (Left) Arterial BP Standing (Pre-Dialysis) 153/107 mmHg BP Standing (P ost-Dialysis) 122/96 mmHg Sitting Heart Rate Pre-Dialysis 93 BPM Sitting Heart Rate Post-Dialysis 93 BPM Standing Heart Rate Pre-Dialysis 108 BPM Standing Heart Rate Post-Dialysis 95 BPM Temperature Pre-Dialysis 98.3 degF Temperature Post -Dialysis 98.3 degF July 18, 2024 In-Center Hemodialysis Treatment [id number]:22:16.000Z [id number]:33:56.000Z BP Sitting (Pre-Dialysis) 100/85 mmHg BP Sitting (Post-Dialysis) 180/158 mmHg Concurrent Access: falseAV Fistula Forearm (Left) Arterial Sitting Heart Rate Pre-Dialysis 102 BPM BP Standing (Post-Dialysis) 140/93 mmHg Temperature Pre-Dialysis 97.9 degF Sitting Heart Ra te Post-Dialysis 95 BPM Standing Heart Rate Post-Nusrat lysis 120 BPM Temperature Post-Dialysis 97 .8 degF July 16, 2024 In-Center Hemodialysis Treatment [id number]:21:46.000Z [id number]:51:32.000Z BP Sitting (Pre-Dialysis) 199/126 mmHg BP Sitting (Post-Dialysis) 117/85 mmHg Concurrent Access: falseAV Fistula Forearm (Left) Arterial BP Standing (Pre-Dialysis) 190/123 mmHg BP Standing (P ost-Dialysis) 159/82 mmHg Sitting Heart Rate Pre-Dialysis 96 BPM Sitting Heart Rate Post-Dialysis 104 BPM Standing Heart Rate Pre-Dialysis 104 BPM Standing Heart Rate Post-Dialysis 138 BPM Temperature Pre-Dialysis 98.3 degF Temperature Post -Dialysis 97.7 degF July 13, 2024 In-Center Hemodialysis Treatment 9525-58-13O58:04:33.000Z 1633-62-93H06:35:29.000Z BP Sitting (Pre-Dialysis) 122/95 mmHg BP Sitting (Post-Dialysis) 177/117 mmHg Concurrent Access: falseAV Fistula Forearm (Left) Arterial BP Standing (Pre-Dialysis) 106/95 mmHg BP Standing (P ost-Dialysis) 124/93 mmHg Sitting Heart Rate Pre-Dialysis 87 BPM Sitting Heart Rate Post-Dialysis 96 BPM Standing Heart Rate Pre-Dialysis 87 BPM Standing Heart Rate Post-Dialysis 113 BPM Temperature Pre-Dialysis 98.3 degF Temperature Post -Dialysis 97.1 degF July 11, 2024 In-Center Hemodialysis Treatment [id number]:04:18.000Z [id number]:25:39.000Z BP Sitting (Pre-Dialysis) 134/105 mmHg BP Sitting (Post-Dialysis) 164/96 mmHg Concurrent Access: falseAV Fistula Forearm (Left) Arterial BP Standing (Pre-Dialysis) 125/87 mmHg Sitting Heart Rate Post-Dialysis 113 BPM Sitting Heart Rate Pre-Dialysis 73 BPM Standing Heart Rate Pre-Dialysis 100 BPM Temperature Pre-Dialysis 97.9 degF July 09, 2024 In-Center Hemodialysis Treatment [id number]:19:13.000Z 6692-21-32K40:48:39.000Z BP Sitting (Pre-Dialysis) 191/129 mmHg BP Sitting (Post-Dialysis) 158/120 mmHg Concurrent Access: falseAV Fistula Forearm (Left) Arterial BP Standing (Pre-Dialysis) 169/124 mmHg BP Standing (P ost-Dialysis) 156/101 mmHg Sitting Heart Rate Pre-Dialysis 87 BPM Sitting Heart Rate Post-Dialysis 96 BPM Standing Heart Rate Pre-Dialysis 87 BPM Standing Heart Rate Post-Dialysis 101 BPM Temperature Pre-Dialysis 98 degF Temperature Post -Dialysis 98.1 degF July 06, 2024 In-Center Hemodialysis Treatment [id number]:02:34.000Z 9897-07-14W07:36:30.000Z BP Sitting (Pre-Dialysis) 192/117 mmHg BP Sitting (Post-Dialysis) 188/87 mmHg Concurrent Access: falseAV Fistula Forearm (Left) Arterial BP Standing (Pre-Dialysis) 161/110 mmHg Sitti ng Heart Rate Post-Dialysis 70 BPM Sitting Heart Rate Pre-Dialysis 97 BPM Temperatu re Post-Dialysis 97.6 degF Standing Heart Rate Pre-Dialysis 120 BPM Temperature Pre-Dialysis 98.6 degF July 04, 2024 In-Center Hemodialysis Treatment [id number]:50:18.000Z 2956-62-87D44:21:13.000Z BP Sitting (Pre-Dialysis) 97/65 mmHg BP Sitting (Post-Dialysis) 154/110 mmHg Concurrent Access: falseAV Fistula Forearm (Left) Arterial BP Standing (Pre-Dialysis) 165/109 mmHg Sitti ng Heart Rate Post-Dialysis 105 BPM Sitting Heart Rate Pre-Dialysis 106 BPM Temperatu re Post-Dialysis 97.1 degF Standing Heart Rate Pre-Dialysis 105 BPM Temperature Pre-Dialysis 98 degF July 02, 2024 In-Center Hemodialysis Treatment [id number]:12:41.000Z 4915-16-86F21:47:56.000Z BP Sitting (Pre-Dialysis) 135/105 mmHg BP Sitting (Post-Dialysis) 142/96 mmHg Concurrent Access: falseAV Fistula Forearm (Left) Arterial BP Standing (Pre-Dialysis) 135/105 mmHg BP Standing (P ost-Dialysis) 110/96 mmHg Sitting Heart Rate Pre-Dialysis 96 BPM Sitting Heart Rate Post-Dialysis 92 BPM Standing Heart Rate Pre-Dialysis 93 BPM Standing Heart Rate Post-Dialysis 92 BPM Temperature Pre-Dialysis 98.3 degF Temperature Post -Dialysis 98.1 degF June 29, 2024 In-Center Hemodialysis Treatment 4430-04-93I02:19:48.000Z 4184-27-89M56:53:03.000Z BP Sitting (Pre-Dialysis) 172/95 mmHg BP Sitting (Post-Dialysis) 177/79 mmHg Concurrent Access: falseAV Fistula Forearm (Left) Arterial BP Standing (Pre-Dialysis) 160/110 mmHg Sitti ng Heart Rate Post-Dialysis 91 BPM Sitting Heart Rate Pre-Dialysis 96 BPM Temperatu re Post-Dialysis 97.8 degF Standing Heart Rate Pre-Dialysis 93 BPM Temperature Pre-Dialysis 98.5 degF June 27, 2024 In-Center Hemodialysis Treatment [id number]:18:20.000Z 3483-09-86E67:54:55.000Z BP Sitting (Pre-Dialysis) 164/115 mmHg BP Sitting (Post-Dialysis) 132/97 mmHg Concurrent Access: falseAV Fistula Forearm (Left) Arterial BP Standing (Pre-Dialysis) 141/97 mmHg BP Standing (P ost-Dialysis) 108/88 mmHg Sitting Heart Rate Pre-Dialysis 80 BPM Sitting Heart Rate Post-Dialysis 120 BPM Standing Heart Rate Pre-Dialysis 102 BPM Standing Heart Rate Post-Dialysis 136 BPM Temperature Pre-Dialysis 97.6 degF Temperature Post -Dialysis 98.1 degF June 25, 2024 In-Center Hemodialysis Treatment [id number]:11:24.000Z 0491-74-80H40:40:00.000Z BP Sitting (Pre-Dialysis) 148/120 mmHg BP Sitting (Post-Dialysis) 159/98 mmHg Concurrent Access: falseAV Fistula Forearm (Left) Arterial BP Standing (Pre-Dialysis) 159/115 mmHg Sitti ng Heart Rate Post-Dialysis 80 BPM Sitting Heart Rate Pre-Dialysis 91 BPM Temperatu re Post-Dialysis 98.1 degF Standing Heart Rate Pre-Dialysis 96 BPM Temperature Pre-Dialysis 98.1 degF June 22, 2024 In-Center Hemodialysis Treatment 5517-79-73N02:14:47.000Z 5036-99-33L49:57:32.000Z BP Sitting (Pre-Dialysis) 159/104 mmHg BP Sitting (Post-Dialysis) 161/96 mmHg Concurrent Access: falseAV Fistula Forearm (Left) Arterial BP Standing (Pre-Dialysis) 148/101 mmHg BP Standing (P ost-Dialysis) 140/96 mmHg Sitting Heart Rate Pre-Dialysis 91 BPM Sitting Heart Rate Post-Dialysis 94 BPM Standing Heart Rate Pre-Dialysis 101 BPM Standing Heart Rate Post-Dialysis 94 BPM Temperature Pre-Dialysis 97.4 degF Temperature Post -Dialysis 97.1 degF June 20, 2024 In-Center Hemodialysis Treatment [id number]:09:09.000Z 6192-69-45W39:33:27.000Z BP Sitting (Pre-Dialysis) 162/107 mmHg BP Sitting (Post-Dialysis) 153/103 mmHg Concurrent Access: falseAV Fistula Forearm (Left) Arterial BP Standing (Pre-Dialysis) 163/97 mmHg BP Standing (P ost-Dialysis) 117/81 mmHg Sitting Heart Rate Pre-Dialysis 81 BPM Sitting Heart Rate Post-Dialysis 102 BPM Standing Heart Rate Pre-Dialysis 80 BPM Standing Heart Rate Post-Dialysis 108 BPM Temperature Pre-Dialysis 98.4 degF Temperature Post -Dialysis 97.3 degF June 18, 2024 In-Center Hemodialysis Treatment [id number]:07:16.000Z 8988-13-38R05:41:42.000Z BP Sitting (Pre-Dialysis) 176/105 mmHg BP Sitting (Post-Dialysis) 125/83 mmHg Concurrent Access: falseAV Fistula Forearm (Left) Arterial BP Standing (Pre-Dialysis) 176/105 mmHg BP Standing (P ost-Dialysis) 125/96 mmHg Sitting Heart Rate Pre-Dialysis 95 BPM Sitting Heart Rate Post-Dialysis 107 BPM Standing Heart Rate Pre-Dialysis 95 BPM Standing Heart Rate Post-Dialysis 62 BPM Temperature Pre-Dialysis 98.3 degF Temperature Post -Dialysis 98.7 degF June 16, 2024 In-Center Hemodialysis Treatment [id number]:22:05.000Z 6863-83-31Z80:56:35.000Z BP Sitting (Pre-Dialysis) 169/100 mmHg BP Sitting (Post-Dialysis) 140/92 mmHg Concurrent Access: falseAV Fistula Forearm (Left) Arterial BP Standing (Pre-Dialysis) 128/80 mmHg Sitti ng Heart Rate Post-Dialysis 102 BPM Sitting Heart Rate Pre-Dialysis 92 BPM Temperatu re Post-Dialysis 97.5 degF Standing Heart Rate Pre-Dialysis 99 BPM Temperature Pre-Dialysis 97.4 degF June 15, 2024 In-Center Hemodialysis Treatment 0128-70-62B56:04:00.000Z 0410-29-42C23:33:00.000Z BP Sitting (Pre-Dialysis) 160/105 mmHg BP Sitting (Post-Dialysis) 167/107 mmHg Concurrent Access: falseAV Fistula Forearm (Left) Arterial BP Standing (Pre-Dialysis) 136/70 mmHg BP Standing (P ost-Dialysis) 147/92 mmHg Sitting Heart Rate Pre-Dialysis 104 BPM Sitting Heart Rate Post-Dialysis 80 BPM Standing Heart Rate Pre-Dialysis 71 BPM Standing Heart Rate Post-Dialysis 106 BPM Temperature Pre-Dialysis 97.3 degF June 13, 2024 In-Center Hemodialysis Treatment [id number]:04:52.000Z 3292-42-88C85:33:34.000Z BP Sitting (Pre-Dialysis) 177/116 mmHg BP Sitting (Post-Dialysis) 136/102 mmHg Concurrent Access: falseAV Fistula Forearm (Left) Arterial BP Standing (Pre-Dialysis) 118/81 mmHg BP Standing (P ost-Dialysis) 139/99 mmHg Sitting Heart Rate Pre-Dialysis 91 BPM Sitting Heart Rate Post-Dialysis 90 BPM Standing Heart Rate Pre-Dialysis 108 BPM Standing Heart Rate Post-Dialysis 99 BPM Temperature Pre-Dialysis 97.6 degF Temperature Post -Dialysis 97.6 degF June 08, 2024 In-Center Hemodialysis Treatment 2789-29-95E80:00:00.000Z 6187-15-92N09:27:00.000Z BP Sitting (Pre-Dialysis) 183/129 mmHg BP Sitting (Post-Dialysis) 160/109 mmHg Concurrent Access: falseAV Fistula Forearm (Left) Arterial BP Standing (Pre-Dialysis) 161/116 mmHg BP Standing (P ost-Dialysis) 109/77 mmHg Sitting Heart Rate Pre-Dialysis 93 BPM Sitting Heart Rate Post-Dialysis 96 BPM Standing Heart Rate Pre-Dialysis 93 BPM Standing Heart Rate Post-Dialysis 97 BPM Temperature Pre-Dialysis 98.1 degF Temperature Post -Dialysis 98.1 degF June 06, 2024 In-Center Hemodialysis Treatment 6742-47-02F65:32:00.000Z 8104-93-38L16:08:56.000Z BP Sitting (Pre-Dialysis) 156/111 mmHg BP Sitting (Post-Dialysis) 119/92 mmHg Concurrent Access: falseAV Fistula Forearm (Left) Arterial BP Standing (Pre-Dialysis) 171/119 mmHg BP Standing (P ost-Dialysis) 106/90 mmHg Sitting Heart Rate Pre-Dialysis 85 BPM Sitting Heart Rate Post-Dialysis 97 BPM Standing Heart Rate Pre-Dialysis 85 BPM Standing Heart Rate Post-Dialysis 94 BPM Temperature Pre-Dialysis 97.6 degF Temperature Post -Dialysis 97.3 degF June 04, 2024 In-Center Hemodialysis Treatment [id number]:22:11.000Z 1331-55-33F86:01:14.000Z BP Sitting (Pre-Dialysis) 117/69 mmHg BP Sitting (Post-Dialysis) 156/102 mmHg Concurrent Access: falseAV Fistula Forearm (Left) Arterial BP Standing (Pre-Dialysis) 117/69 mmHg BP Standing (P ost-Dialysis) 167/97 mmHg Sitting Heart Rate Pre-Dialysis 86 BPM Sitting Heart Rate Post-Dialysis 112 BPM Standing Heart Rate Pre-Dialysis 98 BPM Standing Heart Rate Post-Dialysis 105 BPM Temperature Pre-Dialysis 98.3 degF Temperature Post -Dialysis 98.6 degF June 02, 2024 In-Center Hemodialysis Treatment 450 mL/min 800 mL/min Concurrent Access: false June 01, 2024 In-Center Hemodialysis Treatment 25 -0 2- 21 T1 5: 03 :3 1. 00 0Z 20 25 -0 2- 21 T1 8: 45 :3 5. 00 0Z BP Sitting (Pre-Dial ysis) 159/11 0 mmHg BP Sitting (Post-Nusrat lysis) 101/66 mmHg Concurrent Access: falseAV Fistula Forearm (Left) Arterial BP Standing (Pre-Dialysis) 154/82 mmHg BP Standing (P ost-Dialysis) 145/85 mmHg Sitting Heart Rate Pre-Dialysis 80 BPM Sitting Heart Rate Post-Dialysis 92 BPM Standing Heart Rate Pre-Dialysis 127 BPM Standing Heart Rate Post-Dialysis 92 BPM Temperature Pre-Dialysis 98.1 degF Temperature Post -Dialysis 98.3 degF May 29, 2024 In-Center Hemodialysis Treatment 4355-41-12C48:15:00.000Z 3672-33-95U48:50:01.000Z BP Sitting (Pre-Dialysis) 156/102 mmHg BP Sitting (Post-Dialysis) 116/80 mmHg Concurrent Access: falseAV Fistula Forearm (Left) Arterial BP Standing (Pre-Dialysis) 110/83 mmHg BP Standing (P ost-Dialysis) 115/91 mmHg Sitting Heart Rate Pre-Dialysis 86 BPM Sitting Heart Rate Post-Dialysis 104 BPM Standing Heart Rate Pre-Dialysis 88 BPM Standing Heart Rate Post-Dialysis 104 BPM Temperature Pre-Dialysis 98 degF Temperature Post -Dialysis 98 degF May 25, 2024 In-Center Hemodialysis Treatment 5528-83-83Q29:08:00.000Z 0227-59-74B21:42:23.000Z BP Sitting (Pre-Dialysis) 142/100 mmHg BP Sitting (Post-Dialysis) 129/95 mmHg Concurrent Access: falseAV Fistula Forearm (Left) Arterial BP Standing (Pre-Dialysis) 161/82 mmHg BP Standing (P ost-Dialysis) 110/73 mmHg Sitting Heart Rate Pre-Dialysis 89 BPM Sitting Heart Rate Post-Dialysis 80 BPM Standing Heart Rate Pre-Dialysis 89 BPM Standing Heart Rate Post-Dialysis 120 BPM Temperature Pre-Dialysis 98.1 degF Temperature Post -Dialysis 98 degF May 23, 2024 In-Center Hemodialysis Treatment 9580-39-89M77:30:18.000Z 0675-60-16S86:01:09.000Z BP Sitting (Pre-Dialysis) 112/85 mmHg BP Sitting (Post-Dialysis) 123/96 mmHg Concurrent Access: falseAV Fistula Forearm (Left) Arterial BP Standing (Pre-Dialysis) 122/102 mmHg BP Standing (P ost-Dialysis) 100/49 mmHg Sitting Heart Rate Pre-Dialysis 148 BPM Sitting Heart Rate Post-Dialysis 82 BPM Standing Heart Rate Pre-Dialysis 85 BPM Standing Heart Rate Post-Dialysis 66 BPM Temperature Pre-Dialysis 98 degF Temperature Post -Dialysis 98 degF May 21, 2024 In-Center Hemodialysis Treatment 7033-39-82H76:11:27.000Z 5219-24-21I19:43:52.000Z BP Sitting (Pre-Dialysis) 162/109 mmHg BP Sitting (Post-Dialysis) 151/90 mmHg Concurrent Access: falseAV Fistula Forearm (Left) Arterial BP Standing (Pre-Dialysis) 158/106 mmHg Sitti ng Heart Rate Post-Dialysis 96 BPM Sitting Heart Rate Pre-Dialysis 93 BPM Temperatu re Post-Dialysis 98.6 degF Standing Heart Rate Pre-Dialysis 96 BPM Temperature Pre-Dialysis 98.6 degF May 18, 2024 In-Center Hemodialysis Treatment 6179-95-89Y46:08:02.000Z 1696-60-31C89:39:03.000Z BP Sitting (Pre-Dialysis) 164/103 mmHg BP Sitting (Post-Dialysis) 156/106 mmHg Concurrent Access: falseAV Fistula Forearm (Left) Arterial BP Standing (Pre-Dialysis) 168/102 mmHg BP Standing (P ost-Dialysis) 153/91 mmHg Sitting Heart Rate Pre-Dialysis 104 BPM Sitting Heart Rate Post-Dialysis 87 BPM Standing Heart Rate Pre-Dialysis 103 BPM Standing Heart Rate Post-Dialysis 125 BPM Temperature Pre-Dialysis 98.6 degF Temperature Post -Dialysis 98 degF May 16, 2024 In-Center Hemodialysis Treatment [id number]:16:24.000Z 7239-48-45P11:48:08.000Z BP Sitting (Pre-Dialysis) 144/116 mmHg BP Sitting (Post-Dialysis) 105/86 mmHg Concurrent Access: falseAV Fistula Forearm (Left) Arterial BP Standing (Pre-Dialysis) 183/129 mmHg Sitti ng Heart Rate Post-Dialysis 107 BPM Sitting Heart Rate Pre-Dialysis 98 BPM Temperatu re Post-Dialysis 97.9 degF Standing Heart Rate Pre-Dialysis 94 BPM Temperature Pre-Dialysis 98 degF May 14, 2024 In-Center Hemodialysis Treatment 5942-36-62X38:00:00.000Z 9360-74-76E85:10:18.000Z BP Sitting (Pre-Dialysis) 166/113 mmHg BP Sitting (Post-Dialysis) 148/98 mmHg Concurrent Access: falseAV Fistula Forearm (Left) Arterial BP Standing (Pre-Dialysis) 175/110 mmHg BP Standing (P ost-Dialysis) 129/98 mmHg Sitting Heart Rate Pre-Dialysis 82 BPM Sitting Heart Rate Post-Dialysis 101 BPM Standing Heart Rate Pre-Dialysis 80 BPM Standing Heart Rate Post-Dialysis 84 BPM Temperature Pre-Dialysis 98.2 degF Temperature Post -Dialysis 98.9 degF May 11, 2024 In-Center Hemodialysis Treatment 9602-40-30G37:13:00.000Z 9644-99-84B02:53:51.000Z BP Sitting (Pre-Dialysis) 122/79 mmHg BP Sitting (Post-Dialysis) 130/84 mmHg Concurrent Access: falseAV Fistula Forearm (Left) Arterial BP Standing (Pre-Dialysis) 135/99 mmHg BP Standing (P ost-Dialysis) 149/72 mmHg Sitting Heart Rate Pre-Dialysis 93 BPM Sitting Heart Rate Post-Dialysis 80 BPM Standing Heart Rate Pre-Dialysis 66 BPM Standing Heart Rate Post-Dialysis 70 BPM Temperature Pre-Dialysis 97.3 degF Temperature Post -Dialysis 98.9 degF May 09, 2024 In-Center Hemodialysis Treatment 0593-98-02X28:56:00.000Z 5829-77-62L37:31:49.000Z BP Sitting (Pre-Dialysis) 115/88 mmHg BP Sitting (Post-Dialysis) 154/71 mmHg Concurrent Access: falseAV Fistula Forearm (Left) Arterial BP Standing (Pre-Dialysis) 167/97 mmHg BP Standing (P ost-Dialysis) 132/92 mmHg Sitting Heart Rate Pre-Dialysis 105 BPM Sitting Heart Rate Post-Dialysis 96 BPM Standing Heart Rate Pre-Dialysis 105 BPM Standing Heart Rate Post-Dialysis 98 BPM Temperature Pre-Dialysis 98.6 degF Temperature Post -Dialysis 97.3 degF May 07, 2024 In-Center Hemodialysis Treatment 0377-88-24P69:12:37.000Z 6605-97-54P43:50:06.000Z BP Sitting (Pre-Dialysis) 170/116 mmHg BP Sitting (Post-Dialysis) 150/106 mmHg Concurrent Access: falseAV Fistula Forearm (Left) Arterial BP Standing (Pre-Dialysis) 188/143 mmHg Sitti ng Heart Rate Post-Dialysis 85 BPM Sitting Heart Rate Pre-Dialysis 80 BPM Temperatu re Post-Dialysis 97.9 degF Standing Heart Rate Pre-Dialysis 92 BPM Temperature Pre-Dialysis 98.7 degF May 02, 2024 In-Center Hemodialysis Treatment 7744-69-58Z32:15:02.000Z 2293-24-88W63:50:13.000Z BP Sitting (Pre-Dialysis) 171/105 mmHg BP Sitting (Post-Dialysis) 149/91 mmHg Concurrent Access: falseAV Fistula Forearm (Left) Arterial BP Standing (Pre-Dialysis) 171/105 mmHg BP Standing (P ost-Dialysis) 103/76 mmHg Sitting Heart Rate Pre-Dialysis 95 BPM Sitting Heart Rate Post-Dialysis 95 BPM Standing Heart Rate Pre-Dialysis 95 BPM Standing Heart Rate Post-Dialysis 103 BPM Temperature Pre-Dialysis 98 degF Temperature Post -Dialysis 98 degF April 30, 2024 In-Center Hemodialysis Treatment 5365-17-52H43:27:00.000Z 5052-32-58X59:08:29.000Z BP Sitting (Pre-Dialysis) 157/104 mmHg BP Sitting (Post-Dialysis) 149/98 mmHg Concurrent Access: falseAV Fistula Forearm (Left) Arterial BP Standing (Pre-Dialysis) 147/99 mmHg BP Standing (P ost-Dialysis) 148/98 mmHg Sitting Heart Rate Pre-Dialysis 82 BPM Sitting Heart Rate Post-Dialysis 72 BPM Standing Heart Rate Pre-Dialysis 88 BPM Standing Heart Rate Post-Dialysis 77 BPM Temperature Pre-Dialysis 98.3 degF Temperature Post -Dialysis 98.3 degF April 27, 2024 In-Center Hemodialysis Treatment 9418-45-55Y85:17:00.000Z 8961-23-16M57:27:14.000Z BP Sitting (Pre-Dialysis) 167/112 mmHg BP Sitting (Post-Dialysis) 151/99 mmHg Concurrent Access: falseAV Fistula Forearm (Left) Arterial BP Standing (Pre-Dialysis) 167/110 mmHg Sitti ng Heart Rate Post-Dialysis 108 BPM Sitting Heart Rate Pre-Dialysis 80 BPM Temperatu re Post-Dialysis 98 degF Standing Heart Rate Pre-Dialysis 80 BPM Temperature Pre-Dialysis 98.7 degF April 25, 2024 In-Center Hemodialysis Treatment 8077-72-45M14:40:00.000Z 0576-55-88W98:11:12.000Z BP Sitting (Pre-Dialysis) 158/75 mmHg BP Sitting (Post-Dialysis) 114/90 mmHg Concurrent Access: falseAV Fistula Forearm (Left) Arterial BP Standing (Pre-Dialysis) 118/84 mmHg BP Standing (P ost-Dialysis) 165/99 mmHg Sitting Heart Rate Pre-Dialysis 60 BPM Sitting Heart Rate Post-Dialysis 90 BPM Standing Heart Rate Pre-Dialysis 113 BPM Standing Heart Rate Post-Dialysis 100 BPM Temperature Pre-Dialysis 97.3 degF Temperature Post -Dialysis 97.6 degF April 24, 2024 Additional Day Of Dialysis Treatment 5044-39-18C22:04:00.000Z 7072-19-55N07:43:15.000Z BP Sitting (Pre-Dialysis) 171/118 mmHg BP Sitting (Post-Dialysis) 163/107 mmHg Concurrent Access: falseAV Fistula Forearm (Left) Arterial BP Standing (Pre-Dialysis) 108/75 mmHg BP Standing (P ost-Dialysis) 102/83 mmHg Sitting Heart Rate Pre-Dialysis 105 BPM Sitting Heart Rate Post-Dialysis 102 BPM Standing Heart Rate Pre-Dialysis 113 BPM Standing Heart Rate Post-Dialysis 150 BPM Temperature Pre-Dialysis 98.3 degF Temperature Post -Dialysis 98.3 degF April 23, 2024 In-Center Hemodialysis Treatment 0380-26-40N94:10:00.000Z 4687-21-50X09:28:26.000Z BP Sitting (Pre-Dialysis) 163/107 mmHg BP Sitting (Post-Dialysis) 118/94 mmHg Concurrent Access: falseAV Fistula Forearm (Left) Arterial BP Standing (Pre-Dialysis) 141/107 mmHg BP Standing (P ost-Dialysis) 118/94 mmHg Sitting Heart Rate Pre-Dialysis 103 BPM Sitting Heart Rate Post-Dialysis 80 BPM Standing Heart Rate Pre-Dialysis 103 BPM Standing Heart Rate Post-Dialysis 80 BPM Temperature Pre-Dialysis 98.3 degF Temperature Post -Dialysis 98.3 degF April 21, 2024 In-Center Hemodialysis Treatment 3049-54-22B47:23:34.000Z 9931-08-81C22:56:05.000Z BP Sitting (Pre-Dialysis) 105/72 mmHg BP Sitting (Post-Dialysis) 147/103 mmHg Concurrent Access: falseAV Fistula Forearm (Left) Arterial BP Standing (Pre-Dialysis) 147/107 mmHg BP Standing (P ost-Dialysis) 125/104 mmHg Sitting Heart Rate Pre-Dialysis 80 BPM Sitting Heart Rate Post-Dialysis 80 BPM Standing Heart Rate Pre-Dialysis 111 BPM Standing Heart Rate Post-Dialysis 106 BPM Temperature Pre-Dialysis 97.3 degF Temperature Post -Dialysis 97.3 degF April 20, 2024 In-Center Hemodialysis Treatment 1980-69-07C29:45:43.000Z 2395-94-30L80:03:20.000Z BP Sitting (Pre-Dialysis) 144/106 mmHg BP Sitting (Post-Dialysis) 132/97 mmHg Concurrent Access: falseAV Fistula Forearm (Left) Arterial BP Standing (Pre-Dialysis) 147/99 mmHg BP Standing (P ost-Dialysis) 145/98 mmHg Sitting Heart Rate Pre-Dialysis 103 BPM Sitting Heart Rate Post-Dialysis 108 BPM Standing Heart Rate Pre-Dialysis 105 BPM Standing Heart Rate Post-Dialysis 62 BPM Temperature Pre-Dialysis 98.3 degF Temperature Post -Dialysis 97.3 degF April 19, 2024 In-Center Hemodialysis Treatment 8675-95-01E07:51:00.000Z 3639-14-17G41:36:00.000Z BP Sitting (Pre-Dialysis) 170/104 mmHg BP Sitting (Post-Dialysis) 147/94 mmHg Concurrent Access: falseAV Fistula Forearm (Left) Arterial BP Standing (Pre-Dialysis) 156/110 mmHg BP Standing (P ost-Dialysis) 136/95 mmHg Sitting Heart Rate Pre-Dialysis 80 BPM Sitting Heart Rate Post-Dialysis 80 BPM Standing Heart Rate Pre-Dialysis 86 BPM Standing Heart Rate Post-Dialysis 101 BPM Temperature Pre-Dialysis 98 degF Temperature Post -Dialysis 98 degF April 13, 2024 In-Center Hemodialysis Treatment 9593-27-37L31:17:02.000Z 3449-48-49U65:55:38.000Z BP Sitting (Pre-Dialysis) 178/117 mmHg BP Sitting (Post-Dialysis) 107/89 mmHg Concurrent Access: falseAV Fistula Forearm (Left) Arterial BP Standing (Pre-Dialysis) 165/117 mmHg BP Standing (P ost-Dialysis) 107/89 mmHg Sitting Heart Rate Pre-Dialysis 89 BPM Sitting Heart Rate Post-Dialysis 91 BPM Standing Heart Rate Pre-Dialysis 96 BPM Standing Heart Rate Post-Dialysis 110 BPM Temperature Pre-Dialysis 97.7 degF Temperature Post -Dialysis 98 degF April 11, 2024 In-Center Hemodialysis Treatment 1176-51-74J61:11:58.000Z 3349-38-82X43:44:14.000Z BP Sitting (Pre-Dialysis) 164/121 mmHg BP Sitting (Post-Dialysis) 159/97 mmHg Concurrent Access: falseAV Fistula Forearm (Left) Arterial BP Standing (Pre-Dialysis) 183/120 mmHg BP Standing (P ost-Dialysis) 122/99 mmHg Sitting Heart Rate Pre-Dialysis 80 BPM Sitting Heart Rate Post-Dialysis 92 BPM Standing Heart Rate Pre-Dialysis 80 BPM Standing Heart Rate Post-Dialysis 129 BPM Temperature Pre-Dialysis 97.9 degF Temperature Post -Dialysis 97.3 degF April 09, 2024 In-Center Hemodialysis Treatment 7607-34-92H85:14:00.000Z 6930-56-83X70:55:08.000Z BP Sitting (Pre-Dialysis) 187/124 mmHg BP Sitting (Post-Dialysis) 164/110 mmHg Concurrent Access: falseAV Fistula Forearm (Left) Arterial BP Standing (Pre-Dialysis) 168/127 mmHg BP Standing (P ost-Dialysis) 146/99 mmHg Sitting Heart Rate Pre-Dialysis 97 BPM Sitting Heart Rate Post-Dialysis 91 BPM Standing Heart Rate Pre-Dialysis 100 BPM Standing Heart Rate Post-Dialysis 90 BPM Temperature Pre-Dialysis 97.2 degF Temperature Post -Dialysis 97.7 degF April 06, 2024 In-Center Hemodialysis Treatment 7885-93-14E87:25:15.000Z 3639-89-39L91:04:45.000Z BP Sitting (Pre-Dialysis) 156/103 mmHg BP Sitting (Post-Dialysis) 153/116 mmHg Concurrent Access: falseAV Fistula Forearm (Left) Arterial BP Standing (Pre-Dialysis) 147/113 mmHg Sitti ng Heart Rate Post-Dialysis 109 BPM Sitting Heart Rate Pre-Dialysis 86 BPM Temperatu re Post-Dialysis 97.3 degF Standing Heart Rate Pre-Dialysis 104 BPM Temperature Pre-Dialysis 98.4 degF April 05, 2024 In-Center Hemodialysis Treatment [id number]:05:00.000Z 7350-07-24B08:53:29.000Z BP Sitting (Pre-Dialysis) 122/89 mmHg BP Sitting (Post-Dialysis) 156/118 mmHg Concurrent Access: falseAV Fistula Forearm (Left) Arterial BP Standing (Pre-Dialysis) 180/54 mmHg BP Standing (P ost-Dialysis) 124/97 mmHg Sitting Heart Rate Pre-Dialysis 80 BPM Sitting Heart Rate Post-Dialysis 69 BPM Standing Heart Rate Pre-Dialysis 71 BPM Standing Heart Rate Post-Dialysis 104 BPM Temperature Pre-Dialysis 98 degF Temperature Post -Dialysis 97 degF April 01, 2024 In-Center Hemodialysis Treatment [id number]:16:38.000Z [id number]:45:53.000Z BP Sitting (Pre-Dialysis) 149/102 mmHg BP Sitting (Post-Dialysis) 165/102 mmHg Concurrent Access: falseAV Fistula Forearm (Left) Arterial BP Standing (Pre-Dialysis) 136/90 mmHg Sitti ng Heart Rate Post-Dialysis 94 BPM Sitting Heart Rate Pre-Dialysis 101 BPM Temperatu re Post-Dialysis 98.3 degF Standing Heart Rate Pre-Dialysis 117 BPM Temperature Pre-Dialysis 98.4 degF March 30, 2024 In-Center Hemodialysis Treatment [id number]:38:56.000Z [id number]:14:01.000Z BP Sitting (Pre-Dialysis) 173/123 mmHg BP Sitting (Post-Dialysis) 184/109 mmHg Concurrent Access: falseAV Fistula Forearm (Left) Arterial BP Standing (Pre-Dialysis) 145/110 mmHg BP Standing (P ost-Dialysis) 168/101 mmHg Sitting Heart Rate Pre-Dialysis 95 BPM Sitting Heart Rate Post-Dialysis 101 BPM Standing Heart Rate Pre-Dialysis 127 BPM Standing Heart Rate Post-Dialysis 100 BPM Temperature Pre-Dialysis 97.3 degF Temperature Post -Dialysis 97.9 degF March 29, 2024 In-Center Hemodialysis Treatment [id number]:05:43.000Z [id number]:38:33.000Z BP Sitting (Pre-Dialysis) 175/115 mmHg BP Sitting (Post-Dialysis) 138/82 mmHg Concurrent Access: falseAV Fistula Forearm (Left) Arterial BP Standing (Pre-Dialysis) 158/116 mmHg BP Standing (P ost-Dialysis) 134/99 mmHg Sitting Heart Rate Pre-Dialysis 95 BPM Sitting Heart Rate Post-Dialysis 80 BPM Standing Heart Rate Pre-Dialysis 105 BPM Standing Heart Rate Post-Dialysis 86 BPM Temperature Pre-Dialysis 97.6 degF Temperature Post -Dialysis 98 degF March 28, 2024 In-Center Hemodialysis Treatment [id number]:13:12.000Z [id number]:54:28.000Z BP Sitting (Pre-Dialysis) 169/128 mmHg BP Sitting (Post-Dialysis) 126/100 mmHg Concurrent Access: falseAV Fistula Forearm (Left) Arterial BP Standing (Pre-Dialysis) 190/127 mmHg BP Standing (P ost-Dialysis) 131/103 mmHg Sitting Heart Rate Pre-Dialysis 108 BPM Sitting Heart Rate Post-Dialysis 92 BPM Standing Heart Rate Pre-Dialysis 100 BPM Standing Heart Rate Post-Dialysis 98 BPM Temperature Pre-Dialysis 98.4 degF Temperature Post -Dialysis 97.9 degF March 23, 2024 In-Center Hemodialysis Treatment [id number]:01:00.000Z [id number]:35:45.000Z BP Sitting (Pre-Dialysis) 148/103 mmHg BP Sitting (Post-Dialysis) 107/91 mmHg Concurrent Access: falseAV Fistula Forearm (Left) Arterial BP Standing (Pre-Dialysis) 163/106 mmHg BP Standing (P ost-Dialysis) 125/92 mmHg Sitting Heart Rate Pre-Dialysis 77 BPM Sitting Heart Rate Post-Dialysis 103 BPM Standing Heart Rate Pre-Dialysis 88 BPM Standing Heart Rate Post-Dialysis 102 BPM Temperature Pre-Dialysis 97.3 degF Temperature Post -Dialysis 98.3 degF March 21, 2024 In-Center Hemodialysis Treatment [id number]:14:02.000Z [id number]:54:28.000Z BP Sitting (Pre-Dialysis) 122/91 mmHg BP Sitting (Post-Dialysis) 160/101 mmHg Concurrent Access: falseAV Fistula Forearm (Left) Arterial BP Standing (Pre-Dialysis) 120/99 mmHg Sitting Heart Rate Post-Dialysis 93 BPM Sitting Heart Rate Pre-Dialysis 86 BPM Temperatu re Post-Dialysis 98 degF Standing Heart Rate Pre-Dialysis 106 BPM Temperature Pre-Dialysis 97.9 degF March 20, 2024 In-Center Hemodialysis Treatment [id number]:33:59.000Z [id number]:15:09.000Z BP Sitting (Pre-Dialysis) 169/116 mmHg BP Sitting (Post-Dialysis) 165/110 mmHg Concurrent Access: falseAV Fistula Forearm (Left) Arterial BP Standing (Pre-Dialysis) 179/116 mmHg BP Standing (P ost-Dialysis) 129/87 mmHg Sitting Heart Rate Pre-Dialysis 93 BPM Sitting Heart Rate Post-Dialysis 98 BPM Standing Heart Rate Pre-Dialysis 87 BPM Standing Heart Rate Post-Dialysis 100 BPM Temperature Pre-Dialysis 98.2 degF Temperature Post -Dialysis 98.1 degF March 16, 2024 In-Center Hemodialysis Treatment [id number]:23:04.000Z [id number]:59:25.000Z BP Sitting (Pre-Dialysis) 160/106 mmHg BP Sitting (Post-Dialysis) 140/88 mmHg Concurrent Access: falseAV Fistula Forearm (Left) Arterial BP Standing (Pre-Dialysis) 149/89 mmHg BP Standing (P ost-Dialysis) 153/84 mmHg Sitting Heart Rate Pre-Dialysis 80 BPM Sitting Heart Rate Post-Dialysis 99 BPM Standing Heart Rate Pre-Dialysis 93 BPM Standing Heart Rate Post-Dialysis 90 BPM Temperature Pre-Dialysis 98 degF Temperature Post -Dialysis 98.1 degF March 14, 2024 In-Center Hemodialysis Treatment [id number]:37:46.000Z 6084-95-63W04:33:46.000Z BP Sitting (Pre-Dialysis) 126/99 mmHg BP Sitting (Post-Dialysis) 136/93 mmHg Concurrent Access: falseAV Fistula Forearm (Left) Arterial BP Standing (Pre-Dialysis) 141/98 mmHg BP Standing (P ost-Dialysis) 156/72 mmHg Sitting Heart Rate Pre-Dialysis 96 BPM Sitting Heart Rate Post-Dialysis 96 BPM Standing Heart Rate Pre-Dialysis 96 BPM Standing Heart Rate Post-Dialysis 105 BPM Temperature Pre-Dialysis 98.1 degF Temperature Post -Dialysis 98.2 degF March 12, 2024 In-Center Hemodialysis Treatment [id number]:13:25.000Z [id number]:47:19.000Z BP Sitting (Pre-Dialysis) 172/114 mmHg BP Sitting (Post-Dialysis) 124/98 mmHg Concurrent Access: falseAV Fistula Forearm (Left) Arterial BP Standing (Pre-Dialysis) 170/103 mmHg Sitti ng Heart Rate Post-Dialysis 108 BPM Sitting Heart Rate Pre-Dialysis 93 BPM Temperatu re Post-Dialysis 98.3 degF Standing Heart Rate Pre-Dialysis 93 BPM Temperature Pre-Dialysis 98.9 degF March 09, 2024 In-Center Hemodialysis Treatment [id number]:21:39.000Z [id number]:58:45.000Z BP Sitting (Pre-Dialysis) 166/111 mmHg BP Sitting (Post-Dialysis) 150/99 mmHg Concurrent Access: falseAV Fistula Forearm (Left) Arterial BP Standing (Pre-Dialysis) 170/110 mmHg Sitti ng Heart Rate Post-Dialysis 95 BPM Sitting Heart Rate Pre-Dialysis 85 BPM Temperatu re Post-Dialysis 97.3 degF Standing Heart Rate Pre-Dialysis 86 BPM Temperature Pre-Dialysis 97.5 degF March 06, 2024 In-Center Hemodialysis Treatment [id number]:08:48.000Z [id number]:52:53.000Z BP Sitting (Pre-Dialysis) 179/125 mmHg BP Sitting (Post-Dialysis) 156/103 mmHg Concurrent Access: falseAV Fistula Forearm (Left) Arterial BP Standing (Pre-Dialysis) 187/115 mmHg BP Standing (P ost-Dialysis) 132/89 mmHg Sitting Heart Rate Pre-Dialysis 80 BPM Sitting Heart Rate Post-Dialysis 60 BPM Standing Heart Rate Pre-Dialysis 87 BPM Standing Heart Rate Post-Dialysis 60 BPM Temperature Pre-Dialysis 97.3 degF Temperature Post -Dialysis 97.6 degF March 04, 2024 In-Center Hemodialysis Treatment [id number]:11:00.000Z 2658-03-32G95:23:03.000Z BP Sitting (Pre-Dialysis) 160/101 mmHg BP Sitting (Post-Dialysis) 160/82 mmHg Concurrent Access: falseAV Fistula Forearm (Left) Arterial BP Standing (Pre-Dialysis) 165/100 mmHg BP Standing (P ost-Dialysis) 120/78 mmHg Sitting Heart Rate Pre-Dialysis 95 BPM Sitting Heart Rate Post-Dialysis 110 BPM Standing Heart Rate Pre-Dialysis 105 BPM Standing Heart Rate Post-Dialysis 110 BPM Temperature Pre-Dialysis 97.9 degF Temperature Post -Dialysis 98.6 degF March 02, 2024 In-Center Hemodialysis Treatment [id number]:10:04.000Z [id number]:47:09.000Z BP Sitting (Pre-Dialysis) 167/120 mmHg BP Sitting (Post-Dialysis) 138/101 mmHg Concurrent Access: falseAV Fistula Forearm (Left) Arterial BP Standing (Pre-Dialysis) 130/87 mmHg BP Standing (P ost-Dialysis) 138/101 mmHg Sitting Heart Rate Pre-Dialysis 98 BPM Sitting Heart Rate Post-Dialysis 110 BPM Standing Heart Rate Pre-Dialysis 67 BPM Standing Heart Rate Post-Dialysis 110 BPM Temperature Pre-Dialysis 97.3 degF Temperature Post -Dialysis 98.3 degF February 29, 2024 In-Center Hemodialysis Treatment [id number]:08:33.000Z [id number]:42:08.000Z BP Sitting (Pre-Dialysis) 117/96 mmHg BP Sitting (Post-Dialysis) 108/84 mmHg Concurrent Access: falseAV Fistula Forearm (Left) Arterial BP Standing (Pre-Dialysis) 157/103 mmHg Sitti ng Heart Rate Post-Dialysis 82 BPM Sitting Heart Rate Pre-Dialysis 93 BPM Temperatu re Post-Dialysis 97.3 degF Standing Heart Rate Pre-Dialysis 102 BPM Temperature Pre-Dialysis 97.9 degF February 27, 2024 In-Center Hemodialysis Treatment 4616-30-22U69:07:34.000Z 6488-29-39G07:14:44.000Z BP Sitting (Pre-Dialysis) 172/121 mmHg BP Sitting (Post-Dialysis) 101/80 mmHg Concurrent Access: falseAV Fistula Forearm (Left) Arterial BP Standing (Pre-Dialysis) 162/111 mmHg BP Standing (P ost-Dialysis) 160/105 mmHg Sitting Heart Rate Pre-Dialysis 87 BPM Sitting Heart Rate Post-Dialysis 70 BPM Standing Heart Rate Pre-Dialysis 87 BPM Standing Heart Rate Post-Dialysis 75 BPM Temperature Pre-Dialysis 97.3 degF Temperature Post -Dialysis 97.3 degF February 24, 2024 In-Center Hemodialysis Treatment [id number]:02:16.000Z 5865-59-19V40:32:46.000Z BP Sitting (Pre-Dialysis) 112/81 mmHg BP Sitting (Post-Dialysis) 156/78 mmHg Concurrent Access: falseAV Fistula Forearm (Left) Arterial BP Standing (Pre-Dialysis) 150/102 mmHg Sitti ng Heart Rate Post-Dialysis 94 BPM Sitting Heart Rate Pre-Dialysis 67 BPM Temperatu re Post-Dialysis 98.2 degF Standing Heart Rate Pre-Dialysis 108 BPM Temperature Pre-Dialysis 98.1 degF February 22, 2024 In-Center Hemodialysis Treatment [id number]:01:32.000Z [id number]:37:03.000Z BP Sitting (Pre-Dialysis) 176/111 mmHg BP Sitting (Post-Dialysis) 140/99 mmHg Concurrent Access: falseAV Fistula Forearm (Left) Arterial BP Standing (Pre-Dialysis) 173/110 mmHg BP Standing (P ost-Dialysis) 120/68 mmHg Sitting Heart Rate Pre-Dialysis 81 BPM Sitting Heart Rate Post-Dialysis 104 BPM Standing Heart Rate Pre-Dialysis 99 BPM Standing Heart Rate Post-Dialysis 110 BPM Temperature Pre-Dialysis 97.9 degF Temperature Post -Dialysis 97.3 degF February 20, 2024 In-Center Hemodialysis Treatment [id number]:17:42.000Z [id number]:57:12.000Z BP Sitting (Pre-Dialysis) 179/125 mmHg BP Sitting (Post-Dialysis) 126/82 mmHg Concurrent Access: falseAV Fistula Forearm (Left) Arterial BP Standing (Pre-Dialysis) 193/126 mmHg BP Standing (P ost-Dialysis) 133/99 mmHg Sitting Heart Rate Pre-Dialysis 85 BPM Sitting Heart Rate Post-Dialysis 92 BPM Standing Heart Rate Pre-Dialysis 89 BPM Standing Heart Rate Post-Dialysis 90 BPM Temperature Pre-Dialysis 97.8 degF Temperature Post -Dialysis 97.8 degF February 17, 2024 In-Center Hemodialysis Treatment [id number]:35:53.000Z [id number]:15:03.000Z BP Sitting (Pre-Dialysis) 186/104 mmHg BP Sitting (Post-Dialysis) 112/81 mmHg Concurrent Access: falseAV Fistula Forearm (Left) Arterial BP Standing (Pre-Dialysis) 158/103 mmHg BP Standing (P ost-Dialysis) 106/59 mmHg Sitting Heart Rate Pre-Dialysis 93 BPM Sitting Heart Rate Post-Dialysis 96 BPM Standing Heart Rate Pre-Dialysis 112 BPM Standing Heart Rate Post-Dialysis 67 BPM Temperature Pre-Dialysis 97.8 degF Temperature Post -Dialysis 98.3 degF February 15, 2024 In-Center Hemodialysis Treatment [id number]:55:00.000Z [id number]:31:09.000Z BP Sitting (Pre-Dialysis) 172/109 mmHg BP Sitting (Post-Dialysis) 159/93 mmHg Concurrent Access: falseAV Fistula Forearm (Left) Arterial BP Standing (Pre-Dialysis) 153/111 mmHg Sitti ng Heart Rate Post-Dialysis 103 BPM Sitting Heart Rate Pre-Dialysis 85 BPM Temperatu re Post-Dialysis 98.4 degF Standing Heart Rate Pre-Dialysis 95 BPM Temperature Pre-Dialysis 97.6 degF February 13, 2024 In-Center Hemodialysis Treatment 1913-44-10T85:51:14.000Z 0021-11-69Z41:19:49.000Z BP Sitting (Pre-Dialysis) 161/110 mmHg BP Sitting (Post-Dialysis) 131/101 mmHg Concurrent Access: falseAV Fistula Forearm (Left) Arterial BP Standing (Pre-Dialysis) 162/106 mmHg BP Standing (P ost-Dialysis) 117/74 mmHg Sitting Heart Rate Pre-Dialysis 85 BPM Sitting Heart Rate Post-Dialysis 98 BPM Standing Heart Rate Pre-Dialysis 95 BPM Standing Heart Rate Post-Dialysis 104 BPM Temperature Pre-Dialysis 97.3 degF Temperature Post -Dialysis 98.4 degF February 10, 2024 In-Center Hemodialysis Treatment [id number]:39:01.000Z [id number]:37:02.000Z BP Sitting (Pre-Dialysis) 185/121 mmHg BP Sitting (Post-Dialysis) 138/108 mmHg Concurrent Access: falseAV Fistula Forearm (Left) Arterial BP Standing (Pre-Dialysis) 109/74 mmHg BP Standing (P ost-Dialysis) 117/55 mmHg Sitting Heart Rate Pre-Dialysis 85 BPM Sitting Heart Rate Post-Dialysis 85 BPM Standing Heart Rate Pre-Dialysis 73 BPM Standing Heart Rate Post-Dialysis 108 BPM Temperature Pre-Dialysis 97.3 degF February 08, 2024 In-Center Hemodialysis Treatment [id number]:57:00.000Z 4330-56-90K25:30:33.000Z BP Sitting (Pre-Dialysis) 161/104 mmHg BP Sitting (Post-Dialysis) 152/96 mmHg Concurrent Access: falseAV Fistula Forearm (Left) Arterial BP Standing (Pre-Dialysis) 110/82 mmHg BP Standing (P ost-Dialysis) 114/78 mmHg Sitting Heart Rate Pre-Dialysis 82 BPM Sitting Heart Rate Post-Dialysis 86 BPM Standing Heart Rate Pre-Dialysis 94 BPM Standing Heart Rate Post-Dialysis 72 BPM Temperature Pre-Dialysis 98.3 degF Temperature Post -Dialysis 97.3 degF February 07, 2024 In-Center Hemodialysis Treatment [id number]:57:02.000Z 0493-51-98I91:34:18.000Z BP Sitting (Pre-Dialysis) 157/119 mmHg BP Sitting (Post-Dialysis) 148/100 mmHg Concurrent Access: falseAV Fistula Forearm (Left) Arterial BP Standing (Pre-Dialysis) 185/118 mmHg Sitti ng Heart Rate Post-Dialysis 89 BPM Sitting Heart Rate Pre-Dialysis 85 BPM Temperatu re Post-Dialysis 98 degF Standing Heart Rate Pre-Dialysis 94 BPM Temperature Pre-Dialysis 97.7 degF February 03, 2024 In-Center Hemodialysis Treatment 2771-95-89P46:00:01.000Z 7791-06-63O69:01:01.000Z BP Sitting (Pre-Dialysis) 153/100 mmHg BP Sitting (Post-Dialysis) 128/99 mmHg Concurrent Access: falseAV Fistula Forearm (Left) Arterial BP Standing (Pre-Dialysis) 151/102 mmHg Sitti ng Heart Rate Post-Dialysis 89 BPM Sitting Heart Rate Pre-Dialysis 74 BPM Temperatu re Post-Dialysis 98.2 degF Standing Heart Rate Pre-Dialysis 82 BPM Temperature Pre-Dialysis 97.2 degF February 01, 2024 In-Center Hemodialysis Treatment [id number]:28:59.000Z 8874-38-60Z89:04:36.000Z BP Sitting (Pre-Dialysis) 160/103 mmHg BP Sitting (Post-Dialysis) 109/87 mmHg Concurrent Access: falseAV Fistula Forearm (Left) Arterial BP Standing (Pre-Dialysis) 158/92 mmHg BP Standing (P ost-Dialysis) 125/85 mmHg Sitting Heart Rate Pre-Dialysis 85 BPM Sitting Heart Rate Post-Dialysis 90 BPM Standing Heart Rate Pre-Dialysis 101 BPM Standing Heart Rate Post-Dialysis 86 BPM Temperature Pre-Dialysis 97.6 degF Temperature Post -Dialysis 97.8 degF January 31, 2024 In-Center Hemodialysis Treatment [id number]:06:58.000Z [id number]:37:03.000Z BP Sitting (Pre-Dialysis) 108/84 mmHg BP Sitting (Post-Dialysis) 130/107 mmHg Concurrent Access: falseAV Fistula Forearm (Left) Arterial BP Standing (Pre-Dialysis) 123/81 mmHg Sitti ng Heart Rate Post-Dialysis 85 BPM Sitting Heart Rate Pre-Dialysis 82 BPM Temperatu re Post-Dialysis 97.9 degF Standing Heart Rate Pre-Dialysis 82 BPM Temperature Pre-Dialysis 97.8 degF January 28, 2024 In-Center Hemodialysis Treatment [id number]:16:08.000Z 0913-33-74Y58:36:48.000Z BP Sitting (Pre-Dialysis) 153/100 mmHg BP Sitting (Post-Dialysis) 152/95 mmHg Concurrent Access: falseAV Fistula Forearm (Left) Arterial BP Standing (Pre-Dialysis) 156/94 mmHg BP Standing (P ost-Dialysis) 102/65 mmHg Sitting Heart Rate Pre-Dialysis 95 BPM Sitting Heart Rate Post-Dialysis 82 BPM Standing Heart Rate Pre-Dialysis 87 BPM Standing Heart Rate Post-Dialysis 86 BPM Temperature Pre-Dialysis 97.8 degF Temperature Post -Dialysis 97.9 degF January 27, 2024 In-Center Hemodialysis Treatment [id number]:14:54.000Z 1139-22-80R81:39:53.000Z BP Sitting (Pre-Dialysis) 154/110 mmHg BP Sitting (Post-Dialysis) 156/80 mmHg Concurrent Access: falseAV Fistula Forearm (Left) Arterial BP Standing (Pre-Dialysis) 120/81 mmHg Sitti ng Heart Rate Post-Dialysis 103 BPM Sitting Heart Rate Pre-Dialysis 82 BPM Temperatu re Post-Dialysis 97.6 degF Standing Heart Rate Pre-Dialysis 80 BPM Temperature Pre-Dialysis 98 degF January 26, 2024 In-Center Hemodialysis Treatment [id number]:58:42.000Z 1754-21-53A12:39:58.000Z BP Sitting (Pre-Dialysis) 181/122 mmHg BP Sitting (Post-Dialysis) 169/116 mmHg Concurrent Access: falseAV Fistula Forearm (Left) Arterial BP Standing (Pre-Dialysis) 177/120 mmHg BP Standing (P ost-Dialysis) 154/113 mmHg Sitting Heart Rate Pre-Dialysis 74 BPM Sitting Heart Rate Post-Dialysis 73 BPM Standing Heart Rate Pre-Dialysis 80 BPM Standing Heart Rate Post-Dialysis 88 BPM Temperature Pre-Dialysis 97.8 degF Temperature Post -Dialysis 98.2 degF January 20, 2024 In-Center Hemodialysis Treatment [id number]:29:18.000Z 4022-29-21E44:50:08.000Z BP Sitting (Pre-Dialysis) 155/108 mmHg BP Sitting (Post-Dialysis) 148/100 mmHg Concurrent Access: falseAV Fistula Forearm (Left) Arterial Sitting Heart Rate Pre-Dialysis 81 BPM BP Standi ng (Post-Dialysis) 112/75 mmHg Temperature Pre-Dialysis 98 degF Sitting Heart Ra te Post-Dialysis 100 BPM Standing Heart Rate Post-Nusrat lysis 100 BPM Temperature Post-Dialysis 98 .3 degF January 18, 2024 In-Center Hemodialysis Treatment 5610-80-75C77:30:42.000Z 2917-83-16B42:35:47.000Z BP Sitting (Pre-Dialysis) 169/119 mmHg BP Sitting (Post-Dialysis) 120/77 mmHg Concurrent Access: falseAV Fistula Forearm (Left) Arterial BP Standing (Pre-Dialysis) 173/113 mmHg BP Standing (P ost-Dialysis) 142/86 mmHg Sitting Heart Rate Pre-Dialysis 89 BPM Sitting Heart Rate Post-Dialysis 87 BPM Standing Heart Rate Pre-Dialysis 90 BPM Standing Heart Rate Post-Dialysis 92 BPM Temperature Pre-Dialysis 97.9 degF Temperature Post -Dialysis 98.4 degF January 16, 2024 In-Center Hemodialysis Treatment 3918-16-20Z23:37:50.000Z [id number]:40:31.000Z BP Sitting (Pre-Dialysis) 120/100 mmHg BP Sitting (Post-Dialysis) 167/100 mmHg Concurrent Access: falseAV Fistula Forearm (Left) Arterial BP Standing (Pre-Dialysis) 172/99 mmHg BP Standing (P ost-Dialysis) 140/95 mmHg Sitting Heart Rate Pre-Dialysis 88 BPM Sitting Heart Rate Post-Dialysis 65 BPM Standing Heart Rate Pre-Dialysis 94 BPM Standing Heart Rate Post-Dialysis 75 BPM Temperature Pre-Dialysis 97.5 degF Temperature Post -Dialysis 97.3 degF January 13, 2024 In-Center Hemodialysis Treatment [id number]:58:25.000Z 9499-92-22K97:42:15.000Z BP Sitting (Pre-Dialysis) 151/99 mmHg BP Sitting (Post-Dialysis) 142/74 mmHg Concurrent Access: falseAV Fistula Forearm (Left) Arterial Sitting Heart Rate Pre-Dialysis 80 BPM BP Standing (Post-Dialysis) 152/92 mmHg Temperature Pre-Dialysis 97.8 degF Sitting Heart Ra te Post-Dialysis 78 BPM Standing Heart Rate Post-Nusrat lysis 65 BPM Temperature Post-Dialysis 97 .4 degF January 12, 2024 In-Center Hemodialysis Treatment 6525-60-82Q24:13:55.000Z 8207-36-89Y95:53:39.000Z BP Sitting (Pre-Dialysis) 152/108 mmHg BP Sitting (Post-Dialysis) 142/87 mmHg Concurrent Access: falseAV Fistula Forearm (Left) Arterial BP Standing (Pre-Dialysis) 159/118 mmHg BP Standing (P ost-Dialysis) 143/100 mmHg Sitting Heart Rate Pre-Dialysis 80 BPM Sitting Heart Rate Post-Dialysis 80 BPM Standing Heart Rate Pre-Dialysis 88 BPM Standing Heart Rate Post-Dialysis 99 BPM Temperature Pre-Dialysis 97.9 degF Temperature Post -Dialysis 97.5 degF January 09, 2024 In-Center Hemodialysis Treatment [id number]:10:47.000Z 7715-41-36S97:45:27.000Z BP Sitting (Pre-Dialysis) 148/85 mmHg BP Sitting (Post-Dialysis) 105/81 mmHg Concurrent Access: falseAV Fistula Forearm (Left) Arterial BP Standing (Pre-Dialysis) 142/94 mmHg BP Standing (P ost-Dialysis) 134/102 mmHg Sitting Heart Rate Pre-Dialysis 95 BPM Sitting Heart Rate Post-Dialysis 91 BPM Standing Heart Rate Pre-Dialysis 77 BPM Standing Heart Rate Post-Dialysis 100 BPM Temperature Pre-Dialysis 98 degF Temperature Post -Dialysis 97.6 degF January 06, 2024 In-Center Hemodialysis Treatment [id number]:10:00.000Z 3830-91-33N77:21:00.000Z BP Sitting (Pre-Dialysis) 175/95 mmHg BP Sitting (Post-Dialysis) 120/91 mmHg Concurrent Access: falseAV Fistula Forearm (Left) Arterial BP Standing (Pre-Dialysis) 124/89 mmHg BP Standing (P ost-Dialysis) 151/83 mmHg Sitting Heart Rate Pre-Dialysis 106 BPM Sitting Heart Rate Post-Dialysis 77 BPM Standing Heart Rate Pre-Dialysis 106 BPM Standing Heart Rate Post-Dialysis 77 BPM Temperature Pre-Dialysis 98.3 degF Temperature Post -Dialysis 97.6 degF January 05, 2024 In-Center Hemodialysis Treatment 3030-45-78H26:03:40.000Z 8956-65-11O15:27:14.000Z BP Sitting (Pre-Dialysis) 170/120 mmHg BP Sitting (Post-Dialysis) 152/107 mmHg Concurrent Access: falseAV Fistula Forearm (Left) Arterial BP Standing (Pre-Dialysis) 177/120 mmHg BP Standing (P ost-Dialysis) 148/117 mmHg Sitting Heart Rate Pre-Dialysis 69 BPM Sitting Heart Rate Post-Dialysis 90 BPM Standing Heart Rate Pre-Dialysis 77 BPM Standing Heart Rate Post-Dialysis 96 BPM Temperature Pre-Dialysis 98.3 degF Temperature Post -Dialysis 97.5 degF January 04, 2024 In-Center Hemodialysis Treatment 5311-79-68U06:37:20.000Z 5613-70-56R01:09:21.000Z BP Sitting (Pre-Dialysis) 184/126 mmHg BP Sitting (Post-Dialysis) 153/102 mmHg Concurrent Access: falseAV Fistula Forearm (Left) Arterial BP Standing (Pre-Dialysis) 200/121 mmHg BP Standing (P ost-Dialysis) 129/89 mmHg Sitting Heart Rate Pre-Dialysis 87 BPM Sitting Heart Rate Post-Dialysis 80 BPM Standing Heart Rate Pre-Dialysis 73 BPM Standing Heart Rate Post-Dialysis 92 BPM Temperature Pre-Dialysis 98 degF Temperature Post -Dialysis 98 degF December 31, 2023 In-Center Hemodialysis Treatment [id number]:05:54.000Z 8300-32-74H87:43:41.000Z BP Sitting (Pre-Dialysis) 161/111 mmHg BP Sitting (Post-Dialysis) 158/108 mmHg Concurrent Access: falseAV Fistula Forearm (Left) Arterial BP Standing (Pre-Dialysis) 168/105 mmHg Sitti ng Heart Rate Post-Dialysis 80 BPM Sitting Heart Rate Pre-Dialysis 82 BPM Temperatu re Post-Dialysis 98 degF Standing Heart Rate Pre-Dialysis 95 BPM Temperature Pre-Dialysis 97.8 degF December 28, 2023 In-Center Hemodialysis Treatment 9860-60-13Z82:10:12.000Z 8688-39-43M19:49:27.000Z BP Sitting (Pre-Dialysis) 167/121 mmHg BP Sitting (Post-Dialysis) 111/95 mmHg Concurrent Access: falseAV Fistula Forearm (Left) Arterial BP Standing (Pre-Dialysis) 171/118 mmHg BP Standing (P ost-Dialysis) 104/83 mmHg Sitting Heart Rate Pre-Dialysis 85 BPM Sitting Heart Rate Post-Dialysis 80 BPM Standing Heart Rate Pre-Dialysis 86 BPM Standing Heart Rate Post-Dialysis 117 BPM Temperature Pre-Dialysis 98.9 degF Temperature Post -Dialysis 98.3 degF December 26, 2023 In-Center Hemodialysis Treatment [id number]:19:16.000Z 1634-39-72F62:53:37.000Z BP Sitting (Pre-Dialysis) 140/113 mmHg BP Sitting (Post-Dialysis) 126/60 mmHg Concurrent Access: falseAV Fistula Forearm (Left) Arterial BP Standing (Pre-Dialysis) 158/101 mmHg BP Standing (P ost-Dialysis) 136/64 mmHg Sitting Heart Rate Pre-Dialysis 88 BPM Sitting Heart Rate Post-Dialysis 80 BPM Standing Heart Rate Pre-Dialysis 103 BPM Standing Heart Rate Post-Dialysis 80 BPM Temperature Pre-Dialysis 98.3 degF Temperature Post -Dialysis 98.3 degF December 23, 2023 In-Center Hemodialysis Treatment 4311-55-49U43:06:00.000Z 7667-29-86O66:47:32.000Z BP Sitting (Pre-Dialysis) 168/110 mmHg BP Sitting (Post-Dialysis) 129/86 mmHg Concurrent Access: falseAV Fistula Forearm (Left) Arterial BP Standing (Pre-Dialysis) 170/124 mmHg BP Standing (P ost-Dialysis) 112/70 mmHg Sitting Heart Rate Pre-Dialysis 82 BPM Sitting Heart Rate Post-Dialysis 80 BPM Standing Heart Rate Pre-Dialysis 95 BPM Standing Heart Rate Post-Dialysis 70 BPM Temperature Pre-Dialysis 98.6 degF Temperature Post -Dialysis 98.6 degF December 21, 2023 In-Center Hemodialysis Treatment [id number]:10:00.000Z 6355-72-15J68:23:01.000Z BP Sitting (Pre-Dialysis) 176/119 mmHg BP Sitting (Post-Dialysis) 124/95 mmHg Concurrent Access: falseAV Fistula Forearm (Left) Arterial BP Standing (Pre-Dialysis) 163/112 mmHg Sitti ng Heart Rate Post-Dialysis 97 BPM Sitting Heart Rate Pre-Dialysis 93 BPM Temperatu re Post-Dialysis 98.3 degF Standing Heart Rate Pre-Dialysis 96 BPM Temperature Pre-Dialysis 98.2 degF December 19, 2023 In-Center Hemodialysis Treatment 7247-10-62F36:10:00.000Z 8462-00-20H16:42:02.000Z BP Sitting (Pre-Dialysis) 169/110 mmHg BP Sitting (Post-Dialysis) 105/85 mmHg Concurrent Access: falseAV Fistula Forearm (Left) Arterial BP Standing (Pre-Dialysis) 170/118 mmHg Sitti ng Heart Rate Post-Dialysis 108 BPM Sitting Heart Rate Pre-Dialysis 92 BPM Temperatu re Post-Dialysis 98.3 degF Standing Heart Rate Pre-Dialysis 86 BPM Temperature Pre-Dialysis 98.1 degF December 16, 2023 In-Center Hemodialysis Treatment [id number]:32:00.000Z [id number]:58:47.000Z BP Sitting (Pre-Dialysis) 124/102 mmHg BP Sitting (Post-Dialysis) 160/107 mmHg Concurrent Access: falseAV Fistula Forearm (Left) Arterial BP Standing (Pre-Dialysis) 177/113 mmHg Sitti ng Heart Rate Post-Dialysis 102 BPM Sitting Heart Rate Pre-Dialysis 91 BPM Temperatu re Post-Dialysis 98.3 degF Standing Heart Rate Pre-Dialysis 107 BPM Temperature Pre-Dialysis 98.3 degF December 14, 2023 In-Center Hemodialysis Treatment [id number]:13:00.000Z [id number]:50:46.000Z BP Sitting (Pre-Dialysis) 157/105 mmHg BP Sitting (Post-Dialysis) 102/86 mmHg Concurrent Access: falseAV Fistula Forearm (Left) Arterial BP Standing (Pre-Dialysis) 149/90 mmHg BP Standing (P ost-Dialysis) 147/82 mmHg Sitting Heart Rate Pre-Dialysis 85 BPM Sitting Heart Rate Post-Dialysis 99 BPM Standing Heart Rate Pre-Dialysis 88 BPM Standing Heart Rate Post-Dialysis 92 BPM Temperature Pre-Dialysis 97.8 degF Temperature Post -Dialysis 98 degF December 12, 2023 In-Center Hemodialysis Treatment [id number]:18:00.000Z [id number]:44:59.000Z BP Sitting (Pre-Dialysis) 120/94 mmHg BP Sitting (Post-Dialysis) 150/85 mmHg Concurrent Access: falseAV Fistula Forearm (Left) Arterial BP Standing (Pre-Dialysis) 114/87 mmHg BP Standing (P ost-Dialysis) 106/75 mmHg Sitting Heart Rate Pre-Dialysis 94 BPM Sitting Heart Rate Post-Dialysis 55 BPM Standing Heart Rate Pre-Dialysis 86 BPM Standing Heart Rate Post-Dialysis 80 BPM Temperature Pre-Dialysis 98.3 degF Temperature Post -Dialysis 98.3 degF December 09, 2023 In-Center Hemodialysis Treatment [id number]:05:00.000Z [id number]:43:39.000Z BP Sitting (Pre-Dialysis) 165/105 mmHg BP Sitting (Post-Dialysis) 174/101 mmHg Concurrent Access: falseAV Fistula Forearm (Left) Arterial Sitting Heart Rate Pre-Dialysis 97 BPM BP Standing (Post-Dialysis) 117/90 mmHg Temperature Pre-Dialysis 97.9 degF Sitting Heart Ra te Post-Dialysis 82 BPM Standing Heart Rate Post-Nusrat lysis 98 BPM Temperature Post-Dialysis 98 .3 degF December 08, 2023 In-Center Hemodialysis Treatment [id number]:15:00.000Z 9173-04-06S47:42:35.000Z BP Sitting (Pre-Dialysis) 170/113 mmHg BP Sitting (Post-Dialysis) 156/112 mmHg Concurrent Access: falseAV Fistula Forearm (Left) Arterial BP Standing (Pre-Dialysis) 146/98 mmHg BP Standing (P ost-Dialysis) 135/88 mmHg Sitting Heart Rate Pre-Dialysis 77 BPM Sitting Heart Rate Post-Dialysis 89 BPM Standing Heart Rate Pre-Dialysis 82 BPM Standing Heart Rate Post-Dialysis 98 BPM Temperature Pre-Dialysis 98.1 degF Temperature Post -Dialysis 98.3 degF December 05, 2023 In-Center Hemodialysis Treatment [id number]:44:00.000Z 4827-24-57Y55:52:17.000Z BP Sitting (Pre-Dialysis) 152/103 mmHg BP Sitting (Post-Dialysis) 150/94 mmHg Concurrent Access: falseAV Fistula Forearm (Left) Arterial BP Standing (Pre-Dialysis) 152/103 mmHg BP Standing (P ost-Dialysis) 110/71 mmHg Sitting Heart Rate Pre-Dialysis 93 BPM Sitting Heart Rate Post-Dialysis 90 BPM Standing Heart Rate Pre-Dialysis 93 BPM Standing Heart Rate Post-Dialysis 77 BPM Temperature Pre-Dialysis 98.3 degF Temperature Post -Dialysis 98.3 degF December 01, 2023 Sequential Treatment [id number]:41:00.000Z [id number]:44:34.000Z BP Sitting (Pre-Dialysis) 149/103 mmHg BP Sitting (Post-Dialysis) 133/90 mmHg Concurrent Access: falseAV Fistula Forearm (Left) Arterial BP Standing (Pre-Dialysis) 174/90 mmHg BP Standing (P ost-Dialysis) 106/84 mmHg Sitting Heart Rate Pre-Dialysis 96 BPM Sitting Heart Rate Post-Dialysis 102 BPM Standing Heart Rate Pre-Dialysis 103 BPM Standing Heart Rate Post-Dialysis 94 BPM Temperature Pre-Dialysis 98.3 degF Temperature Post -Dialysis 98.3 degF November 30, 2023 In-Center Hemodialysis Treatment [id number]:12:20.000Z [id number]:35:48.000Z BP Sitting (Pre-Dialysis) 184/129 mmHg BP Sitting (Post-Dialysis) 176/98 mmHg Concurrent Access: falseAV Fistula Forearm (Left) Arterial BP Standing (Pre-Dialysis) 192/132 mmHg BP Standing (P ost-Dialysis) 137/55 mmHg Sitting Heart Rate Pre-Dialysis 85 BPM Sitting Heart Rate Post-Dialysis 88 BPM Standing Heart Rate Pre-Dialysis 80 BPM Standing Heart Rate Post-Dialysis 85 BPM Temperature Pre-Dialysis 97.9 degF Temperature Post -Dialysis 98.6 degF November 28, 2023 In-Center Hemodialysis Treatment [id number]:18:00.000Z [id number]:45:39.000Z BP Sitting (Pre-Dialysis) 162/128 mmHg BP Sitting (Post-Dialysis) 158/98 mmHg Concurrent Access: falseAV Fistula Forearm (Left) Arterial BP Standing (Pre-Dialysis) 156/117 mmHg BP Standing (P ost-Dialysis) 122/87 mmHg Sitting Heart Rate Pre-Dialysis 80 BPM Sitting Heart Rate Post-Dialysis 87 BPM Standing Heart Rate Pre-Dialysis 87 BPM Standing Heart Rate Post-Dialysis 99 BPM Temperature Pre-Dialysis 98.3 degF November 25, 2023 In-Center Hemodialysis Treatment [id number]:10:00.000Z [id number]:42:52.000Z BP Sitting (Pre-Dialysis) 157/98 mmHg BP Sitting (Post-Dialysis) 151/101 mmHg Concurrent Access: falseAV Fistula Forearm (Left) Arterial BP Standing (Pre-Dialysis) 173/91 mmHg Sitti ng Heart Rate Post-Dialysis 78 BPM Sitting Heart Rate Pre-Dialysis 94 BPM Temperatu re Post-Dialysis 98.6 degF Standing Heart Rate Pre-Dialysis 97 BPM Temperature Pre-Dialysis 98.3 degF November 24, 2023 In-Center Hemodialysis Treatment [id number]:02:00.000Z 6085-26-96Q22:27:58.000Z BP Sitting (Pre-Dialysis) 160/86 mmHg BP Sitting (Post-Dialysis) 125/84 mmHg Concurrent Access: falseAV Fistula Forearm (Left) Arterial Sitting Heart Rate Pre-Dialysis 86 BPM Sitting H eart Rate Post-Dialysis 57 BPM Temperature Pre-Dialysis 98 degF Temperature Post -Dialysis 98.3 degF November 21, 2023 In-Center Hemodialysis Treatment [id number]:53:00.000Z 0535-88-04P69:56:37.000Z BP Sitting (Pre-Dialysis) 147/113 mmHg BP Sitting (Post-Dialysis) 158/91 mmHg Concurrent Access: falseAV Fistula Forearm (Left) Arterial BP Standing (Pre-Dialysis) 148/111 mmHg Sitti ng Heart Rate Post-Dialysis 94 BPM Sitting Heart Rate Pre-Dialysis 77 BPM Temperatu re Post-Dialysis 98.3 degF Standing Heart Rate Pre-Dialysis 93 BPM Temperature Pre-Dialysis 98.3 degF November 16, 2023 In-Center Hemodialysis Treatment [id number]:08:00.000Z [id number]:44:38.000Z BP Sitting (Pre-Dialysis) 157/112 mmHg BP Sitting (Post-Dialysis) 113/96 mmHg Concurrent Access: falseAV Fistula Forearm (Left) Arterial BP Standing (Pre-Dialysis) 159/105 mmHg BP Standing (P ost-Dialysis) 113/96 mmHg Sitting Heart Rate Pre-Dialysis 67 BPM Sitting Heart Rate Post-Dialysis 80 BPM Standing Heart Rate Pre-Dialysis 97 BPM Standing Heart Rate Post-Dialysis 80 BPM Temperature Pre-Dialysis 97.9 degF Temperature Post -Dialysis 97.5 degF November 14, 2023 In-Center Hemodialysis Treatment 8415-07-49B84:24:00.000Z 9027-94-65K05:53:18.000Z BP Sitting (Pre-Dialysis) 172/116 mmHg BP Sitting (Post-Dialysis) 108/87 mmHg Concurrent Access: falseAV Fistula Forearm (Left) Arterial BP Standing (Pre-Dialysis) 153/114 mmHg BP Standing (P ost-Dialysis) 115/92 mmHg Sitting Heart Rate Pre-Dialysis 80 BPM Sitting Heart Rate Post-Dialysis 80 BPM Standing Heart Rate Pre-Dialysis 86 BPM Standing Heart Rate Post-Dialysis 110 BPM Temperature Pre-Dialysis 98 degF Temperature Post -Dialysis 97.5 degF November 11, 2023 In-Center Hemodialysis Treatment [id number]:10:00.000Z 4534-84-26P04:28:08.000Z BP Sitting (Pre-Dialysis) 160/112 mmHg BP Sitting (Post-Dialysis) 125/95 mmHg Concurrent Access: falseAV Fistula Forearm (Left) Arterial Sitting Heart Rate Pre-Dialysis 80 BPM BP Standi ng (Post-Dialysis) 124/97 mmHg Temperature Pre-Dialysis 98 degF Sitting Heart Ra te Post-Dialysis 107 BPM Standing Heart Rate Post-Nusrat lysis 120 BPM Temperature Post-Dialysis 97 .5 degF November 09, 2023 In-Center Hemodialysis Treatment [id number]:13:00.000Z 7093-23-88G71:48:30.000Z BP Sitting (Pre-Dialysis) 153/99 mmHg BP Sitting (Post-Dialysis) 120/92 mmHg Concurrent Access: falseAV Fistula Forearm (Left) Arterial BP Standing (Pre-Dialysis) 146/91 mmHg Sitti ng Heart Rate Post-Dialysis 102 BPM Sitting Heart Rate Pre-Dialysis 86 BPM Temperatu re Post-Dialysis 97.6 degF Standing Heart Rate Pre-Dialysis 80 BPM Temperature Pre-Dialysis 97.9 degF November 07, 2023 In-Center Hemodialysis Treatment 4523-72-18T31:31:00.000Z [id number]:59:52.000Z BP Sitting (Pre-Dialysis) 152/98 mmHg BP Sitting (Post-Dialysis) 120/76 mmHg Concurrent Access: falseAV Fistula Forearm (Left) Arterial BP Standing (Pre-Dialysis) 106/88 mmHg BP Standing (P ost-Dialysis) 131/77 mmHg Sitting Heart Rate Pre-Dialysis 69 BPM Sitting Heart Rate Post-Dialysis 65 BPM Standing Heart Rate Pre-Dialysis 80 BPM Standing Heart Rate Post-Dialysis 68 BPM Temperature Pre-Dialysis 97.9 degF Temperature Post -Dialysis 97.6 degF November 04, 2023 In-Center Hemodialysis Treatment [id number]:13:13.000Z 4942-65-55M53:51:23.000Z BP Sitting (Pre-Dialysis) 157/102 mmHg BP Sitting (Post-Dialysis) 154/93 mmHg Concurrent Access: falseAV Fistula Forearm (Left) Arterial Sitting Heart Rate Pre-Dialysis 108 BPM BP Standing (Post-Dialysis) 131/80 mmHg Temperature Pre-Dialysis 97.9 degF Sitting Heart Ra te Post-Dialysis 80 BPM Standing Heart Rate Post-Nusrat lysis 92 BPM Temperature Post-Dialysis 97 .6 degF November 02, 2023 In-Center Hemodialysis Treatment 4584-06-48U75:44:00.000Z 9448-11-57U49:03:32.000Z BP Sitting (Pre-Dialysis) 148/73 mmHg BP Sitting (Post-Dialysis) 142/107 mmHg Concurrent Access: falseAV Fistula Forearm (Left) Arterial BP Standing (Pre-Dialysis) 133/90 mmHg BP Standing (P ost-Dialysis) 144/78 mmHg Sitting Heart Rate Pre-Dialysis 73 BPM Sitting Heart Rate Post-Dialysis 107 BPM Standing Heart Rate Pre-Dialysis 91 BPM Standing Heart Rate Post-Dialysis 100 BPM Temperature Pre-Dialysis 97.3 degF Temperature Post -Dialysis 97.6 degF October 31, 2023 In-Center Hemodialysis Treatment [id number]:16:00.000Z [id number]:51:32.000Z BP Sitting (Pre-Dialysis) 165/109 mmHg BP Sitting (Post-Dialysis) 123/93 mmHg Concurrent Access: falseAV Fistula Forearm (Left) Arterial BP Standing (Pre-Dialysis) 163/116 mmHg BP Standing (P ost-Dialysis) 107/88 mmHg Sitting Heart Rate Pre-Dialysis 80 BPM Sitting Heart Rate Post-Dialysis 88 BPM Standing Heart Rate Pre-Dialysis 96 BPM Standing Heart Rate Post-Dialysis 88 BPM Temperature Pre-Dialysis 97.5 degF Temperature Post -Dialysis 97.6 degF October 28, 2023 In-Center Hemodialysis Treatment [id number]:29:00.000Z 5968-15-58C05:11:19.000Z BP Sitting (Pre-Dialysis) 156/110 mmHg BP Sitting (Post-Dialysis) 148/119 mmHg Concurrent Access: falseAV Fistula Forearm (Left) Arterial BP Standing (Pre-Dialysis) 148/87 mmHg BP Standing (P ost-Dialysis) 151/64 mmHg Sitting Heart Rate Pre-Dialysis 80 BPM Sitting Heart Rate Post-Dialysis 80 BPM Standing Heart Rate Pre-Dialysis 93 BPM Standing Heart Rate Post-Dialysis 114 BPM Temperature Pre-Dialysis 98.3 degF Temperature Post -Dialysis 97.6 degF October 26, 2023 In-Center Hemodialysis Treatment [id number]:20:00.000Z 7793-57-87Z09:59:24.000Z BP Sitting (Pre-Dialysis) 150/102 mmHg BP Sitting (Post-Dialysis) 124/81 mmHg Concurrent Access: falseAV Fistula Forearm (Left) Arterial BP Standing (Pre-Dialysis) 150/102 mmHg BP Standing (P ost-Dialysis) 112/95 mmHg Sitting Heart Rate Pre-Dialysis 86 BPM Sitting Heart Rate Post-Dialysis 60 BPM Standing Heart Rate Pre-Dialysis 86 BPM Standing Heart Rate Post-Dialysis 97 BPM Temperature Pre-Dialysis 98.3 degF Temperature Post -Dialysis 97.6 degF October 24, 2023 In-Center Hemodialysis Treatment [id number]:08:00.000Z 3986-35-07W34:33:08.000Z BP Sitting (Pre-Dialysis) 170/114 mmHg BP Sitting (Post-Dialysis) 135/92 mmHg Concurrent Access: falseAV Fistula Forearm (Left) Arterial BP Standing (Pre-Dialysis) 154/107 mmHg BP Standing (P ost-Dialysis) 122/82 mmHg Sitting Heart Rate Pre-Dialysis 87 BPM Sitting Heart Rate Post-Dialysis 90 BPM Standing Heart Rate Pre-Dialysis 88 BPM Standing Heart Rate Post-Dialysis 90 BPM Temperature Pre-Dialysis 98.3 degF Temperature Post -Dialysis 98.3 degF October 21, 2023 In-Center Hemodialysis Treatment [id number]:28:00.000Z [id number]:52:52.000Z BP Sitting (Pre-Dialysis) 163/110 mmHg BP Sitting (Post-Dialysis) 118/74 mmHg Concurrent Access: falseAV Fistula Forearm (Left) Arterial BP Standing (Pre-Dialysis) 141/98 mmHg Sitti ng Heart Rate Post-Dialysis 63 BPM Sitting Heart Rate Pre-Dialysis 89 BPM Temperatu re Post-Dialysis 98.3 degF Standing Heart Rate Pre-Dialysis 98 BPM Temperature Pre-Dialysis 98.6 degF October 19, 2023 In-Center Hemodialysis Treatment [id number]:06:00.000Z [id number]:45:23.000Z BP Sitting (Pre-Dialysis) 150/90 mmHg BP Sitting (Post-Dialysis) 132/96 mmHg Concurrent Access: falseAV Fistula Forearm (Left) Arterial BP Standing (Pre-Dialysis) 156/105 mmHg Sitti ng Heart Rate Post-Dialysis 81 BPM Sitting Heart Rate Pre-Dialysis 80 BPM Temperatu re Post-Dialysis 97.5 degF Standing Heart Rate Pre-Dialysis 77 BPM Temperature Pre-Dialysis 97.6 degF October 17, 2023 In-Center Hemodialysis Treatment [id number]:17:00.000Z 8546-39-62E01:40:37.000Z BP Sitting (Pre-Dialysis) 167/107 mmHg BP Sitting (Post-Dialysis) 142/97 mmHg Concurrent Access: falseAV Fistula Forearm (Left) Arterial BP Standing (Pre-Dialysis) 147/111 mmHg Sitti ng Heart Rate Post-Dialysis 80 BPM Sitting Heart Rate Pre-Dialysis 93 BPM Temperatu re Post-Dialysis 97.5 degF Standing Heart Rate Pre-Dialysis 90 BPM Temperature Pre-Dialysis 97.5 degF October 14, 2023 In-Center Hemodialysis Treatment [id number]:21:00.000Z 8379-41-00W79:55:17.000Z BP Sitting (Pre-Dialysis) 150/84 mmHg BP Sitting (Post-Dialysis) 145/100 mmHg Concurrent Access: falseAV Fistula Forearm (Left) Arterial BP Standing (Pre-Dialysis) 161/96 mmHg BP Standing (P ost-Dialysis) 126/89 mmHg Sitting Heart Rate Pre-Dialysis 90 BPM Sitting Heart Rate Post-Dialysis 99 BPM Standing Heart Rate Pre-Dialysis 90 BPM Standing Heart Rate Post-Dialysis 100 BPM Temperature Pre-Dialysis 98.3 degF Temperature Post -Dialysis 97.5 degF October 12, 2023 In-Center Hemodialysis Treatment [id number]:07:00.000Z 4945-41-00F70:40:14.000Z BP Sitting (Pre-Dialysis) 143/98 mmHg BP Sitting (Post-Dialysis) 121/107 mmHg Concurrent Access: falseAV Fistula Forearm (Left) Arterial BP Standing (Pre-Dialysis) 143/98 mmHg BP Standing (P ost-Dialysis) 132/90 mmHg Sitting Heart Rate Pre-Dialysis 70 BPM Sitting Heart Rate Post-Dialysis 93 BPM Standing Heart Rate Pre-Dialysis 73 BPM Standing Heart Rate Post-Dialysis 90 BPM Temperature Pre-Dialysis 98.6 degF Temperature Post -Dialysis 98.2 degF October 10, 2023 In-Center Hemodialysis Treatment [id number]:11:00.000Z 0332-15-06M62:55:01.000Z BP Sitting (Pre-Dialysis) 148/98 mmHg BP Sitting (Post-Dialysis) 138/99 mmHg Concurrent Access: falseAV Fistula Forearm (Left) Arterial BP Standing (Pre-Dialysis) 141/93 mmHg BP Standing (P ost-Dialysis) 122/82 mmHg Sitting Heart Rate Pre-Dialysis 68 BPM Sitting Heart Rate Post-Dialysis 88 BPM Standing Heart Rate Pre-Dialysis 80 BPM Standing Heart Rate Post-Dialysis 95 BPM Temperature Pre-Dialysis 98.6 degF Temperature Post -Dialysis 98.5 degF October 08, 2023 In-Center Hemodialysis Treatment [id number]:40:53.000Z [id number]:56:44.000Z BP Sitting (Pre-Dialysis) 153/107 mmHg BP Sitting (Post-Dialysis) 115/81 mmHg Concurrent Access: falseAV Fistula Forearm (Left) Arterial Sitting Heart Rate Pre-Dialysis 94 BPM BP Standing (Post-Dialysis) 108/90 mmHg Temperature Pre-Dialysis 97.9 degF Sitting Heart Ra te Post-Dialysis 100 BPM Standing Heart Rate Post-Nusrat lysis 99 BPM Temperature Post-Dialysis 98 .3 degF October 05, 2023 In-Center Hemodialysis Treatment [id number]:18:00.000Z 6151-47-00R77:45:30.000Z BP Sitting (Pre-Dialysis) 155/88 mmHg BP Sitting (Post-Dialysis) 113/64 mmHg Concurrent Access: falseAV Fistula Forearm (Left) Arterial BP Standing (Pre-Dialysis) 159/98 mmHg BP Standing (P ost-Dialysis) 106/76 mmHg Sitting Heart Rate Pre-Dialysis 80 BPM Sitting Heart Rate Post-Dialysis 112 BPM Standing Heart Rate Pre-Dialysis 77 BPM Standing Heart Rate Post-Dialysis 97 BPM Temperature Pre-Dialysis 97 degF Temperature Post -Dialysis 98.3 degF October 03, 2023 In-Center Hemodialysis Treatment [id number]:12:00.000Z [id number]:44:34.000Z BP Sitting (Pre-Dialysis) 163/99 mmHg BP Sitting (Post-Dialysis) 135/110 mmHg Concurrent Access: falseAV Fistula Forearm (Left) Arterial BP Standing (Pre-Dialysis) 148/88 mmHg BP Standing (P ost-Dialysis) 132/72 mmHg Sitting Heart Rate Pre-Dialysis 77 BPM Sitting Heart Rate Post-Dialysis 89 BPM Standing Heart Rate Pre-Dialysis 77 BPM Standing Heart Rate Post-Dialysis 80 BPM Temperature Pre-Dialysis 98.6 degF Temperature Post -Dialysis 98.3 degF September 30, 2023 In-Center Hemodialysis Treatment [id number]:14:00.000Z 9584-10-16R24:33:28.000Z BP Sitting (Pre-Dialysis) 148/95 mmHg BP Sitting (Post-Dialysis) 132/96 mmHg Concurrent Access: falseAV Fistula Forearm (Left) Arterial BP Standing (Pre-Dialysis) 145/93 mmHg Sitti ng Heart Rate Post-Dialysis 86 BPM Sitting Heart Rate Pre-Dialysis 80 BPM Temperatu re Post-Dialysis 98.3 degF Standing Heart Rate Pre-Dialysis 93 BPM Temperature Pre-Dialysis 98.6 degF September 28, 2023 In-Center Hemodialysis Treatment [id number]:11:00.000Z 5807-64-07O49:45:26.000Z BP Sitting (Pre-Dialysis) 102/79 mmHg BP Sitting (Post-Dialysis) 136/90 mmHg Concurrent Access: falseAV Fistula Forearm (Left) Arterial BP Standing (Pre-Dialysis) 122/85 mmHg BP Standing (P ost-Dialysis) 146/70 mmHg Sitting Heart Rate Pre-Dialysis 74 BPM Sitting Heart Rate Post-Dialysis 102 BPM Standing Heart Rate Pre-Dialysis 93 BPM Standing Heart Rate Post-Dialysis 82 BPM Temperature Pre-Dialysis 98.6 degF Temperature Post -Dialysis 97.6 degF September 26, 2023 In-Center Hemodialysis Treatment [id number]:17:00.000Z 8235-58-24T15:44:18.000Z BP Sitting (Pre-Dialysis) 140/87 mmHg BP Sitting (Post-Dialysis) 167/102 mmHg Concurrent Access: falseAV Fistula Forearm (Left) Arterial BP Standing (Pre-Dialysis) 152/99 mmHg BP Standing (P ost-Dialysis) 137/91 mmHg Sitting Heart Rate Pre-Dialysis 87 BPM Sitting Heart Rate Post-Dialysis 102 BPM Standing Heart Rate Pre-Dialysis 105 BPM Standing Heart Rate Post-Dialysis 102 BPM Temperature Pre-Dialysis 98.6 degF Temperature Post -Dialysis 97.5 degF September 23, 2023 In-Center Hemodialysis Treatment 6669-04-15K35:06:00.000Z 4601-42-67C38:36:00.000Z BP Sitting (Pre-Dialysis) 119/87 mmHg BP Sitting (Post-Dialysis) 135/69 mmHg Concurrent Access: falseAV Fistula Forearm (Left) Arterial BP Standing (Pre-Dialysis) 111/89 mmHg BP Standing (P ost-Dialysis) 118/77 mmHg Sitting Heart Rate Pre-Dialysis 95 BPM Sitting Heart Rate Post-Dialysis 102 BPM Standing Heart Rate Pre-Dialysis 94 BPM Standing Heart Rate Post-Dialysis 110 BPM Temperature Pre-Dialysis 97.6 degF Temperature Post -Dialysis 97.6 degF September 21, 2023 In-Center Hemodialysis Treatment 0147-78-28P00:07:00.000Z 8402-43-13K93:41:37.000Z BP Sitting (Pre-Dialysis) 153/99 mmHg BP Sitting (Post-Dialysis) 133/89 mmHg Concurrent Access: falseAV Fistula Forearm (Left) Arterial BP Standing (Pre-Dialysis) 144/95 mmHg BP Standing (P ost-Dialysis) 141/84 mmHg Sitting Heart Rate Pre-Dialysis 85 BPM Sitting Heart Rate Post-Dialysis 92 BPM Standing Heart Rate Pre-Dialysis 99 BPM Standing Heart Rate Post-Dialysis 97 BPM Temperature Pre-Dialysis 97.6 degF Temperature Post -Dialysis 98.1 degF September 19, 2023 In-Center Hemodialysis Treatment [id number]:19:00.000Z [id number]:12:45.000Z BP Sitting (Pre-Dialysis) 124/94 mmHg BP Sitting (Post-Dialysis) 142/80 mmHg Concurrent Access: falseAV Fistula Forearm (Left) Arterial BP Standing (Pre-Dialysis) 119/86 mmHg Sitti ng Heart Rate Post-Dialysis 90 BPM Sitting Heart Rate Pre-Dialysis 87 BPM Temperatu re Post-Dialysis 98.1 degF Standing Heart Rate Pre-Dialysis 86 BPM Temperature Pre-Dialysis 98.6 degF September 16, 2023 In-Center Hemodialysis Treatment [id number]:06:00.000Z 1403-03-96H91:38:43.000Z BP Sitting (Pre-Dialysis) 165/88 mmHg BP Sitting (Post-Dialysis) 100/51 mmHg Concurrent Access: falseAV Fistula Forearm (Left) Arterial BP Standing (Pre-Dialysis) 148/100 mmHg BP Standing (P ost-Dialysis) 112/94 mmHg Sitting Heart Rate Pre-Dialysis 80 BPM Sitting Heart Rate Post-Dialysis 103 BPM Standing Heart Rate Pre-Dialysis 104 BPM Standing Heart Rate Post-Dialysis 80 BPM Temperature Pre-Dialysis 98.3 degF Temperature Post -Dialysis 98.1 degF September 15, 2023 In-Center Hemodialysis Treatment [id number]:02:00.000Z [id number]:33:42.000Z BP Sitting (Pre-Dialysis) 102/50 mmHg BP Sitting (Post-Dialysis) 122/85 mmHg Concurrent Access: falseAV Fistula Forearm (Left) Arterial BP Standing (Pre-Dialysis) 135/88 mmHg BP Standing (P ost-Dialysis) 100/77 mmHg Sitting Heart Rate Pre-Dialysis 101 BPM Sitting Heart Rate Post-Dialysis 94 BPM Standing Heart Rate Pre-Dialysis 92 BPM Standing Heart Rate Post-Dialysis 94 BPM Temperature Pre-Dialysis 98.6 degF Temperature Post -Dialysis 98.6 degF September 13, 2023 In-Center Hemodialysis Treatment [id number]:32:00.000Z 7778-93-66K62:05:27.000Z BP Sitting (Pre-Dialysis) 160/98 mmHg BP Sitting (Post-Dialysis) 148/104 mmHg Concurrent Access: falseAV Fistula Forearm (Left) Arterial Sitting Heart Rate Pre-Dialysis 80 BPM Sitting H eart Rate Post-Dialysis 97 BPM Temperature Pre-Dialysis 98.6 degF Temperature Post -Dialysis 98.3 degF September 09, 2023 In-Center Hemodialysis Treatment [id number]:42:00.000Z 9728-15-92E96:05:35.000Z BP Sitting (Pre-Dialysis) 128/86 mmHg BP Sitting (Post-Dialysis) 109/74 mmHg Concurrent Access: falseAV Fistula Forearm (Left) Arterial BP Standing (Pre-Dialysis) 133/80 mmHg BP Standing (P ost-Dialysis) 100/72 mmHg Sitting Heart Rate Pre-Dialysis 95 BPM Sitting Heart Rate Post-Dialysis 70 BPM Standing Heart Rate Pre-Dialysis 88 BPM Standing Heart Rate Post-Dialysis 80 BPM Temperature Pre-Dialysis 98.6 degF Temperature Post -Dialysis 98.3 degF September 08, 2023 In-Center Hemodialysis Treatment [id number]:07:00.000Z 1750-36-54G87:39:14.000Z BP Sitting (Pre-Dialysis) 117/91 mmHg BP Sitting (Post-Dialysis) 122/78 mmHg Concurrent Access: falseAV Fistula Forearm (Left) Arterial BP Standing (Pre-Dialysis) 125/95 mmHg BP Standing (P ost-Dialysis) 131/94 mmHg Sitting Heart Rate Pre-Dialysis 92 BPM Sitting Heart Rate Post-Dialysis 80 BPM Standing Heart Rate Pre-Dialysis 68 BPM Standing Heart Rate Post-Dialysis 82 BPM Temperature Pre-Dialysis 97.9 degF September 06, 2023 In-Center Hemodialysis Treatment [id number]:38:00.000Z 7937-00-84S86:06:26.000Z BP Sitting (Pre-Dialysis) 150/99 mmHg BP Sitting (Post-Dialysis) 149/100 mmHg Concurrent Access: falseAV Fistula Forearm (Left) Arterial BP Standing (Pre-Dialysis) 123/96 mmHg BP Standing (P ost-Dialysis) 137/104 mmHg Sitting Heart Rate Pre-Dialysis 70 BPM Sitting Heart Rate Post-Dialysis 80 BPM Standing Heart Rate Pre-Dialysis 85 BPM Standing Heart Rate Post-Dialysis 83 BPM Temperature Pre-Dialysis 98.6 degF Temperature Post -Dialysis 98.6 degF September 02, 2023 In-Center Hemodialysis Treatment [id number]:54:00.000Z [id number]:58:31.000Z BP Sitting (Pre-Dialysis) 149/99 mmHg BP Sitting (Post-Dialysis) 127/95 mmHg Concurrent Access: falseAV Fistula Forearm (Left) Arterial BP Standing (Pre-Dialysis) 134/93 mmHg Sitti ng Heart Rate Post-Dialysis 85 BPM Sitting Heart Rate Pre-Dialysis 80 BPM Temperatu re Post-Dialysis 98.3 degF Standing Heart Rate Pre-Dialysis 80 BPM Temperature Pre-Dialysis 98.5 degF September 01, 2023 In-Center Hemodialysis Treatment [id number]:26:00.000Z [id number]:54:04.000Z BP Sitting (Pre-Dialysis) 139/108 mmHg BP Sitting (Post-Dialysis) 128/98 mmHg Concurrent Access: falseAV Fistula Forearm (Left) Arterial BP Standing (Pre-Dialysis) 121/90 mmHg Sitti ng Heart Rate Post-Dialysis 82 BPM Sitting Heart Rate Pre-Dialysis 60 BPM Temperatu re Post-Dialysis 97.5 degF Standing Heart Rate Pre-Dialysis 82 BPM Temperature Pre-Dialysis 97.6 degF August 30, 2023 In-Center Hemodialysis Treatment [id number]:39:23.000Z [id number]:15:53.000Z BP Sitting (Pre-Dialysis) 179/105 mmHg BP Sitting (Post-Dialysis) 137/91 mmHg Concurrent Access: falseAV Fistula Forearm (Left) Arterial BP Standing (Pre-Dialysis) 165/94 mmHg BP Standing (P ost-Dialysis) 131/85 mmHg Sitting Heart Rate Pre-Dialysis 80 BPM Sitting Heart Rate Post-Dialysis 80 BPM Standing Heart Rate Pre-Dialysis 85 BPM Standing Heart Rate Post-Dialysis 95 BPM Temperature Pre-Dialysis 97.6 degF Temperature Post -Dialysis 97.5 degF August 27, 2023 In-Center Hemodialysis Treatment [id number]:24:00.000Z [id number]:57:50.000Z BP Sitting (Pre-Dialysis) 159/98 mmHg BP Sitting (Post-Dialysis) 119/80 mmHg Concurrent Access: falseAV Fistula Forearm (Left) Arterial BP Standing (Pre-Dialysis) 128/80 mmHg BP Standing (P ost-Dialysis) 107/78 mmHg Sitting Heart Rate Pre-Dialysis 90 BPM Sitting Heart Rate Post-Dialysis 65 BPM Standing Heart Rate Pre-Dialysis 90 BPM Standing Heart Rate Post-Dialysis 82 BPM Temperature Pre-Dialysis 97.6 degF Temperature Post -Dialysis 97.6 degF August 25, 2023 In-Center Hemodialysis Treatment [id number]:08:00.000Z [id number]:51:10.000Z BP Sitting (Pre-Dialysis) 129/64 mmHg BP Sitting (Post-Dialysis) 145/74 mmHg Concurrent Access: falseAV Fistula Forearm (Left) Arterial BP Standing (Pre-Dialysis) 135/89 mmHg Sitti ng Heart Rate Post-Dialysis 109 BPM Sitting Heart Rate Pre-Dialysis 87 BPM Temperatu re Post-Dialysis 98.3 degF Standing Heart Rate Pre-Dialysis 73 BPM Temperature Pre-Dialysis 97.6 degF August 23, 2023 In-Center Hemodialysis Treatment [id number]:41:00.000Z [id number]:20:56.000Z BP Sitting (Pre-Dialysis) 138/88 mmHg BP Sitting (Post-Dialysis) 140/95 mmHg Concurrent Access: falseAV Fistula Forearm (Left) Arterial BP Standing (Pre-Dialysis) 141/88 mmHg Sitti ng Heart Rate Post-Dialysis 89 BPM Sitting Heart Rate Pre-Dialysis 68 BPM Temperatu re Post-Dialysis 97.4 degF Standing Heart Rate Pre-Dialysis 81 BPM Temperature Pre-Dialysis 97.6 degF August 20, 2023 In-Center Hemodialysis Treatment [id number]:48:00.000Z [id number]:18:15.000Z BP Sitting (Pre-Dialysis) 152/102 mmHg BP Sitting (Post-Dialysis) 127/78 mmHg Concurrent Access: falseAV Fistula Forearm (Left) Arterial BP Standing (Pre-Dialysis) 167/110 mmHg BP Standing (P ost-Dialysis) 145/59 mmHg Sitting Heart Rate Pre-Dialysis 69 BPM Sitting Heart Rate Post-Dialysis 86 BPM Standing Heart Rate Pre-Dialysis 86 BPM Standing Heart Rate Post-Dialysis 96 BPM Temperature Pre-Dialysis 97.6 degF Temperature Post -Dialysis 97.4 degF August 18, 2023 In-Center Hemodialysis Treatment [id number]:07:00.000Z [id number]:50:29.000Z BP Sitting (Pre-Dialysis) 149/85 mmHg BP Sitting (Post-Dialysis) 116/68 mmHg Concurrent Access: falseAV Fistula Forearm (Left) Arterial BP Standing (Pre-Dialysis) 125/66 mmHg BP Standing (P ost-Dialysis) 120/69 mmHg Sitting Heart Rate Pre-Dialysis 86 BPM Sitting Heart Rate Post-Dialysis 80 BPM Standing Heart Rate Pre-Dialysis 108 BPM Standing Heart Rate Post-Dialysis 82 BPM Temperature Pre-Dialysis 97.6 degF Temperature Post -Dialysis 97.3 degF August 16, 2023 In-Center Hemodialysis Treatment [id number]:39:00.000Z [id number]:13:15.000Z BP Sitting (Pre-Dialysis) 128/77 mmHg BP Sitting (Post-Dialysis) 121/78 mmHg Concurrent Access: falseAV Fistula Forearm (Left) Arterial BP Standing (Pre-Dialysis) 118/82 mmHg BP Standing (P ost-Dialysis) 129/69 mmHg Sitting Heart Rate Pre-Dialysis 80 BPM Sitting Heart Rate Post-Dialysis 85 BPM Standing Heart Rate Pre-Dialysis 80 BPM Standing Heart Rate Post-Dialysis 97 BPM Temperature Pre-Dialysis 97.6 degF Temperature Post -Dialysis 97.3 degF August 13, 2023 In-Center Hemodialysis Treatment [id number]:15:00.000Z 1910-91-71W98:00:42.000Z BP Sitting (Pre-Dialysis) 155/93 mmHg BP Sitting (Post-Dialysis) 133/97 mmHg Concurrent Access: falseAV Fistula Forearm (Left) Arterial BP Standing (Pre-Dialysis) 142/83 mmHg Sitti ng Heart Rate Post-Dialysis 95 BPM Sitting Heart Rate Pre-Dialysis 72 BPM Temperatu re Post-Dialysis 97.3 degF Standing Heart Rate Pre-Dialysis 96 BPM Temperature Pre-Dialysis 97.6 degF August 11, 2023 In-Center Hemodialysis Treatment [id number]:44:00.000Z [id number]:15:00.000Z BP Sitting (Pre-Dialysis) 163/109 mmHg BP Sitting (Post-Dialysis) 139/108 mmHg Concurrent Access: falseAV Fistula Forearm (Left) Arterial BP Standing (Pre-Dialysis) 103/85 mmHg Sitti ng Heart Rate Post-Dialysis 86 BPM Sitting Heart Rate Pre-Dialysis 80 BPM Temperatu re Post-Dialysis 98.3 degF Standing Heart Rate Pre-Dialysis 71 BPM Temperature Pre-Dialysis 97.3 degF August 09, 2023 In-Center Hemodialysis Treatment [id number]:36:25.000Z [id number]:27:55.000Z BP Sitting (Pre-Dialysis) 153/93 mmHg BP Sitting (Post-Dialysis) 166/109 mmHg Concurrent Access: falseAV Fistula Forearm (Left) Arterial BP Standing (Pre-Dialysis) 156/96 mmHg BP Standing (P ost-Dialysis) 171/99 mmHg Sitting Heart Rate Pre-Dialysis 88 BPM Sitting Heart Rate Post-Dialysis 80 BPM Standing Heart Rate Pre-Dialysis 85 BPM Standing Heart Rate Post-Dialysis 60 BPM Temperature Pre-Dialysis 97.3 degF Temperature Post -Dialysis 98.3 degF August 06, 2023 In-Center Hemodialysis Treatment [id number]:34:00.000Z [id number]:55:48.000Z BP Sitting (Pre-Dialysis) 169/111 mmHg BP Sitting (Post-Dialysis) 126/68 mmHg Concurrent Access: falseAV Fistula Forearm (Left) Arterial BP Standing (Pre-Dialysis) 170/113 mmHg BP Standing (P ost-Dialysis) 110/72 mmHg Sitting Heart Rate Pre-Dialysis 88 BPM Sitting Heart Rate Post-Dialysis 80 BPM Standing Heart Rate Pre-Dialysis 92 BPM Standing Heart Rate Post-Dialysis 98 BPM Temperature Pre-Dialysis 98.3 degF Temperature Post -Dialysis 97.6 degF August 04, 2023 In-Center Hemodialysis Treatment [id number]:16:00.000Z 7723-26-32K94:23:44.000Z BP Sitting (Pre-Dialysis) 158/85 mmHg BP Sitting (Post-Dialysis) 136/105 mmHg Concurrent Access: falseAV Fistula Forearm (Left) Arterial BP Standing (Pre-Dialysis) 129/83 mmHg Sitti ng Heart Rate Post-Dialysis 80 BPM Sitting Heart Rate Pre-Dialysis 80 BPM Temperatu re Post-Dialysis 97.6 degF Standing Heart Rate Pre-Dialysis 97 BPM Temperature Pre-Dialysis 97.9 degF August 02, 2023 In-Center Hemodialysis Treatment [id number]:48:00.000Z 1930-88-08N42:29:09.000Z BP Sitting (Pre-Dialysis) 159/101 mmHg BP Sitting (Post-Dialysis) 153/101 mmHg Concurrent Access: falseAV Fistula Forearm (Left) Arterial BP Standing (Pre-Dialysis) 156/96 mmHg Sitti ng Heart Rate Post-Dialysis 74 BPM Sitting Heart Rate Pre-Dialysis 80 BPM Temperatu re Post-Dialysis 97.6 degF Standing Heart Rate Pre-Dialysis 85 BPM Temperature Pre-Dialysis 97.9 degF August 01, 2023 Sequential Treatment [id number]:47:00.000Z 7017-82-13K08:31:00.000Z BP Sitting (Pre-Dialysis) 158/106 mmHg BP Sitting (Post-Dialysis) 133/92 mmHg Concurrent Access: falseAV Fistula Forearm (Left) Arterial BP Standing (Pre-Dialysis) 150/91 mmHg Sitti ng Heart Rate Post-Dialysis 96 BPM Sitting Heart Rate Pre-Dialysis 82 BPM Temperatu re Post-Dialysis 97.6 degF Standing Heart Rate Pre-Dialysis 107 BPM Temperature Pre-Dialysis 97.5 degF July 30, 2023 In-Center Hemodialysis Treatment [id number]:16:00.000Z 0672-73-77R76:49:13.000Z BP Sitting (Pre-Dialysis) 124/95 mmHg BP Sitting (Post-Dialysis) 150/99 mmHg Concurrent Access: falseAV Fistula Forearm (Left) Arterial BP Standing (Pre-Dialysis) 133/95 mmHg BP Standing (P ost-Dialysis) 131/86 mmHg Sitting Heart Rate Pre-Dialysis 72 BPM Sitting Heart Rate Post-Dialysis 67 BPM Standing Heart Rate Pre-Dialysis 80 BPM Standing Heart Rate Post-Dialysis 109 BPM Temperature Pre-Dialysis 97.6 degF Temperature Post -Dialysis 97.6 degF July 28, 2023 In-Center Hemodialysis Treatment [id number]:49:00.000Z 7206-76-21V80:16:54.000Z BP Sitting (Pre-Dialysis) 157/109 mmHg BP Sitting (Post-Dialysis) 138/93 mmHg Concurrent Access: falseAV Fistula Forearm (Left) Arterial BP Standing (Pre-Dialysis) 153/99 mmHg BP Standing (P ost-Dialysis) 136/70 mmHg Sitting Heart Rate Pre-Dialysis 85 BPM Sitting Heart Rate Post-Dialysis 86 BPM Standing Heart Rate Pre-Dialysis 106 BPM Standing Heart Rate Post-Dialysis 93 BPM Temperature Pre-Dialysis 98.1 degF July 26, 2023 In-Center Hemodialysis Treatment [id number]:29:00.000Z 7020-61-67N70:04:26.000Z BP Sitting (Pre-Dialysis) 170/108 mmHg BP Sitting (Post-Dialysis) 168/114 mmHg Concurrent Access: falseAV Fistula Forearm (Left) Arterial BP Standing (Pre-Dialysis) 170/108 mmHg BP Standing (P ost-Dialysis) 122/48 mmHg Sitting Heart Rate Pre-Dialysis 86 BPM Sitting Heart Rate Post-Dialysis 74 BPM Standing Heart Rate Pre-Dialysis 86 BPM Standing Heart Rate Post-Dialysis 54 BPM Temperature Pre-Dialysis 98 degF Temperature Post -Dialysis 98.3 degF July 23, 2023 In-Center Hemodialysis Treatment [id number]:25:00.000Z [id number]:57:47.000Z BP Sitting (Pre-Dialysis) 160/99 mmHg BP Sitting (Post-Dialysis) 122/89 mmHg Concurrent Access: falseAV Fistula Forearm (Left) Arterial BP Standing (Pre-Dialysis) 146/80 mmHg BP Standing (P ost-Dialysis) 123/67 mmHg Sitting Heart Rate Pre-Dialysis 80 BPM Sitting Heart Rate Post-Dialysis 66 BPM Standing Heart Rate Pre-Dialysis 92 BPM Standing Heart Rate Post-Dialysis 66 BPM Temperature Pre-Dialysis 98.3 degF Temperature Post -Dialysis 98.3 degF July 21, 2023 In-Center Hemodialysis Treatment 1211-04-58G12:36:00.000Z 9605-05-90F65:10:49.000Z BP Sitting (Pre-Dialysis) 110/95 mmHg BP Sitting (Post-Dialysis) 133/87 mmHg Concurrent Access: falseAV Fistula Forearm (Left) Arterial BP Standing (Pre-Dialysis) 156/100 mmHg BP Standing (P ost-Dialysis) 109/70 mmHg Sitting Heart Rate Pre-Dialysis 80 BPM Sitting Heart Rate Post-Dialysis 80 BPM Standing Heart Rate Pre-Dialysis 88 BPM Standing Heart Rate Post-Dialysis 80 BPM Temperature Pre-Dialysis 98.1 degF Temperature Post -Dialysis 97.3 degF July 19, 2023 In-Center Hemodialysis Treatment [id number]:17:00.000Z 6358-36-19A94:49:27.000Z BP Sitting (Pre-Dialysis) 180/115 mmHg BP Sitting (Post-Dialysis) 169/104 mmHg Concurrent Access: falseAV Fistula Forearm (Left) Arterial BP Standing (Pre-Dialysis) 172/118 mmHg Sitti ng Heart Rate Post-Dialysis 80 BPM Sitting Heart Rate Pre-Dialysis 90 BPM Temperatu re Post-Dialysis 97.3 degF Standing Heart Rate Pre-Dialysis 88 BPM Temperature Pre-Dialysis 98.1 degF July 16, 2023 In-Center Hemodialysis Treatment [id number]:30:00.000Z [id number]:54:31.000Z BP Sitting (Pre-Dialysis) 176/109 mmHg BP Sitting (Post-Dialysis) 150/99 mmHg Concurrent Access: falseAV Fistula Forearm (Left) Arterial BP Standing (Pre-Dialysis) 168/112 mmHg Sitti ng Heart Rate Post-Dialysis 120 BPM Sitting Heart Rate Pre-Dialysis 92 BPM Temperatu re Post-Dialysis 97.3 degF Standing Heart Rate Pre-Dialysis 102 BPM Temperature Pre-Dialysis 98.1 degF July 14, 2023 In-Center Hemodialysis Treatment [id number]:34:00.000Z 8077-36-52Q24:02:34.000Z BP Sitting (Pre-Dialysis) 176/108 mmHg BP Sitting (Post-Dialysis) 121/82 mmHg Concurrent Access: falseAV Fistula Forearm (Left) Arterial BP Standing (Pre-Dialysis) 151/101 mmHg BP Standing (P ost-Dialysis) 114/78 mmHg Sitting Heart Rate Pre-Dialysis 72 BPM Sitting Heart Rate Post-Dialysis 88 BPM Standing Heart Rate Pre-Dialysis 80 BPM Standing Heart Rate Post-Dialysis 90 BPM Temperature Pre-Dialysis 98.3 degF Temperature Post -Dialysis 98.3 degF July 13, 2023 In-Center Hemodialysis Treatment [id number]:41:00.000Z 7892-48-21I45:13:48.000Z BP Sitting (Pre-Dialysis) 162/113 mmHg BP Sitting (Post-Dialysis) 160/91 mmHg Concurrent Access: falseAV Fistula Forearm (Left) Arterial BP Standing (Pre-Dialysis) 156/113 mmHg BP Standing (P ost-Dialysis) 120/72 mmHg Sitting Heart Rate Pre-Dialysis 68 BPM Sitting Heart Rate Post-Dialysis 82 BPM Standing Heart Rate Pre-Dialysis 82 BPM Standing Heart Rate Post-Dialysis 89 BPM Temperature Pre-Dialysis 98.3 degF Temperature Post -Dialysis 98.3 degF July 09, 2023 In-Center Hemodialysis Treatment [id number]:52:00.000Z 2688-78-05X46:23:29.000Z BP Sitting (Pre-Dialysis) 164/107 mmHg BP Sitting (Post-Dialysis) 156/103 mmHg Concurrent Access: falseAV Fistula Forearm (Left) Arterial BP Standing (Pre-Dialysis) 171/105 mmHg Sitti ng Heart Rate Post-Dialysis 80 BPM Sitting Heart Rate Pre-Dialysis 87 BPM Temperatu re Post-Dialysis 97.5 degF Standing Heart Rate Pre-Dialysis 89 BPM Temperature Pre-Dialysis 97.6 degF July 07, 2023 In-Center Hemodialysis Treatment 3027-49-79P69:26:00.000Z 4051-70-42R63:17:23.000Z BP Sitting (Pre-Dialysis) 175/101 mmHg BP Sitting (Post-Dialysis) 122/87 mmHg Concurrent Access: falseAV Fistula Forearm (Left) Arterial BP Standing (Pre-Dialysis) 165/86 mmHg BP Standing (P ost-Dialysis) 117/86 mmHg Sitting Heart Rate Pre-Dialysis 91 BPM Sitting Heart Rate Post-Dialysis 92 BPM Standing Heart Rate Pre-Dialysis 80 BPM Standing Heart Rate Post-Dialysis 110 BPM Temperature Pre-Dialysis 97.3 degF Temperature Post -Dialysis 97.6 degF July 06, 2023 In-Center Hemodialysis Treatment [id number]:33:00.000Z 2624-25-58I73:10:45.000Z BP Sitting (Pre-Dialysis) 162/111 mmHg BP Sitting (Post-Dialysis) 158/109 mmHg Concurrent Access: falseAV Fistula Forearm (Left) Arterial BP Standing (Pre-Dialysis) 167/91 mmHg BP Standing (P ost-Dialysis) 110/80 mmHg Sitting Heart Rate Pre-Dialysis 80 BPM Sitting Heart Rate Post-Dialysis 92 BPM Standing Heart Rate Pre-Dialysis 86 BPM Standing Heart Rate Post-Dialysis 94 BPM Temperature Pre-Dialysis 97.3 degF Temperature Post -Dialysis 97 degF July 02, 2023 In-Center Hemodialysis Treatment [id number]:10:00.000Z [id number]:29:05.000Z BP Sitting (Pre-Dialysis) 165/111 mmHg BP Sitting (Post-Dialysis) 135/112 mmHg Concurrent Access: falseAV Fistula Forearm (Left) Arterial BP Standing (Pre-Dialysis) 160/105 mmHg BP Standing (P ost-Dialysis) 117/79 mmHg Sitting Heart Rate Pre-Dialysis 80 BPM Sitting Heart Rate Post-Dialysis 80 BPM Standing Heart Rate Pre-Dialysis 92 BPM Standing Heart Rate Post-Dialysis 91 BPM Temperature Pre-Dialysis 96.6 degF Temperature Post -Dialysis 96.6 degF June 30, 2023 In-Center Hemodialysis Treatment 0813-36-26E24:25:00.000Z [id number]:04:42.000Z BP Sitting (Pre-Dialysis) 183/116 mmHg BP Sitting (Post-Dialysis) 163/111 mmHg Concurrent Access: falseAV Fistula Forearm (Left) Arterial BP Standing (Pre-Dialysis) 174/122 mmHg Sitti ng Heart Rate Post-Dialysis 85 BPM Sitting Heart Rate Pre-Dialysis 86 BPM Temperatu re Post-Dialysis 98.3 degF Standing Heart Rate Pre-Dialysis 96 BPM Temperature Pre-Dialysis 98.5 degF June 28, 2023 In-Center Hemodialysis Treatment [id number]:36:00.000Z [id number]:08:17.000Z BP Sitting (Pre-Dialysis) 173/103 mmHg BP Sitting (Post-Dialysis) 138/99 mmHg Concurrent Access: falseAV Fistula Forearm (Left) Arterial BP Standing (Pre-Dialysis) 168/109 mmHg BP Standing (P ost-Dialysis) 110/80 mmHg Sitting Heart Rate Pre-Dialysis 88 BPM Sitting Heart Rate Post-Dialysis 96 BPM Standing Heart Rate Pre-Dialysis 94 BPM Standing Heart Rate Post-Dialysis 100 BPM Temperature Pre-Dialysis 97.5 degF Temperature Post -Dialysis 97.6 degF June 27, 2023 Additional Day Of Dialysis Treatment [id number]:20:00.000Z 6663-48-34R16:09:54.000Z BP Sitting (Pre-Dialysis) 166/118 mmHg BP Sitting (Post-Dialysis) 165/114 mmHg Concurrent Access: falseAV Fistula Forearm (Left) Arterial BP Standing (Pre-Dialysis) 159/111 mmHg BP Standing (P ost-Dialysis) 165/113 mmHg Sitting Heart Rate Pre-Dialysis 77 BPM Sitting Heart Rate Post-Dialysis 80 BPM Standing Heart Rate Pre-Dialysis 85 BPM Standing Heart Rate Post-Dialysis 97 BPM Temperature Pre-Dialysis 97.5 degF Temperature Post -Dialysis 97.6 degF June 23, 2023 In-Center Hemodialysis Treatment [id number]:19:00.000Z 0843-14-70P98:54:00.000Z BP Sitting (Pre-Dialysis) 163/90 mmHg BP Sitting (Post-Dialysis) 143/62 mmHg Concurrent Access: falseAV Fistula Forearm (Left) Arterial BP Standing (Pre-Dialysis) 158/97 mmHg BP Standing (P ost-Dialysis) 135/73 mmHg Sitting Heart Rate Pre-Dialysis 97 BPM Sitting Heart Rate Post-Dialysis 62 BPM Standing Heart Rate Pre-Dialysis 102 BPM Standing Heart Rate Post-Dialysis 80 BPM Temperature Pre-Dialysis 97.5 degF Temperature Post -Dialysis 97.3 degF June 21, 2023 In-Center Hemodialysis Treatment [id number]:16:00.000Z [id number]:17:35.000Z BP Sitting (Pre-Dialysis) 169/113 mmHg BP Sitting (Post-Dialysis) 151/99 mmHg Concurrent Access: falseAV Fistula Forearm (Left) Arterial BP Standing (Pre-Dialysis) 173/109 mmHg BP Standing (P ost-Dialysis) 110/74 mmHg Sitting Heart Rate Pre-Dialysis 82 BPM Sitting Heart Rate Post-Dialysis 90 BPM Standing Heart Rate Pre-Dialysis 80 BPM Standing Heart Rate Post-Dialysis 109 BPM Temperature Pre-Dialysis 97.3 degF Temperature Post -Dialysis 97.6 degF June 18, 2023 In-Center Hemodialysis Treatment 1707-90-31Y66:08:00.000Z 2032-06-75L90:41:00.000Z BP Sitting (Pre-Dialysis) 178/113 mmHg BP Sitting (Post-Dialysis) 150/92 mmHg Concurrent Access: falseAV Fistula Forearm (Left) ArterialCentral Venous Catheter (CVC) Subclavian (Right) Venous BP Standing (Pre-Dialysis) 161/100 mmHg Sitti ng Heart Rate Post-Dialysis 82 BPM Sitting Heart Rate Pre-Dialysis 80 BPM Temperatu re Post-Dialysis 97.8 degF Standing Heart Rate Pre-Dialysis 95 BPM Temperature Pre-Dialysis 97.3 degF June 16, 2023 In-Center Hemodialysis Treatment 0501-71-31O37:34:30.000Z 9619-77-16F96:04:04.000Z BP Sitting (Pre-Dialysis) 185/116 mmHg BP Sitting (Post-Dialysis) 142/89 mmHg Concurrent Access: falseAV Fistula Forearm (Left) ArterialCentral Venous Catheter (CVC) Subclavian (Right) Venous BP Standing (Pre-Dialysis) 176/110 mmHg BP Standing (P ost-Dialysis) 169/78 mmHg Sitting Heart Rate Pre-Dialysis 82 BPM Sitting Heart Rate Post-Dialysis 70 BPM Standing Heart Rate Pre-Dialysis 87 BPM Standing Heart Rate Post-Dialysis 98 BPM Temperature Pre-Dialysis 98.3 degF Temperature Post -Dialysis 98 degF June 14, 2023 In-Center Hemodialysis Treatment 4069-70-72W99:02:00.000Z 8671-80-90S61:36:39.000Z BP Sitting (Pre-Dialysis) 178/118 mmHg BP Sitting (Post-Dialysis) 143/98 mmHg Concurrent Access: falseAV Fistula Forearm (Left) ArterialCentral Venous Catheter (CVC) Subclavian (Right) Venous BP Standing (Pre-Dialysis) 201/151 mmHg Sitti ng Heart Rate Post-Dialysis 68 BPM Sitting Heart Rate Pre-Dialysis 80 BPM Temperatu re Post-Dialysis 98 degF Standing Heart Rate Pre-Dialysis 89 BPM Temperature Pre-Dialysis 98.6 degF June 11, 2023 In-Center Hemodialysis Treatment [id number]:55:00.000Z 5375-86-85Q78:26:35.000Z BP Sitting (Pre-Dialysis) 156/103 mmHg BP Sitting (Post-Dialysis) 138/84 mmHg Concurrent Access: falseAV Fistula Forearm (Left) ArterialCentral Venous Catheter (CVC) Subclavian (Right) Venous BP Standing (Pre-Dialysis) 149/101 mmHg BP Standing (P ost-Dialysis) 144/82 mmHg Sitting Heart Rate Pre-Dialysis 101 BPM Sitting Heart Rate Post-Dialysis 80 BPM Standing Heart Rate Pre-Dialysis 102 BPM Standing Heart Rate Post-Dialysis 82 BPM Temperature Pre-Dialysis 98.7 degF Temperature Post -Dialysis 98 degF June 09, 2023 In-Center Hemodialysis Treatment [id number]:48:00.000Z 6374-69-11Q63:19:00.000Z BP Sitting (Pre-Dialysis) 181/80 mmHg BP Sitting (Post-Dialysis) 134/87 mmHg Concurrent Access: falseAV Fistula Forearm (Left) ArterialCentral Venous Catheter (CVC) Subclavian (Right) Venous BP Standing (Pre-Dialysis) 126/72 mmHg BP Standing (P ost-Dialysis) 117/74 mmHg Sitting Heart Rate Pre-Dialysis 111 BPM Sitting Heart Rate Post-Dialysis 109 BPM Standing Heart Rate Pre-Dialysis 120 BPM Standing Heart Rate Post-Dialysis 100 BPM Temperature Pre-Dialysis 97.3 degF Temperature Post -Dialysis 97.6 degF June 07, 2023 In-Center Hemodialysis Treatment [id number]:05:00.000Z 2987-68-41O35:44:00.000Z BP Sitting (Pre-Dialysis) 158/101 mmHg BP Sitting (Post-Dialysis) 149/88 mmHg Concurrent Access: falseAV Fistula Forearm (Left) ArterialCentral Venous Catheter (CVC) Subclavian (Right) Venous BP Standing (Pre-Dialysis) 157/101 mmHg BP Standing (P ost-Dialysis) 118/79 mmHg Sitting Heart Rate Pre-Dialysis 99 BPM Sitting Heart Rate Post-Dialysis 87 BPM Standing Heart Rate Pre-Dialysis 94 BPM Standing Heart Rate Post-Dialysis 109 BPM Temperature Pre-Dialysis 97.3 degF Temperature Post -Dialysis 97.6 degF June 04, 2023 In-Center Hemodialysis Treatment 0159-15-30L64:30:00.000Z 5331-86-65F30:04:06.000Z BP Sitting (Pre-Dialysis) 172/117 mmHg BP Sitting (Post-Dialysis) 162/110 mmHg Concurrent Access: falseAV Fistula Forearm (Left) ArterialCentral Venous Catheter (CVC) Subclavian (Right) Venous BP Standing (Pre-Dialysis) 203/124 mmHg BP Standing (P ost-Dialysis) 162/113 mmHg Sitting Heart Rate Pre-Dialysis 80 BPM Sitting Heart Rate Post-Dialysis 94 BPM Standing Heart Rate Pre-Dialysis 96 BPM Standing Heart Rate Post-Dialysis 96 BPM Temperature Pre-Dialysis 96.9 degF Temperature Post -Dialysis 97.4 degF June 02, 2023 In-Center Hemodialysis Treatment [id number]:48:00.000Z 5552-22-31H26:18:25.000Z BP Sitting (Pre-Dialysis) 173/114 mmHg BP Sitting (Post-Dialysis) 150/103 mmHg Concurrent Access: trueAV Fistula Forearm (Left) ArterialCentral Venous Catheter (CVC) Subclavian (Right) Venous BP Standing (Pre-Dialysis) 166/110 mmHg BP Standing (P ost-Dialysis) 127/67 mmHg Sitting Heart Rate Pre-Dialysis 80 BPM Sitting Heart Rate Post-Dialysis 77 BPM Standing Heart Rate Pre-Dialysis 92 BPM Standing Heart Rate Post-Dialysis 94 BPM Temperature Pre-Dialysis 98 degF Temperature Post -Dialysis 98.6 degF May 31, 2023 In-Center Hemodialysis Treatment 8033-66-08S75:20:00.000Z 3380-85-28J00:55:49.000Z BP Sitting (Pre-Dialysis) 170/122 mmHg BP Sitting (Post-Dialysis) 125/94 mmHg Concurrent Access: trueAV Fistula Forearm (Left) ArterialCentral Venous Catheter (CVC) Subclavian (Right) Venous BP Standing (Pre-Dialysis) 151/115 mmHg BP Standing (P ost-Dialysis) 121/81 mmHg Sitting Heart Rate Pre-Dialysis 80 BPM Sitting Heart Rate Post-Dialysis 80 BPM Standing Heart Rate Pre-Dialysis 80 BPM Standing Heart Rate Post-Dialysis 97 BPM Temperature Pre-Dialysis 98 degF Temperature Post -Dialysis 98 degF May 28, 2023 InCenter Hemodialysis Treatment 1403-94-59W31:37:04.000Z 8651-80-72S47:22:39.000Z BP Sitting (Pre-Dialysis) 169/110 mmHg BP Sitting (Post-Dialysis) 158/102 mmHg Concurrent Access: trueAV Fistula Forearm (Left) ArterialCentral Venous Catheter (CVC) Subclavian (Right) Venous BP Standing (Pre-Dialysis) 184/115 mmHg BP Standing (P ost-Dialysis) 162/88 mmHg Sitting Heart Rate Pre-Dialysis 77 BPM Sitting Heart Rate Post-Dialysis 80 BPM Standing Heart Rate Pre-Dialysis 80 BPM Standing Heart Rate Post-Dialysis 108 BPM Temperature Pre-Dialysis 98 degF Temperature Post -Dialysis 97.5 degF May 26, 2023 InCenter Hemodialysis Treatment [id number]:38:00.000Z 7764-58-76X96:30:00.000Z BP Sitting (Pre-Dialysis) 131/103 mmHg BP Sitting (Post-Dialysis) 158/109 mmHg Concurrent Access: trueAV Fistula Forearm (Left) ArterialAV Fistula Forearm (Left) Venous BP Standing (Pre-Dialysis) 157/123 mmHg BP Standing (P ost-Dialysis) 122/94 mmHg Sitting Heart Rate Pre-Dialysis 80 BPM Sitting Heart Rate Post-Dialysis 93 BPM Standing Heart Rate Pre-Dialysis 80 BPM Standing Heart Rate Post-Dialysis 98 BPM Temperature Pre-Dialysis 98 degF Temperature Post -Dialysis 97.3 degF May 24, 2023 In-Center Hemodialysis Treatment 5653-35-09E81:27:00.000Z [id number]:07:32.000Z BP Sitting (Pre-Dialysis) 172/116 mmHg BP Sitting (Post-Dialysis) 156/99 mmHg Concurrent Access: falseCentral Venous Catheter (CVC) Subclavian (Right) ArterialAV Fistula Forearm (Left) Venous BP Standing (Pre-Dialysis) 164/106 mmHg BP Standing (P ost-Dialysis) 117/82 mmHg Sitting Heart Rate Pre-Dialysis 70 BPM Sitting Heart Rate Post-Dialysis 97 BPM Standing Heart Rate Pre-Dialysis 80 BPM Standing Heart Rate Post-Dialysis 103 BPM Temperature Pre-Dialysis 98.3 degF Temperature Post -Dialysis 97.3 degF May 21, 2023 In-Center Hemodialysis Treatment [id number]:36:00.000Z 5008-23-93L46:06:21.000Z BP Sitting (Pre-Dialysis) 111/86 mmHg BP Sitting (Post-Dialysis) 167/111 mmHg Concurrent Access: falseCentral Venous Catheter (CVC) Subclavian (Right) ArterialAV Fistula Forearm (Left) Venous BP Standing (Pre-Dialysis) 113/66 mmHg BP Standing (P ost-Dialysis) 166/111 mmHg Sitting Heart Rate Pre-Dialysis 96 BPM Sitting Heart Rate Post-Dialysis 85 BPM Standing Heart Rate Pre-Dialysis 80 BPM Standing Heart Rate Post-Dialysis 106 BPM Temperature Pre-Dialysis 97.6 degF Temperature Post -Dialysis 97.5 degF May 19, 2023 In-Center Hemodialysis Treatment [id number]:27:00.000Z [id number]:14:38.000Z BP Sitting (Pre-Dialysis) 181/118 mmHg BP Sitting (Post-Dialysis) 121/85 mmHg Concurrent Access: falseCentral Venous Catheter (CVC) Subclavian (Right) ArterialAV Fistula Forearm (Left) Venous BP Standing (Pre-Dialysis) 180/118 mmHg BP Standing (P ost-Dialysis) 117/96 mmHg Sitting Heart Rate Pre-Dialysis 80 BPM Sitting Heart Rate Post-Dialysis 105 BPM Standing Heart Rate Pre-Dialysis 80 BPM Standing Heart Rate Post-Dialysis 160 BPM Temperature Pre-Dialysis 98.6 degF May 17, 2023 In-Center Hemodialysis Treatment [id number]:33:00.000Z [id number]:53:36.000Z BP Sitting (Pre-Dialysis) 153/102 mmHg BP Sitting (Post-Dialysis) 160/57 mmHg Concurrent Access: falseCentral Venous Catheter (CVC) Subclavian (Right) ArterialAV Fistula Forearm (Left) Venous BP Standing (Pre-Dialysis) 155/97 mmHg BP Standing (P ost-Dialysis) 109/87 mmHg Sitting Heart Rate Pre-Dialysis 67 BPM Sitting Heart Rate Post-Dialysis 80 BPM Standing Heart Rate Pre-Dialysis 85 BPM Standing Heart Rate Post-Dialysis 90 BPM Temperature Pre-Dialysis 98.6 degF May 16, 2023 Additional Day Of Dialysis Treatment 8365-03-56P94:03:00.000Z 1785-77-30W58:53:53.000Z BP Sitting (Pre-Dialysis) 143/106 mmHg BP Sitting (Post-Dialysis) 173/110 mmHg Concurrent Access: falseCentral Venous Catheter (CVC) Subclavian (Right) ArterialAV Fistula Forearm (Left) Venous BP Standing (Pre-Dialysis) 160/114 mmHg BP Standing (P ost-Dialysis) 109/84 mmHg Sitting Heart Rate Pre-Dialysis 97 BPM Sitting Heart Rate Post-Dialysis 80 BPM Standing Heart Rate Pre-Dialysis 80 BPM Standing Heart Rate Post-Dialysis 100 BPM Temperature Pre-Dialysis 98 degF Temperature Post -Dialysis 97.5 degF May 12, 2023 In-Center Hemodialysis Treatment [id number]:32:00.000Z 5868-48-42I72:02:37.000Z BP Sitting (Pre-Dialysis) 161/102 mmHg BP Sitting (Post-Dialysis) 115/83 mmHg Concurrent Access: falseCentral Venous Catheter (CVC) Subclavian (Right) ArterialAV Fistula Forearm (Left) Venous Sitting Heart Rate Pre-Dialysis 94 BPM BP Standi ng (Post-Dialysis) 127/89 mmHg Temperature Pre-Dialysis 98 degF Sitting Heart Ra te Post-Dialysis 88 BPM Standing Heart Rate Post-Nusrat lysis 90 BPM Temperature Post-Dialysis 97 .6 degF May 10, 2023 In-Center Hemodialysis Treatment [id number]:40:00.000Z [id number]:23:39.000Z BP Sitting (Pre-Dialysis) 164/104 mmHg BP Sitting (Post-Dialysis) 154/99 mmHg Concurrent Access: falseCentral Venous Catheter (CVC) Subclavian (Right) ArterialAV Fistula Forearm (Left) Venous BP Standing (Pre-Dialysis) 168/110 mmHg BP Standing (P ost-Dialysis) 124/92 mmHg Sitting Heart Rate Pre-Dialysis 80 BPM Sitting Heart Rate Post-Dialysis 96 BPM Standing Heart Rate Pre-Dialysis 80 BPM Standing Heart Rate Post-Dialysis 96 BPM Temperature Pre-Dialysis 98.6 degF Temperature Post -Dialysis 97.6 degF May 07, 2023 In-Center Hemodialysis Treatment 1500-27-43C94:33:00.000Z 9513-60-79A15:01:27.000Z BP Sitting (Pre-Dialysis) 169/105 mmHg BP Sitting (Post-Dialysis) 150/99 mmHg Concurrent Access: falseCentral Venous Catheter (CVC) Subclavian (Right) ArterialAV Fistula Forearm (Left) Venous BP Standing (Pre-Dialysis) 160/101 mmHg BP Standing (P ost-Dialysis) 145/78 mmHg Sitting Heart Rate Pre-Dialysis 80 BPM Sitting Heart Rate Post-Dialysis 82 BPM Standing Heart Rate Pre-Dialysis 82 BPM Standing Heart Rate Post-Dialysis 112 BPM Temperature Pre-Dialysis 97.8 degF Temperature Post -Dialysis 99 degF May 05, 2023 In-Center Hemodialysis Treatment [id number]:34:00.000Z [id number]:10:07.000Z BP Sitting (Pre-Dialysis) 170/101 mmHg BP Sitting (Post-Dialysis) 141/90 mmHg Concurrent Access: falseCentral Venous Catheter (CVC) Subclavian (Right) ArterialAV Fistula Forearm (Left) Venous BP Standing (Pre-Dialysis) 163/105 mmHg BP Standing (P ost-Dialysis) 107/86 mmHg Sitting Heart Rate Pre-Dialysis 100 BPM Sitting Heart Rate Post-Dialysis 80 BPM Standing Heart Rate Pre-Dialysis 103 BPM Standing Heart Rate Post-Dialysis 80 BPM Temperature Pre-Dialysis 97.6 degF Temperature Post -Dialysis 98 degF May 03, 2023 In-Center Hemodialysis Treatment [id number]:11:00.000Z 8076-70-74R26:59:56.000Z BP Sitting (Pre-Dialysis) 142/93 mmHg BP Sitting (Post-Dialysis) 148/97 mmHg Concurrent Access: falseCentral Venous Catheter (CVC) Subclavian (Right) ArterialAV Fistula Forearm (Left) Venous BP Standing (Pre-Dialysis) 142/93 mmHg BP Standing (P ost-Dialysis) 140/85 mmHg Sitting Heart Rate Pre-Dialysis 89 BPM Sitting Heart Rate Post-Dialysis 89 BPM Standing Heart Rate Pre-Dialysis 89 BPM Standing Heart Rate Post-Dialysis 113 BPM Temperature Pre-Dialysis 97.3 degF Temperature Post -Dialysis 97.6 degF April 30, 2023 In-Center Hemodialysis Treatment [id number]:24:00.000Z [id number]:55:44.000Z BP Sitting (Pre-Dialysis) 130/90 mmHg BP Sitting (Post-Dialysis) 133/80 mmHg Concurrent Access: falseCentral Venous Catheter (CVC) Subclavian (Right) ArterialAV Fistula Forearm (Left) Venous BP Standing (Pre-Dialysis) 180/85 mmHg BP Standing (P ost-Dialysis) 150/52 mmHg Sitting Heart Rate Pre-Dialysis 80 BPM Sitting Heart Rate Post-Dialysis 80 BPM Standing Heart Rate Pre-Dialysis 107 BPM Standing Heart Rate Post-Dialysis 107 BPM Temperature Pre-Dialysis 97.3 degF Temperature Post -Dialysis 97.6 degF April 28, 2023 In-Center Hemodialysis Treatment [id number]:23:00.000Z [id number]:57:02.000Z BP Sitting (Pre-Dialysis) 154/93 mmHg BP Sitting (Post-Dialysis) 110/86 mmHg Concurrent Access: falseCentral Venous Catheter (CVC) Subclavian (Right) ArterialAV Fistula Forearm (Left) Venous BP Standing (Pre-Dialysis) 151/93 mmHg BP Standing (P ost-Dialysis) 100/57 mmHg Sitting Heart Rate Pre-Dialysis 91 BPM Sitting Heart Rate Post-Dialysis 105 BPM Standing Heart Rate Pre-Dialysis 94 BPM Standing Heart Rate Post-Dialysis 101 BPM Temperature Pre-Dialysis 97.6 degF Temperature Post -Dialysis 98 degF April 26, 2023 In-Center Hemodialysis Treatment [id number]:30:00.000Z 0546-05-72Z15:15:49.000Z BP Sitting (Pre-Dialysis) 175/129 mmHg BP Sitting (Post-Dialysis) 170/80 mmHg Concurrent Access: falseCentral Venous Catheter (CVC) Subclavian (Right) ArterialAV Fistula Forearm (Left) Venous BP Standing (Pre-Dialysis) 169/117 mmHg BP Standing (P ost-Dialysis) 162/92 mmHg Sitting Heart Rate Pre-Dialysis 85 BPM Sitting Heart Rate Post-Dialysis 90 BPM Standing Heart Rate Pre-Dialysis 83 BPM Standing Heart Rate Post-Dialysis 98 BPM Temperature Pre-Dialysis 97.6 degF Temperature Post -Dialysis 97.6 degF April 23, 2023 In-Center Hemodialysis Treatment [id number]:21:00.000Z 2340-59-09Y47:58:09.000Z BP Sitting (Pre-Dialysis) 165/104 mmHg BP Sitting (Post-Dialysis) 119/77 mmHg Concurrent Access: falseCentral Venous Catheter (CVC) Subclavian (Right) ArterialAV Fistula Forearm (Left) Venous BP Standing (Pre-Dialysis) 163/97 mmHg Sitti ng Heart Rate Post-Dialysis 94 BPM Sitting Heart Rate Pre-Dialysis 85 BPM Temperatu re Post-Dialysis 97.3 degF Standing Heart Rate Pre-Dialysis 93 BPM Temperature Pre-Dialysis 97.6 degF April 21, 2023 In-Center Hemodialysis Treatment [id number]:21:00.000Z [id number]:06:13.000Z BP Sitting (Pre-Dialysis) 160/113 mmHg BP Sitting (Post-Dialysis) 142/92 mmHg Concurrent Access: falseCentral Venous Catheter (CVC) Subclavian (Right) ArterialAV Fistula Forearm (Left) Venous BP Standing (Pre-Dialysis) 162/104 mmHg Sitti ng Heart Rate Post-Dialysis 93 BPM Sitting Heart Rate Pre-Dialysis 68 BPM Temperatu re Post-Dialysis 97.2 degF Standing Heart Rate Pre-Dialysis 66 BPM Temperature Pre-Dialysis 97.3 degF April 19, 2023 In-Center Hemodialysis Treatment [id number]:45:00.000Z 3143-08-18G71:32:31.000Z BP Sitting (Pre-Dialysis) 158/90 mmHg BP Sitting (Post-Dialysis) 162/89 mmHg Concurrent Access: falseCentral Venous Catheter (CVC) Subclavian (Right) ArterialAV Fistula Forearm (Left) Venous BP Standing (Pre-Dialysis) 139/95 mmHg BP Standing (P ost-Dialysis) 126/86 mmHg Sitting Heart Rate Pre-Dialysis 67 BPM Sitting Heart Rate Post-Dialysis 90 BPM Standing Heart Rate Pre-Dialysis 67 BPM Standing Heart Rate Post-Dialysis 106 BPM Temperature Pre-Dialysis 97.3 degF Temperature Post -Dialysis 97.3 degF April 16, 2023 In-Center Hemodialysis Treatment 0874-09-23G26:34:00.000Z 8521-56-04N94:14:11.000Z BP Sitting (Pre-Dialysis) 163/97 mmHg BP Sitting (Post-Dialysis) 143/94 mmHg Concurrent Access: falseCentral Venous Catheter (CVC) Subclavian (Right) ArterialAV Fistula Forearm (Left) Venous BP Standing (Pre-Dialysis) 153/97 mmHg BP Standing (P ost-Dialysis) 121/64 mmHg Sitting Heart Rate Pre-Dialysis 94 BPM Sitting Heart Rate Post-Dialysis 98 BPM Standing Heart Rate Pre-Dialysis 117 BPM Standing Heart Rate Post-Dialysis 120 BPM Temperature Pre-Dialysis 97.3 degF Temperature Post -Dialysis 97.5 degF April 14, 2023 In-Center Hemodialysis Treatment 5769-79-87X07:39:00.000Z 8501-14-20P53:17:26.000Z BP Sitting (Pre-Dialysis) 149/98 mmHg BP Sitting (Post-Dialysis) 146/86 mmHg Concurrent Access: falseCentral Venous Catheter (CVC) Subclavian (Right) ArterialAV Fistula Forearm (Left) Venous BP Standing (Pre-Dialysis) 137/85 mmHg BP Standing (P ost-Dialysis) 138/88 mmHg Sitting Heart Rate Pre-Dialysis 80 BPM Sitting Heart Rate Post-Dialysis 96 BPM Standing Heart Rate Pre-Dialysis 92 BPM Standing Heart Rate Post-Dialysis 113 BPM Temperature Pre-Dialysis 97.5 degF Temperature Post -Dialysis 97 degF April 12, 2023 In-Center Hemodialysis Treatment [id number]:38:00.000Z [id number]:21:48.000Z BP Sitting (Pre-Dialysis) 146/89 mmHg BP Sitting (Post-Dialysis) 146/90 mmHg Concurrent Access: falseCentral Venous Catheter (CVC) Subclavian (Right) ArterialAV Fistula Forearm (Left) Venous BP Standing (Pre-Dialysis) 155/90 mmHg Sitti ng Heart Rate Post-Dialysis 108 BPM Sitting Heart Rate Pre-Dialysis 73 BPM Temperatu re Post-Dialysis 97.3 degF Standing Heart Rate Pre-Dialysis 72 BPM Temperature Pre-Dialysis 97.5 degF April 09, 2023 In-Center Hemodialysis Treatment [id number]:38:00.000Z 4622-14-60O67:08:27.000Z BP Sitting (Pre-Dialysis) 129/73 mmHg BP Sitting (Post-Dialysis) 132/95 mmHg Concurrent Access: falseCentral Venous Catheter (CVC) Subclavian (Right) ArterialAV Fistula Forearm (Left) Venous BP Standing (Pre-Dialysis) 165/105 mmHg BP Standing (P ost-Dialysis) 106/65 mmHg Sitting Heart Rate Pre-Dialysis 73 BPM Sitting Heart Rate Post-Dialysis 102 BPM Standing Heart Rate Pre-Dialysis 80 BPM Standing Heart Rate Post-Dialysis 107 BPM Temperature Pre-Dialysis 97.4 degF Temperature Post -Dialysis 97.5 degF April 07, 2023 In-Center Hemodialysis Treatment [id number]:13:00.000Z [id number]:44:15.000Z BP Sitting (Pre-Dialysis) 154/89 mmHg BP Sitting (Post-Dialysis) 152/90 mmHg Concurrent Access: falseCentral Venous Catheter (CVC) Subclavian (Right) ArterialAV Fistula Forearm (Left) Venous BP Standing (Pre-Dialysis) 144/88 mmHg BP Standing (P ost-Dialysis) 117/76 mmHg Sitting Heart Rate Pre-Dialysis 74 BPM Sitting Heart Rate Post-Dialysis 92 BPM Standing Heart Rate Pre-Dialysis 80 BPM Standing Heart Rate Post-Dialysis 109 BPM Temperature Pre-Dialysis 98.1 degF Temperature Post -Dialysis 97.2 degF April 05, 2023 In-Center Hemodialysis Treatment [id number]:11:00.000Z [id number]:51:27.000Z BP Sitting (Pre-Dialysis) 154/96 mmHg BP Sitting (Post-Dialysis) 143/84 mmHg Concurrent Access: falseCentral Venous Catheter (CVC) Subclavian (Right) ArterialAV Fistula Forearm (Left) Venous BP Standing (Pre-Dialysis) 150/83 mmHg Sitti ng Heart Rate Post-Dialysis 80 BPM Sitting Heart Rate Pre-Dialysis 66 BPM Temperatu re Post-Dialysis 97.3 degF Standing Heart Rate Pre-Dialysis 92 BPM Temperature Pre-Dialysis 98 degF April 02, 2023 In-Center Hemodialysis Treatment [id number]:38:00.000Z [id number]:17:14.000Z BP Sitting (Pre-Dialysis) 126/61 mmHg BP Sitting (Post-Dialysis) 126/82 mmHg Concurrent Access: falseCentral Venous Catheter (CVC) Subclavian (Right) ArterialAV Fistula Forearm (Left) Venous BP Standing (Pre-Dialysis) 142/95 mmHg BP Standing (P ost-Dialysis) 101/54 mmHg Sitting Heart Rate Pre-Dialysis 60 BPM Sitting Heart Rate Post-Dialysis 80 BPM Standing Heart Rate Pre-Dialysis 82 BPM Standing Heart Rate Post-Dialysis 85 BPM Temperature Pre-Dialysis 97.3 degF Temperature Post -Dialysis 97.2 degF March 30, 2023 In-Center Hemodialysis Treatment [id number]:13:00.000Z 3717-34-59Q25:50:22.000Z BP Sitting (Pre-Dialysis) 145/86 mmHg BP Sitting (Post-Dialysis) 125/66 mmHg Concurrent Access: falseCentral Venous Catheter (CVC) Subclavian (Right) Arterial BP Standing (Pre-Dialysis) 159/87 mmHg Sitti ng Heart Rate Post-Dialysis 74 BPM Sitting Heart Rate Pre-Dialysis 77 BPM Temperatu re Post-Dialysis 97.9 degF Standing Heart Rate Pre-Dialysis 82 BPM Temperature Pre-Dialysis 97.3 degF March 29, 2023 In-Center Hemodialysis Treatment [id number]:39:00.000Z 5297-25-56D24:11:38.000Z BP Sitting (Pre-Dialysis) 149/95 mmHg BP Sitting (Post-Dialysis) 129/89 mmHg Concurrent Access: falseCentral Venous Catheter (CVC) Subclavian (Right) Arterial BP Standing (Pre-Dialysis) 146/99 mmHg Sitting Heart Rate Post-Dialysis 80 BPM Sitting Heart Rate Pre-Dialysis 103 BPM Temperatu re Post-Dialysis 98 degF Standing Heart Rate Pre-Dialysis 112 BPM Temperature Pre-Dialysis 97.3 degF March 26, 2023 In-Center Hemodialysis Treatment 0036-06-41C22:19:00.000Z 3328-32-79N70:25:47.000Z BP Sitting (Pre-Dialysis) 161/101 mmHg BP Sitting (Post-Dialysis) 112/66 mmHg Concurrent Access: falseCentral Venous Catheter (CVC) Subclavian (Right) Arterial BP Standing (Pre-Dialysis) 152/106 mmHg BP Standing (P ost-Dialysis) 101/63 mmHg Sitting Heart Rate Pre-Dialysis 88 BPM Sitting Heart Rate Post-Dialysis 88 BPM Standing Heart Rate Pre-Dialysis 100 BPM Standing Heart Rate Post-Dialysis 98 BPM Temperature Pre-Dialysis 98 degF Temperature Post -Dialysis 97.8 degF March 24, 2023 In-Center Hemodialysis Treatment [id number]:50:00.000Z 3541-15-14D90:34:07.000Z BP Sitting (Pre-Dialysis) 172/92 mmHg BP Sitting (Post-Dialysis) 114/86 mmHg Concurrent Access: falseCentral Venous Catheter (CVC) Subclavian (Right) Arterial BP Standing (Pre-Dialysis) 169/64 mmHg BP Standing (P ost-Dialysis) 112/90 mmHg Sitting Heart Rate Pre-Dialysis 95 BPM Sitting Heart Rate Post-Dialysis 96 BPM Standing Heart Rate Pre-Dialysis 107 BPM Standing Heart Rate Post-Dialysis 93 BPM Temperature Pre-Dialysis 98 degF Temperature Post -Dialysis 97.4 degF March 22, 2023 In-Center Hemodialysis Treatment [id number]:30:00.000Z 4404-56-46P15:32:11.000Z BP Sitting (Pre-Dialysis) 161/107 mmHg BP Sitting (Post-Dialysis) 125/77 mmHg Concurrent Access: falseCentral Venous Catheter (CVC) Subclavian (Right) Arterial BP Standing (Pre-Dialysis) 160/83 mmHg BP Standing (P ost-Dialysis) 119/57 mmHg Sitting Heart Rate Pre-Dialysis 65 BPM Sitting Heart Rate Post-Dialysis 80 BPM Standing Heart Rate Pre-Dialysis 82 BPM Standing Heart Rate Post-Dialysis 74 BPM Temperature Pre-Dialysis 97.3 degF Temperature Post -Dialysis 98.5 degF March 19, 2023 In-Center Hemodialysis Treatment 0904-31-79O26:56:00.000Z 2446-86-23M98:06:57.000Z BP Sitting (Pre-Dialysis) 118/82 mmHg BP Sitting (Post-Dialysis) 140/97 mmHg Concurrent Access: falseCentral Venous Catheter (CVC) Subclavian (Right) Arterial Sitting Heart Rate Pre-Dialysis 100 BPM BP Standing (Post-Dialysis) 168/61 mmHg Temperature Pre-Dialysis 97.2 degF Sitting Heart Ra te Post-Dialysis 101 BPM Standing Heart Rate Post-Nusrat lysis 117 BPM Temperature Post-Dialysis 98 .4 degF March 17, 2023 In-Center Hemodialysis Treatment [id number]:12:00.000Z 9525-12-10V16:33:37.000Z BP Sitting (Pre-Dialysis) 127/97 mmHg BP Sitting (Post-Dialysis) 128/75 mmHg Concurrent Access: falseCentral Venous Catheter (CVC) Subclavian (Right) Arterial BP Standing (Pre-Dialysis) 119/86 mmHg BP Standing (P ost-Dialysis) 110/88 mmHg Sitting Heart Rate Pre-Dialysis 85 BPM Sitting Heart Rate Post-Dialysis 101 BPM Standing Heart Rate Pre-Dialysis 60 BPM Standing Heart Rate Post-Dialysis 93 BPM Temperature Pre-Dialysis 97.2 degF Temperature Post -Dialysis 98.5 degF March 15, 2023 In-Center Hemodialysis Treatment [id number]:33:00.000Z 2283-47-09L09:08:31.000Z BP Sitting (Pre-Dialysis) 153/90 mmHg BP Sitting (Post-Dialysis) 137/87 mmHg Concurrent Access: falseCentral Venous Catheter (CVC) Subclavian (Right) Arterial BP Standing (Pre-Dialysis) 112/91 mmHg Sitti ng Heart Rate Post-Dialysis 80 BPM Sitting Heart Rate Pre-Dialysis 81 BPM Temperatu re Post-Dialysis 98.3 degF Standing Heart Rate Pre-Dialysis 103 BPM Temperature Pre-Dialysis 97.3 degF March 12, 2023 In-Center Hemodialysis Treatment [id number]:49:00.000Z 7467-64-81F94:20:11.000Z BP Sitting (Pre-Dialysis) 113/114 mmHg BP Sitting (Post-Dialysis) 129/97 mmHg Concurrent Access: falseCentral Venous Catheter (CVC) Subclavian (Right) Arterial BP Standing (Pre-Dialysis) 119/92 mmHg BP Standing (P ost-Dialysis) 124/67 mmHg Sitting Heart Rate Pre-Dialysis 97 BPM Sitting Heart Rate Post-Dialysis 99 BPM Standing Heart Rate Pre-Dialysis 82 BPM Standing Heart Rate Post-Dialysis 120 BPM Temperature Pre-Dialysis 97 degF Temperature Post -Dialysis 97.7 degF March 10, 2023 In-Center Hemodialysis Treatment 0814-41-91T12:59:00.000Z 4965-53-82F02:24:05.000Z BP Sitting (Pre-Dialysis) 145/76 mmHg BP Sitting (Post-Dialysis) 133/92 mmHg Concurrent Access: falseCentral Venous Catheter (CVC) Subclavian (Right) Arterial BP Standing (Pre-Dialysis) 165/91 mmHg BP Standing (P ost-Dialysis) 106/85 mmHg Sitting Heart Rate Pre-Dialysis 108 BPM Sitting Heart Rate Post-Dialysis 101 BPM Standing Heart Rate Pre-Dialysis 97 BPM Standing Heart Rate Post-Dialysis 105 BPM Temperature Pre-Dialysis 97.3 degF Temperature Post -Dialysis 97.6 degF March 09, 2023 Sequential Treatment [id number]:12:00.000Z 6232-84-02U83:36:08.000Z BP Sitting (Pre-Dialysis) 169/96 mmHg BP Sitting (Post-Dialysis) 165/86 mmHg Concurrent Access: falseCentral Venous Catheter (CVC) Subclavian (Right) Arterial BP Standing (Pre-Dialysis) 178/123 mmHg BP Standing (P ost-Dialysis) 166/99 mmHg Sitting Heart Rate Pre-Dialysis 101 BPM Sitting Heart Rate Post-Dialysis 102 BPM Standing Heart Rate Pre-Dialysis 101 BPM Standing Heart Rate Post-Dialysis 105 BPM Temperature Pre-Dialysis 98.1 degF Temperature Post -Dialysis 98.3 degF March 08, 2023 In-Center Hemodialysis Treatment [id number]:20:00.000Z [id number]:42:55.000Z BP Sitting (Pre-Dialysis) 131/104 mmHg BP Sitting (Post-Dialysis) 133/88 mmHg Concurrent Access: falseCentral Venous Catheter (CVC) Subclavian (Right) Arterial BP Standing (Pre-Dialysis) 153/103 mmHg Sitti ng Heart Rate Post-Dialysis 104 BPM Sitting Heart Rate Pre-Dialysis 96 BPM Temperatu re Post-Dialysis 98 degF Standing Heart Rate Pre-Dialysis 93 BPM Temperature Pre-Dialysis 98.1 degF March 05, 2023 In-Center Hemodialysis Treatment 1831-07-39U34:10:00.000Z 0543-22-02U93:42:48.000Z BP Sitting (Pre-Dialysis) 135/87 mmHg BP Sitting (Post-Dialysis) 135/72 mmHg Concurrent Access: falseCentral Venous Catheter (CVC) Subclavian (Right) Arterial BP Standing (Pre-Dialysis) 158/97 mmHg Sitti ng Heart Rate Post-Dialysis 80 BPM Sitting Heart Rate Pre-Dialysis 80 BPM Temperatu re Post-Dialysis 97.2 degF Standing Heart Rate Pre-Dialysis 91 BPM Temperature Pre-Dialysis 97.9 degF March 02, 2023 In-Center Hemodialysis Treatment [id number]:50:27.000Z 2053-06-09X28:23:10.000Z BP Sitting (Pre-Dialysis) 163/93 mmHg BP Sitting (Post-Dialysis) 125/87 mmHg Concurrent Access: falseCentral Venous Catheter (CVC) Subclavian (Right) Arterial BP Standing (Pre-Dialysis) 172/94 mmHg BP Standing (P ost-Dialysis) 128/83 mmHg Sitting Heart Rate Pre-Dialysis 96 BPM Sitting Heart Rate Post-Dialysis 84 BPM Standing Heart Rate Pre-Dialysis 103 BPM Standing Heart Rate Post-Dialysis 79 BPM Temperature Pre-Dialysis 97.3 degF Temperature Post -Dialysis 97.2 degF February 28, 2023 In-Center Hemodialysis Treatment [id number]:44:00.000Z 7717-93-29W96:23:15.000Z BP Sitting (Pre-Dialysis) 152/97 mmHg BP Sitting (Post-Dialysis) 124/94 mmHg Concurrent Access: falseCentral Venous Catheter (CVC) Subclavian (Right) Arterial BP Standing (Pre-Dialysis) 105/83 mmHg Sitti ng Heart Rate Post-Dialysis 96 BPM Sitting Heart Rate Pre-Dialysis 80 BPM Temperatu re Post-Dialysis 97.3 degF Standing Heart Rate Pre-Dialysis 68 BPM Temperature Pre-Dialysis 97.3 degF February 26, 2023 In-Center Hemodialysis Treatment [id number]:29:00.000Z 0509-15-02R21:08:18.000Z BP Sitting (Pre-Dialysis) 134/99 mmHg BP Sitting (Post-Dialysis) 118/78 mmHg Concurrent Access: falseCentral Venous Catheter (CVC) Subclavian (Right) Arterial BP Standing (Pre-Dialysis) 143/91 mmHg BP Standing (P ost-Dialysis) 109/83 mmHg Sitting Heart Rate Pre-Dialysis 80 BPM Sitting Heart Rate Post-Dialysis 107 BPM Standing Heart Rate Pre-Dialysis 80 BPM Standing Heart Rate Post-Dialysis 102 BPM Temperature Pre-Dialysis 97.3 degF Temperature Post -Dialysis 97.3 degF February 24, 2023 In-Center Hemodialysis Treatment 3612-04-49C74:15:00.000Z 7313-51-77C30:57:12.000Z BP Sitting (Pre-Dialysis) 147/72 mmHg BP Sitting (Post-Dialysis) 139/96 mmHg Concurrent Access: falseCentral Venous Catheter (CVC) Subclavian (Right) Arterial BP Standing (Pre-Dialysis) 158/107 mmHg BP Standing (P ost-Dialysis) 103/73 mmHg Sitting Heart Rate Pre-Dialysis 85 BPM Sitting Heart Rate Post-Dialysis 81 BPM Standing Heart Rate Pre-Dialysis 85 BPM Standing Heart Rate Post-Dialysis 89 BPM Temperature Pre-Dialysis 97.9 degF Temperature Post -Dialysis 97.3 degF February 22, 2023 In-Center Hemodialysis Treatment [id number]:55:00.000Z 9924-58-32K97:32:10.000Z BP Sitting (Pre-Dialysis) 151/109 mmHg BP Sitting (Post-Dialysis) 117/54 mmHg Concurrent Access: falseCentral Venous Catheter (CVC) Subclavian (Right) Arterial BP Standing (Pre-Dialysis) 156/99 mmHg BP Standing (P ost-Dialysis) 101/78 mmHg Sitting Heart Rate Pre-Dialysis 70 BPM Sitting Heart Rate Post-Dialysis 86 BPM Standing Heart Rate Pre-Dialysis 61 BPM Standing Heart Rate Post-Dialysis 100 BPM Temperature Pre-Dialysis 97.9 degF Temperature Post -Dialysis 97.3 degF February 19, 2023 In-Center Hemodialysis Treatment 1154-77-17Z42:17:00.000Z [id number]:51:15.000Z BP Sitting (Pre-Dialysis) 162/113 mmHg BP Sitting (Post-Dialysis) 144/93 mmHg Concurrent Access: falseCentral Venous Catheter (CVC) Subclavian (Right) Arterial BP Standing (Pre-Dialysis) 172/114 mmHg BP Standing (P ost-Dialysis) 110/74 mmHg Sitting Heart Rate Pre-Dialysis 74 BPM Sitting Heart Rate Post-Dialysis 80 BPM Standing Heart Rate Pre-Dialysis 73 BPM Standing Heart Rate Post-Dialysis 105 BPM Temperature Pre-Dialysis 97.5 degF Temperature Post -Dialysis 98 degF February 17, 2023 In-Center Hemodialysis Treatment 0444-10-31T51:18:00.000Z 8810-33-30T09:01:23.000Z BP Sitting (Pre-Dialysis) 172/113 mmHg BP Sitting (Post-Dialysis) 126/74 mmHg Concurrent Access: falseCentral Venous Catheter (CVC) Chest (Right) Arterial BP Standing (Pre-Dialysis) 177/119 mmHg Sitti ng Heart Rate Post-Dialysis 80 BPM Sitting Heart Rate Pre-Dialysis 80 BPM Temperatu re Post-Dialysis 97 degF Standing Heart Rate Pre-Dialysis 85 BPM Temperature Pre-Dialysis 98 degF February 15, 2023 In-Center Hemodialysis Treatment [id number]:31:00.000Z [id number]:16:49.000Z BP Sitting (Pre-Dialysis) 185/125 mmHg BP Sitting (Post-Dialysis) 147/86 mmHg Concurrent Access: falseCentral Venous Catheter (CVC) Chest (Right) Arterial BP Standing (Pre-Dialysis) 113/69 mmHg BP Standing (P ost-Dialysis) 143/77 mmHg Sitting Heart Rate Pre-Dialysis 80 BPM Sitting Heart Rate Post-Dialysis 86 BPM Standing Heart Rate Pre-Dialysis 52 BPM Standing Heart Rate Post-Dialysis 103 BPM Temperature Pre-Dialysis 98 degF Temperature Post -Dialysis 97.2 degF February 12, 2023 In-Center Hemodialysis Treatment [id number]:11:00.000Z 3371-39-73Y38:29:20.000Z BP Sitting (Pre-Dialysis) 177/119 mmHg BP Sitting (Post-Dialysis) 162/99 mmHg Concurrent Access: falseCentral Venous Catheter (CVC) Chest (Right) Arterial Sitting Heart Rate Pre-Dialysis 65 BPM BP Standing (Post-Dialysis) 169/98 mmHg Temperature Pre-Dialysis 97.5 degF Sitting Heart Ra te Post-Dialysis 72 BPM Standing Heart Rate Post-Nusrat lysis 80 BPM Temperature Post-Dialysis 97 .1 degF February 10, 2023 In-Center Hemodialysis Treatment [id number]:22:00.000Z [id number]:02:41.000Z BP Sitting (Pre-Dialysis) 180/119 mmHg BP Sitting (Post-Dialysis) 156/91 mmHg Concurrent Access: falseCentral Venous Catheter (CVC) Chest (Right) Arterial BP Standing (Pre-Dialysis) 113/78 mmHg BP Standing (P ost-Dialysis) 147/91 mmHg Sitting Heart Rate Pre-Dialysis 80 BPM Sitting Heart Rate Post-Dialysis 67 BPM Standing Heart Rate Pre-Dialysis 82 BPM Standing Heart Rate Post-Dialysis 82 BPM Temperature Pre-Dialysis 97 degF Temperature Post -Dialysis 97.9 degF February 08, 2023 In-Center Hemodialysis Treatment [id number]:11:00.000Z [id number]:53:47.000Z BP Sitting (Pre-Dialysis) 108/92 mmHg BP Sitting (Post-Dialysis) 164/81 mmHg Concurrent Access: falseCentral Venous Catheter (CVC) Chest (Right) Arterial Sitting Heart Rate Pre-Dialysis 94 BPM BP Standi ng (Post-Dialysis) 125/64 mmHg Temperature Pre-Dialysis 97 degF Sitting Heart Ra te Post-Dialysis 96 BPM Standing Heart Rate Post-Nusrat lysis 114 BPM Temperature Post-Dialysis 97 degF February 05, 2023 In-Center Hemodialysis Treatment [id number]:16:10.000Z [id number]:00:24.000Z BP Sitting (Pre-Dialysis) 149/102 mmHg BP Sitting (Post-Dialysis) 162/112 mmHg Concurrent Access: falseCentral Venous Catheter (CVC) Chest (Right) Arterial BP Standing (Pre-Dialysis) 170/114 mmHg BP Standing (P ost-Dialysis) 121/74 mmHg Sitting Heart Rate Pre-Dialysis 95 BPM Sitting Heart Rate Post-Dialysis 82 BPM Standing Heart Rate Pre-Dialysis 107 BPM Standing Heart Rate Post-Dialysis 80 BPM Temperature Pre-Dialysis 97.3 degF Temperature Post -Dialysis 97.4 degF February 03, 2023 In-Center Hemodialysis Treatment [id number]:08:00.000Z [id number]:52:54.000Z BP Sitting (Pre-Dialysis) 171/115 mmHg BP Sitting (Post-Dialysis) 147/98 mmHg Concurrent Access: falseCentral Venous Catheter (CVC) Chest (Right) Arterial BP Standing (Pre-Dialysis) 164/114 mmHg BP Standing (P ost-Dialysis) 169/98 mmHg Sitting Heart Rate Pre-Dialysis 73 BPM Sitting Heart Rate Post-Dialysis 75 BPM Standing Heart Rate Pre-Dialysis 80 BPM Standing Heart Rate Post-Dialysis 80 BPM Temperature Pre-Dialysis 98 degF Temperature Post -Dialysis 97.1 degF February 01, 2023 In-Center Hemodialysis Treatment [id number]:06:00.000Z [id number]:52:26.000Z BP Sitting (Pre-Dialysis) 187/123 mmHg BP Sitting (Post-Dialysis) 159/101 mmHg Concurrent Access: falseCentral Venous Catheter (CVC) Chest (Right) Arterial BP Standing (Pre-Dialysis) 180/121 mmHg Sitti ng Heart Rate Post-Dialysis 74 BPM Sitting Heart Rate Pre-Dialysis 61 BPM Temperatu re Post-Dialysis 97 degF Standing Heart Rate Pre-Dialysis 73 BPM Temperature Pre-Dialysis 97 degF January 29, 2023 In-Center Hemodialysis Treatment [id number]:29:00.000Z [id number]:29:11.000Z BP Sitting (Pre-Dialysis) 180/121 mmHg BP Sitting (Post-Dialysis) 175/116 mmHg Concurrent Access: falseCentral Venous Catheter (CVC) Chest (Right) Arterial BP Standing (Pre-Dialysis) 152/116 mmHg Sitting Heart Rate Post-Dialysis 80 BPM Sitting Heart Rate Pre-Dialysis 60 BPM Standing Heart Rate Pre-Dialysis 68 BPM Temperature Pre-Dialysis 97.8 degF January 27, 2023 In-Center Hemodialysis Treatment [id number]:23:00.000Z [id number]:19:25.000Z BP Sitting (Pre-Dialysis) 120/90 mmHg BP Sitting (Post-Dialysis) 143/102 mmHg Concurrent Access: falseCentral Venous Catheter (CVC) Chest (Right) Arterial Sitting Heart Rate Pre-Dialysis 77 BPM BP Standing (Post-Dialysis) 165/99 mmHg Temperature Pre-Dialysis 97.1 degF Sitting Heart Ra te Post-Dialysis 89 BPM Standing Heart Rate Post-Nusrat lysis 79 BPM Temperature Post-Dialysis 97 .2 degF January 25, 2023 In-Center Hemodialysis Treatment [id number]:12:00.000Z [id number]:57:20.000Z BP Sitting (Pre-Dialysis) 184/124 mmHg BP Sitting (Post-Dialysis) 171/110 mmHg Concurrent Access: falseCentral Venous Catheter (CVC) Chest (Right) Arterial BP Standing (Pre-Dialysis) 166/117 mmHg BP Standing (P ost-Dialysis) 155/109 mmHg Sitting Heart Rate Pre-Dialysis 65 BPM Sitting Heart Rate Post-Dialysis 65 BPM Standing Heart Rate Pre-Dialysis 73 BPM Standing Heart Rate Post-Dialysis 65 BPM Temperature Pre-Dialysis 97.5 degF Temperature Post -Dialysis 97.3 degF January 22, 2023 In-Center Hemodialysis Treatment [id number]:01:00.000Z [id number]:43:07.000Z BP Sitting (Pre-Dialysis) 162/114 mmHg BP Sitting (Post-Dialysis) 142/93 mmHg Concurrent Access: falseCentral Venous Catheter (CVC) Chest (Right) Arterial BP Standing (Pre-Dialysis) 171/113 mmHg Sitti ng Heart Rate Post-Dialysis 80 BPM Sitting Heart Rate Pre-Dialysis 80 BPM Temperatu re Post-Dialysis 97.5 degF Standing Heart Rate Pre-Dialysis 80 BPM Temperature Pre-Dialysis 97.3 degF January 20, 2023 In-Center Hemodialysis Treatment [id number]:38:00.000Z [id number]:19:20.000Z BP Sitting (Pre-Dialysis) 114/93 mmHg BP Sitting (Post-Dialysis) 143/98 mmHg Concurrent Access: falseCentral Venous Catheter (CVC) Chest (Right) Arterial BP Standing (Pre-Dialysis) 150/100 mmHg BP Standing (P ost-Dialysis) 142/90 mmHg Sitting Heart Rate Pre-Dialysis 61 BPM Sitting Heart Rate Post-Dialysis 80 BPM Standing Heart Rate Pre-Dialysis 80 BPM Standing Heart Rate Post-Dialysis 80 BPM Temperature Pre-Dialysis 97.1 degF Temperature Post -Dialysis 97.3 degF January 18, 2023 In-Center Hemodialysis Treatment [id number]:18:00.000Z [id number]:02:03.000Z BP Sitting (Pre-Dialysis) 185/136 mmHg BP Sitting (Post-Dialysis) 149/112 mmHg Concurrent Access: falseCentral Venous Catheter (CVC) Chest (Right) Arterial BP Standing (Pre-Dialysis) 163/124 mmHg BP Standing (P ost-Dialysis) 174/110 mmHg Sitting Heart Rate Pre-Dialysis 77 BPM Sitting Heart Rate Post-Dialysis 97 BPM Standing Heart Rate Pre-Dialysis 102 BPM Standing Heart Rate Post-Dialysis 91 BPM Temperature Pre-Dialysis 97.1 degF Temperature Post -Dialysis 98 degF January 15, 2023 In-Center Hemodialysis Treatment [id number]:35:48.000Z [id number]:36:18.000Z BP Sitting (Pre-Dialysis) 195/166 mmHg BP Sitting (Post-Dialysis) 142/106 mmHg Concurrent Access: falseCentral Venous Catheter (CVC) Chest (Right) Arterial BP Standing (Pre-Dialysis) 110/64 mmHg BP Standing (P ost-Dialysis) 168/110 mmHg Sitting Heart Rate Pre-Dialysis 69 BPM Sitting Heart Rate Post-Dialysis 93 BPM Standing Heart Rate Pre-Dialysis 74 BPM Standing Heart Rate Post-Dialysis 93 BPM Temperature Pre-Dialysis 97.3 degF Temperature Post -Dialysis 97.9 degF January 13, 2023 In-Center Hemodialysis Treatment [id number]:08:00.000Z [id number]:51:59.000Z BP Sitting (Pre-Dialysis) 179/124 mmHg BP Sitting (Post-Dialysis) 151/104 mmHg Concurrent Access: falseCentral Venous Catheter (CVC) Chest (Right) Arterial BP Standing (Pre-Dialysis) 166/126 mmHg BP Standing (P ost-Dialysis) 167/111 mmHg Sitting Heart Rate Pre-Dialysis 80 BPM Sitting Heart Rate Post-Dialysis 71 BPM Standing Heart Rate Pre-Dialysis 80 BPM Standing Heart Rate Post-Dialysis 99 BPM Temperature Pre-Dialysis 97.3 degF Temperature Post -Dialysis 97.2 degF January 11, 2023 In-Center Hemodialysis Treatment [id number]:58:59.000Z [id number]:26:00.000Z BP Sitting (Pre-Dialysis) 174/122 mmHg BP Sitting (Post-Dialysis) 182/110 mmHg Concurrent Access: falseCentral Venous Catheter (CVC) Chest (Right) Arterial Sitting Heart Rate Pre-Dialysis 73 BPM BP Standing (Post-Dialysis) 164/88 mmHg Temperature Pre-Dialysis 97.2 degF Sitting Heart Ra te Post-Dialysis 80 BPM Standing Heart Rate Post-Nusrat lysis 91 BPM January 08, 2023 In-Center Hemodialysis Treatment [id number]:56:00.000Z [id number]:38:47.000Z BP Sitting (Pre-Dialysis) 148/51 mmHg BP Sitting (Post-Dialysis) 109/75 mmHg Concurrent Access: falseCentral Venous Catheter (CVC) Chest (Right) Arterial BP Standing (Pre-Dialysis) 162/112 mmHg BP Standing (P ost-Dialysis) 156/85 mmHg Sitting Heart Rate Pre-Dialysis 80 BPM Sitting Heart Rate Post-Dialysis 96 BPM Standing Heart Rate Pre-Dialysis 80 BPM Standing Heart Rate Post-Dialysis 90 BPM Temperature Pre-Dialysis 97.4 degF Temperature Post -Dialysis 97.6 degF January 06, 2023 In-Center Hemodialysis Treatment [id number]:10:31.000Z [id number]:50:11.000Z BP Sitting (Pre-Dialysis) 178/111 mmHg BP Sitting (Post-Dialysis) 166/110 mmHg Concurrent Access: falseCentral Venous Catheter (CVC) Chest (Right) Arterial BP Standing (Pre-Dialysis) 108/64 mmHg BP Standing (P ost-Dialysis) 119/84 mmHg Sitting Heart Rate Pre-Dialysis 68 BPM Sitting Heart Rate Post-Dialysis 80 BPM Standing Heart Rate Pre-Dialysis 77 BPM Standing Heart Rate Post-Dialysis 80 BPM Temperature Pre-Dialysis 97.3 degF Temperature Post -Dialysis 97.3 degF January 04, 2023 In-Center Hemodialysis Treatment [id number]:49:00.000Z [id number]:23:13.000Z BP Sitting (Pre-Dialysis) 171/115 mmHg BP Sitting (Post-Dialysis) 148/110 mmHg Concurrent Access: falseCentral Venous Catheter (CVC) Chest (Right) Arterial BP Standing (Pre-Dialysis) 170/117 mmHg Sitting Heart Rate Post-Dialysis 77 BPM Sitting Heart Rate Pre-Dialysis 73 BPM Standing Heart Rate Pre-Dialysis 73 BPM Temperature Pre-Dialysis 97 degF January 01, 2023 In-Center Hemodialysis Treatment [id number]:38:00.000Z [id number]:16:38.000Z BP Sitting (Pre-Dialysis) 169/106 mmHg BP Sitting (Post-Dialysis) 151/102 mmHg Concurrent Access: falseCentral Venous Catheter (CVC) Chest (Right) Arterial BP Standing (Pre-Dialysis) 153/103 mmHg BP Standing (P ost-Dialysis) 137/85 mmHg Sitting Heart Rate Pre-Dialysis 67 BPM Sitting Heart Rate Post-Dialysis 78 BPM Standing Heart Rate Pre-Dialysis 97 BPM Standing Heart Rate Post-Dialysis 97 BPM Temperature Pre-Dialysis 97.3 degF Temperature Post -Dialysis 97.3 degF December 30, 2022 In-Center Hemodialysis Treatment [id number]:51:01.000Z [id number]:22:21.000Z BP Sitting (Pre-Dialysis) 177/120 mmHg BP Sitting (Post-Dialysis) 154/110 mmHg Concurrent Access: falseCentral Venous Catheter (CVC) Chest (Right) Arterial BP Standing (Pre-Dialysis) 179/125 mmHg BP Standing (P ost-Dialysis) 121/99 mmHg Sitting Heart Rate Pre-Dialysis 71 BPM Sitting Heart Rate Post-Dialysis 93 BPM Standing Heart Rate Pre-Dialysis 80 BPM Standing Heart Rate Post-Dialysis 85 BPM Temperature Pre-Dialysis 97.8 degF Temperature Post -Dialysis 97.8 degF December 28, 2022 In-Center Hemodialysis Treatment [id number]:56:00.000Z [id number]:04:38.000Z BP Sitting (Pre-Dialysis) 167/111 mmHg BP Sitting (Post-Dialysis) 141/80 mmHg Concurrent Access: falseCentral Venous Catheter (CVC) Chest (Right) Arterial BP Standing (Pre-Dialysis) 173/111 mmHg BP Standing (P ost-Dialysis) 140/89 mmHg Sitting Heart Rate Pre-Dialysis 80 BPM Sitting Heart Rate Post-Dialysis 106 BPM Standing Heart Rate Pre-Dialysis 80 BPM Standing Heart Rate Post-Dialysis 89 BPM Temperature Pre-Dialysis 97.9 degF Temperature Post -Dialysis 97.8 degF December 25, 2022 In-Center Hemodialysis Treatment [id number]:09:00.000Z [id number]:47:59.000Z BP Sitting (Pre-Dialysis) 191/128 mmHg BP Sitting (Post-Dialysis) 179/94 mmHg Concurrent Access: falseCentral Venous Catheter (CVC) Chest (Right) Arterial BP Standing (Pre-Dialysis) 174/117 mmHg BP Standing (P ost-Dialysis) 113/91 mmHg Sitting Heart Rate Pre-Dialysis 80 BPM Sitting Heart Rate Post-Dialysis 85 BPM Standing Heart Rate Pre-Dialysis 85 BPM Standing Heart Rate Post-Dialysis 85 BPM Temperature Pre-Dialysis 97.5 degF Temperature Post -Dialysis 97.6 degF December 23, 2022 In-Center Hemodialysis Treatment [id number]:38:00.000Z [id number]:41:39.000Z BP Sitting (Pre-Dialysis) 166/116 mmHg BP Sitting (Post-Dialysis) 150/98 mmHg Concurrent Access: falseCentral Venous Catheter (CVC) Chest (Right) Arterial BP Standing (Pre-Dialysis) 142/106 mmHg Sitting Heart Rate Post-Dialysis 90 BPM Sitting Heart Rate Pre-Dialysis 69 BPM Standing Heart Rate Pre-Dialysis 82 BPM Temperature Pre-Dialysis 97.3 degF December 21, 2022 In-Center Hemodialysis Treatment [id number]:27:00.000Z [id number]:05:43.000Z BP Sitting (Pre-Dialysis) 194/134 mmHg BP Sitting (Post-Dialysis) 130/104 mmHg Concurrent Access: falseCentral Venous Catheter (CVC) Chest (Right) Arterial BP Standing (Pre-Dialysis) 177/124 mmHg Sitti ng Heart Rate Post-Dialysis 92 BPM Sitting Heart Rate Pre-Dialysis 66 BPM Temperatu re Post-Dialysis 97.8 degF Standing Heart Rate Pre-Dialysis 69 BPM Temperature Pre-Dialysis 97.5 degF December 18, 2022 In-Center Hemodialysis Treatment [id number]:42:00.000Z [id number]:42:00.000Z BP Sitting (Pre-Dialysis) 156/112 mmHg BP Sitting (Post-Dialysis) 149/97 mmHg Concurrent Access: falseCentral Venous Catheter (CVC) Chest (Right) Arterial BP Standing (Pre-Dialysis) 148/102 mmHg BP Standing (P ost-Dialysis) 164/89 mmHg Sitting Heart Rate Pre-Dialysis 80 BPM Sitting Heart Rate Post-Dialysis 100 BPM Standing Heart Rate Pre-Dialysis 80 BPM Standing Heart Rate Post-Dialysis 90 BPM Temperature Pre-Dialysis 97.6 degF Temperature Post -Dialysis 97.9 degF December 16, 2022 In-Center Hemodialysis Treatment [id number]:39:23.000Z [id number]:04:03.000Z BP Sitting (Pre-Dialysis) 169/115 mmHg BP Sitting (Post-Dialysis) 129/77 mmHg Concurrent Access: falseCentral Venous Catheter (CVC) Chest (Right) Arterial BP Standing (Pre-Dialysis) 159/110 mmHg BP Standing (P ost-Dialysis) 122/73 mmHg Sitting Heart Rate Pre-Dialysis 82 BPM Sitting Heart Rate Post-Dialysis 108 BPM Standing Heart Rate Pre-Dialysis 96 BPM Standing Heart Rate Post-Dialysis 109 BPM Temperature Pre-Dialysis 97.3 degF Temperature Post -Dialysis 97.8 degF December 14, 2022 In-Center Hemodialysis Treatment [id number]:39:00.000Z [id number]:07:00.000Z BP Sitting (Pre-Dialysis) 174/116 mmHg BP Sitting (Post-Dialysis) 168/177 mmHg Concurrent Access: falseCentral Venous Catheter (CVC) Chest (Right) Arterial BP Standing (Pre-Dialysis) 169/110 mmHg BP Standing (P ost-Dialysis) 133/107 mmHg Sitting Heart Rate Pre-Dialysis 69 BPM Sitting Heart Rate Post-Dialysis 80 BPM Standing Heart Rate Pre-Dialysis 85 BPM Standing Heart Rate Post-Dialysis 103 BPM Temperature Pre-Dialysis 97.5 degF Temperature Post -Dialysis 97.8 degF December 11, 2022 In-Center Hemodialysis Treatment [id number]:39:00.000Z [id number]:11:48.000Z BP Sitting (Pre-Dialysis) 134/76 mmHg BP Sitting (Post-Dialysis) 151/93 mmHg Concurrent Access: falseCentral Venous Catheter (CVC) Chest (Right) Arterial BP Standing (Pre-Dialysis) 159/87 mmHg BP Standing (P ost-Dialysis) 105/82 mmHg Sitting Heart Rate Pre-Dialysis 128 BPM Sitting Heart Rate Post-Dialysis 80 BPM Standing Heart Rate Pre-Dialysis 112 BPM Standing Heart Rate Post-Dialysis 105 BPM Temperature Pre-Dialysis 97.6 degF Temperature Post -Dialysis 97.8 degF December 09, 2022 In-Center Hemodialysis Treatment [id number]:37:00.000Z [id number]:43:12.000Z BP Sitting (Pre-Dialysis) 183/124 mmHg BP Sitting (Post-Dialysis) 183/131 mmHg Concurrent Access: falseCentral Venous Catheter (CVC) Chest (Right) Arterial BP Standing (Pre-Dialysis) 167/118 mmHg BP Standing (P ost-Dialysis) 168/118 mmHg Sitting Heart Rate Pre-Dialysis 69 BPM Sitting Heart Rate Post-Dialysis 80 BPM Standing Heart Rate Pre-Dialysis 69 BPM Standing Heart Rate Post-Dialysis 92 BPM Temperature Pre-Dialysis 97.3 degF Temperature Post -Dialysis 97.2 degF December 07, 2022 In-Center Hemodialysis Treatment [id number]:30:00.000Z [id number]:58:57.000Z BP Sitting (Pre-Dialysis) 163/109 mmHg BP Sitting (Post-Dialysis) 145/109 mmHg Concurrent Access: falseCentral Venous Catheter (CVC) Chest (Right) Arterial Sitting Heart Rate Pre-Dialysis 87 BPM BP Standing (Post-Dialysis) 118/82 mmHg Temperature Pre-Dialysis 97.1 degF Sitting Heart Ra te Post-Dialysis 80 BPM Standing Heart Rate Post-Nusrat lysis 82 BPM Temperature Post-Dialysis 97 .3 degF December 04, 2022 In-Center Hemodialysis Treatment [id number]:11:00.000Z [id number]:12:00.000Z BP Sitting (Pre-Dialysis) 164/75 mmHg BP Sitting (Post-Dialysis) 180/118 mmHg Concurrent Access: falseCentral Venous Catheter (CVC) Chest (Right) Arterial BP Standing (Pre-Dialysis) 151/110 mmHg BP Standing (P ost-Dialysis) 187/116 mmHg Sitting Heart Rate Pre-Dialysis 60 BPM Sitting Heart Rate Post-Dialysis 66 BPM Standing Heart Rate Pre-Dialysis 80 BPM Standing Heart Rate Post-Dialysis 82 BPM Temperature Pre-Dialysis 97.5 degF Temperature Post -Dialysis 97.2 degF DIALYSIS ORDER Dialysis Procedure Orders Type of Dialysis Procedure Order Order Date/Time Observations In-Center Hemodialysis Treatment January 26, 2025 Target Weight 124 kg Dialysate Flow Rate 800 mL/min Blood Flow Rate 450 mL/min Treatment Time 210 min(total) Max UF Rate 13 mL/kg/hr dialysate_temp 37 C BiCarb Dialysate BiCarbonate 35 meq/L Access Concurrent No Arterial Access AV Fistula (Forearm (Left)) Venous Access AV Fistula (Forearm (Left)) Arterial Needle Display NIPRO, TULIP, 15 G x 1 , SHARP , TWIN Venous Needle NIPRO, TULIP, 15G x 1 , SHARP , TWIN Dialyzer [employer]ius Optiflux F 180NR 1218 [email or web address] Dialysate Bath Potassium Potassium 3 mEq /L Dialysate Bath Calcium Calcium 2.5 mEq/L Results Adequacy Description Draw Date Result/Unit Status Ref Range Result Comments URR% 2025-03-23 16:57:02 72 % F DIALYZER FLOW-QD 2025-03-23 16:57:02 808 mL/min F Dialyzer GIANLUCA 2025-03-23 16:57:02 1218 Calc F WEIGHT - POST DAY 1 2025-03-23 16:57:02 123.7 kg F VT (KT/V TX VOL) 2025-03-23 16:57:02 46.7 L F Total Kt/V 2025-03-23 16:57:02 1.4 F AMPUTATE FACTOR 2025-03-23 16:57:02 0 F stdKt/V (DIAL) 2025-03-23 16:57:02 N/A F spKt/V 2025-03-23 16:57:02 1.4 F Std Renal KT/V 2025-03-23 16:57:02 N/A F CURRENT KRU 2025-03-23 16:57:02 F Unable to calculate: Pre BUN lab result is unknown LENGTH OF DIALYSIS 2025-03-23 16:57:02 214 min F PATIENT AGE 2025-03-23 16:57:02 29 Years F BSA ARI 2025-03-23 16:57:02 2.43 sq m F WEIGHT - PRE DAY 1 2025-03-23 16:57:02 126.2 kg F HEIGHT IN INCHES 2025-03-23 16:57:02 72 Inches F WEIGHT (KG) 2025-03-23 16:57:02 124 kg F PRESCRIBED DAYS/WEEK 2025-03-23 16:57:02 3 Day/Wk F VM (KT/V MEAN VOL) 2025-03-23 16:57:02 47.7 F Residual kt/v 2025-03-23 16:57:02 F Unable to calculate: Pre BUN lab result is unknown KT/V PRESCRIBED 2025-03-23 16:57:02 1.32 F nPCR 2025-03-23 16:57:02 0.54 G/KG/D F TBW ([facility]) 2025-03-23 16:57:02 61.01 Liters F eKt/V 2025-03-23 16:57:02 1.2 F stdKT/V Total 2025-03-23 16:57:02 N/A F TOTAL HOURS/WEEK DIALYSIS 2025-03-23 16:57:02 3 hrs F BLOOD FLOW-QWB 2025-03-23 16:57:02 432 F Urea nitrogen [Mass/volume] in Serum or Plasma 2025-03-23 16:55:13 79 mg/dL F 9.0-23.0 Creatinine [Mass/volume] in Serum or Plasma 2025-03-23 16:55:13 12.38 mg/dL F 0.7-1.3 Urea nitrogen [Mass/volume] in Serum or Plasma --post dialysis 2025-03-23 16:15:13 22 mg/dL F 9.0-23.0 Creatinine [Mass/volume] in Serum or Plasma 2025-02-19 23:41:15 11.8 mg/dL F 0.7-1.3 DIALYZER FLOW-QD 2025-02-15 18:15:12 813 mL/min F URR% 2025-02-15 18:15:12 71 % F BSA ARI 2025-02-15 18:15:12 2.43 sq m F LENGTH OF DIALYSIS 2025-02-15 18:15:12 209 min F WEIGHT - PRE DAY 1 2025-02-15 18:15:12 128.7 kg F HEIGHT IN INCHES 2025-02-15 18:15:12 72 Inches F PRESCRIBED DAYS/WEEK 2025-02-15 18:15:12 3 Day/Wk F Residual kt/v 2025-02-15 18:15:12 F VM (KT/V MEAN VOL) 2025-02-15 18:15:12 48 F KT/V PRESCRIBED 2025-02-15 18:15:12 1.29 F Total Kt/V 2025-02-15 18:15:12 1.41 F stdKT/V Total 2025-02-15 18:15:12 N/A F TBW ([facility]) 2025-02-15 18:15:12 61.21 Liters F BLOOD FLOW-QWB 2025-02-15 18:15:12 450 F CURRENT KRU 2025-02-15 18:15:12 F PATIENT AGE 2025-02-15 18:15:12 29 Years F Dialyzer GIANLUCA 2025-02-15 18:15:12 1218 Calc F WEIGHT - POST DAY 1 2025-02-15 18:15:12 124.3 kg F WEIGHT (KG) 2025-02-15 18:15:12 124 kg F VT (KT/V TX VOL) 2025-02-15 18:15:12 46.3 L F nPCR 2025-02-15 18:15:12 0.65 G/KG/D F AMPUTATE FACTOR 2025-02-15 18:15:12 0 F stdKt/V (DIAL) 2025-02-15 18:15:12 N/A F eKt/V 2025-02-15 18:15:12 1.2 F spKt/V 2025-02-15 18:15:12 1.41 F Std Renal KT/V 2025-02-15 18:15:12 N/A F TOTAL HOURS/WEEK DIALYSIS 2025-02-15 18:15:12 3 hrs F Urea nitrogen [Mass/volume] in Serum or Plasma 2025-02-15 18:13:20 99 mg/dL F 9.0-23.0 Urea nitrogen [Mass/volume] in Serum or Plasma --post dialysis 2025-02-14 21:19:22 29 mg/dL F 9.0-23.0 DIALYZER FLOW-QD 2025-01-23 02:34:05 800 mL/min F WEIGHT - POST DAY 1 2025-01-23 02:34:05 124.3 kg F HEIGHT IN INCHES 2025-01-23 02:34:05 72 Inches F WEIGHT (KG) 2025-01-23 02:34:05 124.5 kg F KT/V PRESCRIBED 2025-01-23 02:34:05 1.32 F nPCR 2025-01-23 02:34:05 0.71 G/KG/D F AMPUTATE FACTOR 2025-01-23 02:34:05 0 F spKt/V 2025-01-23 02:34:05 1.36 F Std Renal KT/V 2025-01-23 02:34:05 F Unable to calculate: Post BUN lab result is unknown stdKt/V (DIAL) 2025-01-23 02:34:05 2.86 F TOTAL HOURS/WEEK DIALYSIS 2025-01-23 02:34:05 14 hrs F CURRENT KRU 2025-01-23 02:34:05 F Unable to calculate: Post BUN lab result is unknown URR% 2025-01-23 02:34:05 70 % F LENGTH OF DIALYSIS 2025-01-23 02:34:05 214 min F Dialyzer GIANLUCA 2025-01-23 02:34:05 1218 Calc F PATIENT AGE 2025-01-23 02:34:05 29 Years F BSA ARI 2025-01-23 02:34:05 2.44 sq m F WEIGHT - PRE DAY 1 2025-01-23 02:34:05 125.6 kg F PRESCRIBED DAYS/WEEK 2025-01-23 02:34:05 3 Day/Wk F VT (KT/V TX VOL) 2025-01-23 02:34:05 44.6 L F VM (KT/V MEAN VOL) 2025-01-23 02:34:05 48.5 F Residual kt/v 2025-01-23 02:34:05 N/A F Total Kt/V 2025-01-23 02:34:05 N/A F TBW ([facility]) 2025-01-23 02:34:05 61.21 Liters F eKt/V 2025-01-23 02:34:05 1.16 F stdKT/V Total 2025-01-23 02:34:05 2.86 F BLOOD FLOW-QWB 2025-01-23 02:34:05 375 F Urea nitrogen [Mass/volume] in Serum or Plasma --post dialysis 2025-01-23 02:32:14 13 mg/dL F 9.0-23.0 Urea nitrogen [Mass/volume] in Serum or Plasma 2025-01-22 15:24:23 44 mg/dL F 9.0-23.0 Creatinine [Mass/volume] in Serum or Plasma 2025-01-22 15:24:23 9.61 mg/dL F 0.7-1.3 Anemia Description Draw Date Result/Unit Status Ref Range Result Comments HCT CALC HGBX3 2025-03-24 21:24:11 35.7 % F 42.0-52.0 Erythrocytes [#/volume] in Blood by Automated count 2025-03-24 21:23:09 3.57 x 10^6 cells/uL F 4.6-6.2 Hematocrit [Volume Fraction] of Blood by Automated count 2025-03-24 21:23:09 36.2 % F 41.0-53.0 MCV [Entitic volume] by Automated count 2025-03-24 21:23:09 101.5 fL F 80.0-100.0 MCHC [Mass/volume] by Automated count 2025-03-24 21:23:09 32.9 g/dL F 29.6-35.3 Erythrocyte distribution width [Ratio] by Automated count 2025-03-24 21:23:09 12.2 % F 11.0-15.0 Hemoglobin [Mass/volume] in Blood 2025-03-24 21:23:09 11.9 g/dL F 14.0-18.0 MCH [Entitic mass] by Automated count 2025-03-24 21:23:09 33.4 pg F 25.9-34.2 Platelets [#/volume] in Blood by Automated count 2025-03-24 21:23:09 207 x 10^3 cells/uL F 140.0-450.0 IRON SATURATION 2025-03-23 19:55:57 52 % F 21.0-49.0 TIBC 2025-03-23 19:55:57 243 ug/dL F 250.0-425.0 Iron [Mass/volume] in Serum or Plasma 2025-03-23 19:54:15 126 ug/dL F 65.0-175.0 Iron binding capacity.unsaturated [Mass/volume] in Serum or Plasma 2025-03-23 19:54:15 117 ug/dL F 75.0-360.0 Transferrin [Mass/volume] in Serum or Plasma 2025-03-23 16:55:13 200 mg/dL F 215.0-365.0 Ferritin [Mass/volume] in Serum or Plasma 2025-03-23 16:39:13 468 ng/mL F 11.0-307.0 HCT CALC HGBX3 2025-03-09 16:33:26 see comments F 42.0-52.0 Unable to Calculate. Hemoglobin [Mass/volume] in Blood 2025-03-09 16:32:55 F RECOLLECT - OUTDATED SPECIMEN IRON SATURATION 2025-02-20 08:26:33 59 % F 21.0-49.0 TIBC 2025-02-20 08:26:33 239 ug/dL F 250.0-425.0 Iron binding capacity.unsaturated [Mass/volume] in Serum or Plasma 2025-02-20 08:00:55 98 ug/dL F 75.0-360.0 Iron [Mass/volume] in Serum or Plasma 2025-02-20 06:16:56 141 ug/dL F 65.0-175.0 Transferrin [Mass/volume] in Serum or Plasma 2025-02-19 23:41:15 187 mg/dL F 215.0-365.0 Ferritin [Mass/volume] in Serum or Plasma 2025-02-19 20:32:21 568 ng/mL F 22.0-322.0 HCT CALC HGBX3 2025-02-19 19:30:12 34.5 % F 42.0-52.0 Erythrocyte distribution width [Ratio] by Automated count 2025-02-19 19:29:13 12.2 % F 11.0-15.0 Hematocrit [Volume Fraction] of Blood by Automated count 2025-02-19 19:29:13 34.3 % F 41.0-53.0 Hemoglobin [Mass/volume] in Blood 2025-02-19 19:29:13 11.5 g/dL F 14.0-18.0 MCH [Entitic mass] by Automated count 2025-02-19 19:29:13 34 pg F 25.9-34.2 MCHC [Mass/volume] by Automated count 2025-02-19 19:29:13 33.6 g/dL F 29.6-35.3 Platelets [#/volume] in Blood by Automated count 2025-02-19 19:29:13 231 x 10^3 cells/uL F 140.0-450.0 Erythrocytes [#/volume] in Blood by Automated count 2025-02-19 19:29:13 3.4 x 10^6 cells/uL F 4.6-6.2 MCV [Entitic volume] by Automated count 2025-02-19 19:29:13 101.1 fL F 80.0-100.0 Hemoglobin [Mass/volume] in Blood 2025-02-13 04:59:59 11.7 g/dL F 14.1-18 HCT CALC HGBX3 2025-02-06 01:48:38 34.2 % F 42.0-52.0 Hemoglobin [Mass/volume] in Blood 2025-02-06 01:37:13 11.4 g/dL F 14.0-18.0 HCT CALC HGBX3 2025-01-22 19:29:43 34.2 % F 42.0-52.0 Erythrocyte distribution width [Ratio] by Automated count 2025-01-22 19:29:12 12.9 % F 11.0-15.0 Erythrocytes [#/volume] in Blood by Automated count 2025-01-22 19:29:10 3.41 x 10^6 cells/uL F 4.6-6.2 Hemoglobin [Mass/volume] in Blood 2025-01-22 19:29:10 11.4 g/dL F 14.0-18.0 MCV [Entitic volume] by Automated count 2025-01-22 19:29:10 102.4 fL F 80.0-100.0 MCH [Entitic mass] by Automated count 2025-01-22 19:29:10 33.6 pg F 25.9-34.2 MCHC [Mass/volume] by Automated count 2025-01-22 19:29:10 32.8 g/dL F 29.6-35.3 Hematocrit [Volume Fraction] of Blood by Automated count 2025-01-22 19:29:10 34.9 % F 41.0-53.0 Platelets [#/volume] in Blood by Automated count 2025-01-22 19:29:10 209 x 10^3 cells/uL F 140.0-450.0 Transferrin [Mass/volume] in Serum or Plasma 2025-01-22 15:24:23 181 mg/dL F 215.0-365.0 HCT CALC HGBX3 2025-01-03 16:12:15 29.1 % F 42.0-52.0 Hemoglobin [Mass/volume] in Blood 2025-01-03 16:11:14 9.7 g/dL F 14.0-18.0 Comorbidities Description Draw Date Result/Unit Status Ref Range Result Comments Hemoglobin A1c/Hemoglobin.total in Blood 2025-02-19 19:58:09 4.6 %A1c F 0.0-5.6 FluidBP Description Draw Date Result/Unit Status Ref Range Result Comments Sodium [Moles/volume] in Serum or Plasma 2025-03-23 19:54:06 140 mEq/L F 136.0-145.0 Sodium [Moles/volume] in Serum or Plasma 2025-02-20 06:16:54 136 mEq/L F 132.0-146.0 Sodium [Moles/volume] in Serum or Plasma 2025-01-22 20:18:39 138 mEq/L F 132.0-146.0 General Description Draw Date Result/Unit Status Ref Range Result Comments Chloride [Moles/volume] in Serum or Plasma 2025-03-23 19:54:06 103 mEq/L F 98.0-107.0 Alanine aminotransferase [Enzymatic activity/volume] in Serum or Plasma 2025-03-23 16:55:13 10 U/L F 10.0-49.0 Aspartate aminotransferase [Enzymatic activity/volume] in Serum or Plasma 2025-03-23 16:55:13 8 U/L F 0.0-33.0 Chloride [Moles/volume] in Serum or Plasma 2025-02-20 06:16:54 101 mEq/L F 99.0-109.0 Alanine aminotransferase [Enzymatic activity/volume] in Serum or Plasma 2025-02-19 23:41:15 13 U/L F 10.0-49.0 Aspartate aminotransferase [Enzymatic activity/volume] in Serum or Plasma 2025-02-19 23:41:15 11 U/L F 0.0-33.0 Aluminum [Mass/volume] in Serum or Plasma 2025-02-19 19:55:24 10 ug/L F 0.0-9.0 Chloride [Moles/volume] in Serum or Plasma 2025-01-22 20:18:39 98 mEq/L F 99.0-109.0 Alanine aminotransferase [Enzymatic activity/volume] in Serum or Plasma 2025-01-22 15:24:23 13 U/L F 10.0-49.0 Aspartate aminotransferase [Enzymatic activity/volume] in Serum or Plasma 2025-01-22 15:24:23 13 U/L F 0.0-33.0 InfectionVaccination Description Draw Date Result/Unit Status Ref Range Result Comments Neutrophils/100 leukocytes in Blood by Automated count 2025-03-24 21:23:09 65.8 % F Lymphocytes/100 leukocytes in Blood by Automated count 2025-03-24 21:23:09 24.7 % F Neutrophils [#/volume] in Blood by Automated count 2025-03-24 21:23:09 4507 Cells/uL F 2000.0-8800.0 Eosinophils [#/volume] in Blood by Automated count 2025-03-24 21:23:09 226 Cells/uL F 0.0-700.0 Basophils/100 leukocytes in Blood by Automated count 2025-03-24 21:23:09 1.3 % F Monocytes/100 leukocytes in Blood by Automated count 2025-03-24 21:23:09 4.9 % F Eosinophils/100 leukocytes in Blood by Automated count 2025-03-24 21:23:09 3.3 % F Leukocytes [#/volume] in Blood by Automated count 2025-03-24 21:23:09 6.8 x 10^3 cells/uL F 4.0-11.0 Lymphocytes [#/volume] in Blood by Automated count 2025-03-24 21:23:09 1692 Cells/uL F 620.0-3660.0 Monocytes [#/volume] in Blood by Automated count 2025-03-24 21:23:09 336 Cells/uL F 0.0-1100.0 Basophils [#/volume] in Blood by Automated count 2025-03-24 21:23:09 89 Cells/uL F 0.0-400.0 Monocytes/100 leukocytes in Blood by Automated count 2025-02-19 19:29:13 5.5 % F Eosinophils [#/volume] in Blood by Automated count 2025-02-19 19:29:13 290 Cells/uL F 0.0-700.0 Basophils/100 leukocytes in Blood by Automated count 2025-02-19 19:29:13 1.6 % F Neutrophils/100 leukocytes in Blood by Automated count 2025-02-19 19:29:13 67 % F Lymphocytes/100 leukocytes in Blood by Automated count 2025-02-19 19:29:13 21.5 % F Eosinophils/100 leukocytes in Blood by Automated count 2025-02-19 19:29:13 4.4 % F Leukocytes [#/volume] in Blood by Automated count 2025-02-19 19:29:13 6.6 x 10^3 cells/uL F 4.0-11.0 Neutrophils [#/volume] in Blood by Automated count 2025-02-19 19:29:13 4415 Cells/uL F 2000.0-8800.0 Lymphocytes [#/volume] in Blood by Automated count 2025-02-19 19:29:13 1417 Cells/uL F 620.0-3660.0 Monocytes [#/volume] in Blood by Automated count 2025-02-19 19:29:13 362 Cells/uL F 0.0-1100.0 Basophils [#/volume] in Blood by Automated count 2025-02-19 19:29:13 105 Cells/uL F 0.0-400.0 Eosinophils [#/volume] in Blood by Automated count 2025-01-22 19:29:12 216 Cells/uL F 0.0-700.0 Lymphocytes/100 leukocytes in Blood by Automated count 2025-01-22 19:29:10 29.1 % F Basophils/100 leukocytes in Blood by Automated count 2025-01-22 19:29:10 0.6 % F Monocytes/100 leukocytes in Blood by Automated count 2025-01-22 19:29:10 5.7 % F Neutrophils [#/volume] in Blood by Automated count 2025-01-22 19:29:10 3886 Cells/uL F 2000.0-8800.0 Lymphocytes [#/volume] in Blood by Automated count 2025-01-22 19:29:10 1845 Cells/uL F 620.0-3660.0 Neutrophils/100 leukocytes in Blood by Automated count 2025-01-22 19:29:10 61.3 % F Eosinophils/100 leukocytes in Blood by Automated count 2025-01-22 19:29:10 3.4 % F Leukocytes [#/volume] in Blood by Automated count 2025-01-22 19:29:10 6.3 x 10^3 cells/uL F 4.0-11.0 Monocytes [#/volume] in Blood by Automated count 2025-01-22 19:29:10 361 Cells/uL F 0.0-1100.0 Basophils [#/volume] in Blood by Automated count 2025-01-22 19:29:10 38 Cells/uL F 0.0-400.0 MineralBone Disorder Description Draw Date Result/Unit Status Ref Range Result Comments CA CORRECTED 2025-03-23 19:58:32 9.4 mg/dL F CA/PHOS PRODUCT 2025-03-23 19:55:57 71.4 Calc F 21.0-53.0 CA*PO4 CORRCTD 2025-03-23 19:55:57 71.4 Calc F 21.0-53.0 Calcium [Mass/volume] in Serum or Plasma 2025-03-23 19:54:15 9.4 mg/dL F 8.7-10.4 Phosphate [Mass/volume] in Serum or Plasma 2025-03-23 16:55:13 7.6 mg/dL F 2.4-5.1 Alkaline phosphatase [Enzymatic activity/volume] in Serum or Plasma 2025-03-23 16:55:13 56 U/L F 46.0-116.0 Parathyrin.intact [Mass/volume] in Serum or Plasma 2025-03-23 16:39:13 391 pg/mL F 18.0-80.0 25-Hydroxyvitamin D3+25-Hydroxyvitamin D2 [Mass/volume] in Serum or Plasma 2025-02-20 07:42:40 30.9 ng/mL F CA CORRECTED 2025-02-20 06:21:01 9.1 mg/dL F CA/PHOS PRODUCT 2025-02-20 06:18:41 56.4 Calc F 21.0-53.0 CA*PO4 CORRCTD 2025-02-20 06:18:41 56.4 Calc F 21.0-53.0 Calcium [Mass/volume] in Serum or Plasma 2025-02-20 06:16:54 9.1 mg/dL F 8.7-10.4 Phosphate [Mass/volume] in Serum or Plasma 2025-02-19 23:41:15 6.2 mg/dL F 2.4-5.1 Alkaline phosphatase [Enzymatic activity/volume] in Serum or Plasma 2025-02-19 23:41:15 57 U/L F 46.0-116.0 Parathyrin.intact [Mass/volume] in Serum or Plasma 2025-02-19 20:32:21 430 pg/mL F 18.0-80.0 CA CORRECTED 2025-01-22 20:23:02 9.4 mg/dL F CA/PHOS PRODUCT 2025-01-22 20:20:29 52.6 Calc F 21.0-53.0 CA*PO4 CORRCTD 2025-01-22 20:20:29 52.6 Calc F 21.0-53.0 Calcium [Mass/volume] in Serum or Plasma 2025-01-22 20:18:39 9.4 mg/dL F 8.7-10.4 Parathyrin.intact [Mass/volume] in Serum or Plasma 2025-01-22 20:10:14 469 pg/mL F 18.0-80.0 Alkaline phosphatase [Enzymatic activity/volume] in Serum or Plasma 2025-01-22 15:24:23 51 U/L F 46.0-116.0 Phosphate [Mass/volume] in Serum or Plasma 2025-01-22 15:24:23 5.6 mg/dL F 2.4-5.1 Nutrition Description Draw Date Result/Unit Status Ref Range Result Comments Potassium [Moles/volume] in Serum or Plasma 2025-03-23 19:54:06 3.8 mEq/L F 3.5-5.1 A/G RATIO 2025-03-23 16:56:05 1.8 Calc F 1.0-2.5 GLOBULIN 2025-03-23 16:56:05 2.5 g/dL F 0.9-5.0 Bicarbonate [Moles/volume] in Serum or Plasma 2025-03-23 16:55:13 16 mEq/L F 20.0-31.0 Glucose [Mass/volume] in Serum or Plasma 2025-03-23 16:55:13 124 mg/dL F 74.0-106.0 Lactate dehydrogenase [Enzymatic activity/volume] in Serum or Plasma 2025-03-23 16:55:13 161 U/L F 120.0-246.0 Protein [Mass/volume] in Serum or Plasma 2025-03-23 16:55:13 7 g/dL F 5.7-8.2 Albumin [Mass/volume] in Serum or Plasma by Bromocresol green (BCG) dye binding method 2025-03-23 16:55:13 4.5 g/dL F 3.2-4.8 Potassium [Moles/volume] in Serum or Plasma 2025-03-10 03:41:04 3.8 mEq/L F 3.5-5.5 Cobalamin (Vitamin B12) [Mass/volume] in Serum or Plasma 2025-02-20 07:43:18 1329 pg/mL F 211.0-911.0 Folate [Mass/volume] in Serum or Plasma 2025-02-20 07:43:18 6.3 ng/mL F See_Comment [Automated [employer]] The system which generated this result transmitted reference range: -5.5. The reference range was not used to interpret this result as normal/abnormal. Potassium [Moles/volume] in Serum or Plasma 2025-02-20 06:16:54 3.9 mEq/L F 3.5-5.5 CHOL/HDL RATIO 2025-02-19 23:42:11 3.5 Calc F 3.3-5.0 A/G RATIO 2025-02-19 23:42:11 1.8 Calc F 1.0-2.5 GLOBULIN 2025-02-19 23:42:11 2.4 g/dL F 0.9-5.0 LDL-CHOLESTEROL 2025-02-19 23:42:11 55 mg/dL F 0.0-99.0 VLDL-CHOL(CALC) 2025-02-19 23:42:11 15 mg/dL F 0.0-29.0 Albumin [Mass/volume] in Serum or Plasma by Bromocresol green (BCG) dye binding method 2025-02-19 23:41:15 4.4 g/dL F 3.4-4.8 Cholesterol [Mass/volume] in Serum or Plasma 2025-02-19 23:41:15 98 mg/dL F 0.0-199.0 Protein [Mass/volume] in Serum or Plasma 2025-02-19 23:41:15 6.8 g/dL F 5.7-8.2 Bicarbonate [Moles/volume] in Serum or Plasma 2025-02-19 23:41:15 22 mEq/L F 20.0-31.0 Glucose [Mass/volume] in Serum or Plasma 2025-02-19 23:41:15 121 mg/dL F 70.0-99.0 Lactate dehydrogenase [Enzymatic activity/volume] in Serum or Plasma 2025-02-19 23:41:15 157 U/L F 120.0-246.0 Protein [Mass/volume] in Serum or Plasma 2025-02-19 23:41:15 76 mg/dL F 0.0-149.0 Cholesterol in HDL [Mass/volume] in Serum or Plasma 2025-02-19 23:41:15 28 mg/dL F 40.0-60.0 Potassium [Moles/volume] in Serum or Plasma 2025-02-13 04:59:59 4.1 mmol/L F 3.5-5.1 Potassium [Moles/volume] in Serum or Plasma 2025-02-06 06:27:11 3.9 mEq/L F 3.5-5.5 Potassium [Moles/volume] in Serum or Plasma 2025-01-22 20:18:39 3.8 mEq/L F 3.5-5.5 GLOBULIN 2025-01-22 15:25:20 2.4 g/dL F 0.9-5.0 A/G RATIO 2025-01-22 15:25:20 1.9 Calc F 1.0-2.5 Bicarbonate [Moles/volume] in Serum or Plasma 2025-01-22 15:24:23 26 mEq/L F 20.0-31.0 Glucose [Mass/volume] in Serum or Plasma 2025-01-22 15:24:23 127 mg/dL F 70.0-99.0 Protein [Mass/volume] in Serum or Plasma 2025-01-22 15:24:23 7 g/dL F 5.7-8.2 Albumin [Mass/volume] in Serum or Plasma by Bromocresol green (BCG) dye binding method 2025-01-22 15:24:23 4.6 g/dL F 3.4-4.8 Lactate dehydrogenase [Enzymatic activity/volume] in Serum or Plasma 2025-01-22 15:24:23 141 U/L F 120.0-246.0 Potassium [Moles/volume] in Serum or Plasma 2025-01-03 16:43:21 4.5 mEq/L F 3.5-5.5 Potassium [Moles/volume] in Serum or Plasma Encounters No encounter information to report Immunizations Ordered Immunization Name Filled Immunization Name Date Status Comments Refusal Reason Influenza, MDCK, trivalent, preservative 2025-01-25 14:06:04 TST-PPD intradermal 2024-12-12 13:50:00 TST-PPD intradermal 2023-12-12 15:00:00 TB RAQ 2023-12-12 04:00:00 Pneumococcal conjugate PCV20, polysaccharide [id number] conjugate, adjuvant, PF 2023-03-22 17:31:13 TST-PPD intradermal 2022-12-18 14:45:40 TST-PPD intradermal 2022-12-04 14:45:00 TB RAQ 2022-12-04 04:00:00 Plan of Treatment Planned Activity Provider Planned Date Details Commen ts Future Scheduled Test Aman Potter 2025-08-09 04:00:00 25-Hydroxyvitamin D3+25-Hydroxyvitamin D2 [Mass/volume] in Serum or Plasma [code = 34074-1] Diagnostic Test Pending [facility] 2022-12-07 04:00:00 Aluminum [Mass/volume] in Serum or Plasma [code = 5574-9] Diagnostic Test Pending [facility] 2025-03-15 06:55:40 Hemoglobin [Mass/volume] in Blood [code = 718-7] Diagnostic Test Pending [facility] 2022-12-07 04:00:00 Hemoglobin A1c/Hemoglobin.total in Blood [code = 4548-4] Diagnostic Test Pending [facility] 2022-12-07 04:00:00 Creatinine [Mass/volume] in Serum or Plasma [code = 2160-0] Diagnostic Test Pending [facility] 2022-12-04 05:30:54 Alanine aminotransferase [Enzymatic activity/volume] in Serum or Plasma [code = 1742-6] Diagnostic Test Pending [facility] 2022-12-07 04:00:00 Cobalamin (Vitamin B12) [Mass/volume] in Serum or Plasma [code = 2132-9] Diagnostic Test Pending [facility] 2023-03-10 05:00:00 Potassium [Moles/volume] in Serum or Plasma [code = 2823-3] Diagnostic Test Pending [facility] 2022-12-07 04:00:00 Folate [Mass/volume] in Serum or Plasma [code = 2284-8] Diagnostic Test Pending [facility] 2022-12-07 04:00:00 Sodium [Moles/volume] in Serum or Plasma [code = 2951-2] Diagnostic Test Pending [facility] 2022-12-04 05:30:35 Parathyrin.intact [Mass/volume] in Serum or Plasma [code = 2731-8] Diagnostic Test Pending [facility] 2022-12-07 04:00:00 Glucose [Mass/volume] in Serum or Plasma [code = 2345-7] Diagnostic Test Pending [facility] 2022-12-07 04:00:00 Transferrin [Mass/volume] in Serum or Plasma [code = 3034-6] Diagnostic Test Pending [facility] 2025-03-11 05:00:00 Ferritin [Mass/volume] in Serum or Plasma [code = 2276-4] Diagnostic Test Pending Aman Grossmantian [facility] 2025-01-26 16:20:18 In-Center Hemodialysis Treatment [code = GYP211] Diet Order Kanesaul tian [facility] February 18, 2025 Diet Calorie 30 kcal/kg Fluid Value 1200 mL/d Phosphorus Value 1000 mg/d Potassium Value 2000 mg/d Protein Value 1.5 gm/kg Sodium Value 2000 mg/d Calculated Weight 114 kg dietary_diet_modification Calories Decre ased for Weight Loss;
--- OUTSIDE RECORDS SUMMARY | 2025-03-29 15:53 | XMS_ITS | Clinical Summary ---
Author Organization [facility] Address [address] [place] [address] Care Team Providers Care Account Contact Associate Name Role Phone Richardson Melgoza MD Primary Care Provider + [phone] Source Comments This information has been disclosed [...] therelease of HIV test results or diagnoses. [id number] Health Allergies Active Allergy Reactions Criticality [...] Encounters Date Type Department Care Team Description 03/26/2025 Orders Only [facility] [address] [place] [phone] Clif Cunningham MD 03/22/2025 Telephone [facility] Kidney Transplant at [facility] [address] [facility] [address] [place] [address] Lior Marquez RN 02/18/2025 Telephone [facility] Kidney Transplant at [address] [place] [phone] Lior Marquez RN 02/01/2025 Orders Only [facility] [address] [place] [phone] Clif Cunningham MD from Last 3 Months [...] Health Maintenance Due Date Last Done Comments Alcohol Misuse Screening 2014 Immunization: Pneumococcal (1 of 2 - PCV) 08/15/2015 Immunization: DTaP/Tdap/Td (1 - Tdap) 08/09/2020 Depression Screening 06/21/2024 06/22/2023 Immunization: COVID-19 ( - season) 2024 Immunization: Influenza (MyChart) (#1) 2024 Diabetes Screening 07/24/2025 07/24/2024, 06/22/2023 Renal Function/GFR 07/24/2025 07/24/2024, 06/22/2023 HIV Screening Completed 07/24/2024, 06/22/2023 Hepatitis C Screening (MyChart) Completed , 06/22/2023 Procedures Procedure Name Priority Date/Time Associated Diagnosis Comments HOX - HLA ANTIBODY-DETAILED REPORT Routine 03/26/2025 1:55 PM EST HOX - HLA ANTIBODY-DETAILED REPORT Routine 02/01/2025 1:43 PM EDT HEMOGLOBIN A1C Routine 07/24/2024 11:30 AM EDT Patient on waiting list for kidney transplant ESRD (end stage renal disease) on dialysis ([facility]) Routine history and physical examination of adult HIV 1+2 ANTIBODY/ANTIGEN WITH REFLEX Routine 07/24/2024 11:30 AM EDT Patient on waiting list for kidney transplant ESRD (end stage renal disease) on dialysis ([facility]) Routine history and physical examination of adult BASIC METABOLIC PANEL Routine 07/24/2024 11:30 AM EDT Patient on waiting list for kidney transplant ESRD (end stage renal disease) on dialysis ([facility]) Routine history and physical examination of adult HEPATITIS C ANTIBODY Routine 07/24/2024 11:30 AM EDT Patient on waiting list for kidney transplant ESRD (end stage renal disease) on dialysis ([facility]) Routine history and physical examination of adult from Last 3 Months or Most Recently Relevant to Health Maintenance Results * Hox - HLA Antibody-Detailed Report (03/26/2025 1:55 PM EST) Only the most recent of2 resultswithin the time period is included. 03/26/2025 1:55 PM EST Clif Cunningham MD LAB BLOOD ORDERABLES Final Resul t [facility] [address] [place] [address] * Hepatitis C antibody (07/24/2024 11:30 AM EDT) HCV Ab Nonreactive Nonreactive 07/24/2024 4:47 PM EDT [facility] Comment:Health Department no tified in accordance with reportable infectious disease guidelines. Serum 07/24/2024 11:3 0 AM EDT 07/24/2024 3:37 PM EDT Narrative [facility] - 07/24/2024 4:47 PM EDT Antibodies to HCV not detected; does not exclude the possibility of exposure to HCV. Ana Cruz CNP LAB BLOOD ORDERABLES Final Result Performing Organization Address City/[facility]/ZIP Co de Phone Number [facility] [address] [facility]. [address] * HIV-1 and HIV-2 antibodies (07/24/2024 11:30 AM EDT) HIV 1+2 AB/AGN Nonreactive Nonreactive 07/24/2024 4:30 PM EDT [facility] Serum 07/24/2024 11:3 0 AM EDT 07/24/2024 3:37 PM EDT Narrative [facility] - 07/24/2024 4:30 PM EDT \HIVRNR Ana Cruz POWDER MILL OPERATOR LAB BLOOD ORDERABLES Final Result [facility] [address] [facility]. [address] * Hemoglobin A1c (07/24/2024 11:30 AM EDT) Hemoglobin A1C 4.9 4.0 - 5.6 % 07/24/2024 6:08 PM EDT [facility] Comment: Hemoglobin A1c Interpretation Guidelines: [...] EDT 07/24/2024 4:06 PM EDT Ana Cruz [facility] BLOOD ORDERABLES Final Result Performing Organization Address City/State/[facility] Co de Phone Number [facility] [address] * (ABNORMAL) Basic metabolic panel (07/24/2024 11:30 AM EDT) Pathologist [facility] Sodium 135 133 - 146 mmol/L 07/24/2024 4:33 PM EDT [facility] Potassium 3.5 3.5 - 5.3 mmol/L 07/24/2024 4:33 PM EDT [facility] Chloride 97(L) 98 - 110 mmol/L 07/24/2024 4:33 PM EDT [facility] CO2 21 21 - 33 mmol/L 07/24/2024 4:33 PM EDT [facility] Anion Gap 17(H) 3 - 16 mmol/L 07/24/2024 4:33 PM EDT [facility] BUN 69(H) 7 - 25 mg/dL 07/24/2024 4:33 PM EDT [facility] Creatinine 11.53(H) 0.60 - 1.30 mg/dL 07/24/2024 4:33 PM EDT [facility] Glucose 80 70 - 100 mg/dL 07/24/2024 4:33 PM EDT [facility] Calcium 9.5 8.6 - 10.3 mg/dL 07/24/2024 4:33 PM EDT [facility] Osmolality, Calculated 299 278 - 305 mOsm/kg 07/24/2024 4:33 PM EDT [facility] EGFR 6 07/24/2024 4:33 PM EDT [facility] Comment:As of 2021, the estimated [...] AM EDT 07/24/2024 4:00 PM EDT Ana Cruz [facility] BLOOD ORDERABLES Final Result [facility] [address] [place] [address], [facility] from Last 3 Months or Most Recently Relevant to [place] [address] [employer] [facility] [place] [id number] [employer] [facility] Advance Directives For more information, please contact: [phone] Documents on File Type Date Recorded 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 [place] [id number] PCP - General Family Medicine 08/10/23
--- OUTSIDE RECORDS SUMMARY | 2025-03-29 15:53 | XMS_ITS | Encounter Summary ---
Author Organization [facility] Address [address] [place] [address] Care Team Providers Care Management Instructor Name Role Phone Richardson Melgoza MD Primary Care Provider + [phone] Source Comments This information has been disclosed [...] release of HIV test results or diagnoses. [id number] Health Encounter Details Date Type Department Care Team (Late st Contact Info) Description 02/01/2025 Orders Only [facility] [address] [place] [address] Clif Cunningham MD [address] [facility] [address] [place] [address] Social History Tobacco Use Types [...] VINES LAB BLOOD ORDERABLES Final Resul t [facility] [address] [place] [address] documented in this encounter Visit Diagnoses Not on filedocumented in this encounter Additional Health Concerns Assessment Noted Time PHQ-9 Depression Total Score: 7 06/22/19 24 1:00 PM EDT documented as of this encounter Care Teams Management Instructor Relationship Specialty Start Date End Date Richardson Melgoza MD [address] [place] [id number] PCP - General Family Medicine 08/10/23 documented as of this encounter
--- OUTSIDE RECORDS SUMMARY | 2025-03-29 15:53 | XMS_ITS | Clinical Summary ---
Author Organization [facility] Address [address] [facility] [address] [place] [address] Care Team Providers Care Per Diem Registered Nurse Name Role Phone Richardson Melgoza MD Primary Care Provider [phone] Social History Tobacco Use Types Packs/Day Years [...] to complete this topic Insurance [place] [phone] [facility] Care Teams Per Diem Registered Nurse Relationship Specialty Start Date End Date Richardson Melgoza MD [address] [facility] [address] [place] [address] PCP - General Family Medicine 12/10/24
[2025-03-29 16:03] LABS: Hemoglobin 11.6 g/dL (14.1-18.0)
[2025-03-29 16:10] LABS: Potassium 4.1 mmoL/L (3.5-5.1)
[2025-03-29 16:13] LABS: Calcium 9.6 mg/dl (8.4-10.2)
== END 2025-03-29 23:59 | disposition home or self-care (01) ==
LOC: LAB 15:48
PROVIDERS: PCP Family Medicine; Visit Provider Internal Medicine
DX: N18.6 End stage renal disease (principal)
CPT/HCPCS: 36415; 82310; 84132; 85018